=== PATIENT | male | born 1980 | race Caucasian/White ===

== ENCOUNTER 2016-12-18 00:19 | Observation (INO) | payer OTHER ==
[2016-12-18] MEDS ORDERED: SODIUM CHLORIDE 0.9% 500 ML IV STA (01:00)
[2016-12-18] MEDS ORDERED: SODIUM CHLORIDE 0.9% 1,000 ML IV STA (01:00)
[2016-12-18] MEDS ORDERED: ONDANSETRON 4 MG/2 ML VIAL IVP STA (01:00)
[2016-12-18] MEDS ORDERED: HYDROmorphone 0.5 MG/0.5 ML SYRINGE IVP STA (01:00)
[2016-12-18] MEDS ORDERED: PANTOPRAZOLE 40 MG/10 ML VIAL IVP STA (01:01)
[2016-12-18 01:30] LABS: Basophils % (A) 0 %; CH 30.5; CHCM 34.9; Eosinophils # (A) 0.1 k/uL (0-0.7); Eosinophils % (A) 1 %; HDW 2.67; HGB 15.6 gm/dL (13.0-17.5); Luc % (Auto) 1; Lymphocytes # (A) 1.6 k/uL (1.0-4.8); Lymphocytes % (A) 18 %; MCH 29.7 pg (25.0-35.0); MCHC 33.9 g/dL (31.0-37.0); MCV 87.8 fL (80.0-100.0); Mean Platelet Volume 8.3; Monocytes # (A) 0.5 k/uL (0-1.0); Monocytes % (A) 6 %; Neutrophils # (A) 6.5 k/uL (1.3-7.7); Neutrophils % (A) 74 %; RBC 5.23 m/uL (4.30-5.90); RDW 14.4 % (11.5-15.5); WBC 8.8 k/uL (3.8-10.6)
--- NOTE | 2016-12-18 01:33 | XR ---
EXAMINATION TYPE: XR KUB DATE OF EXAM: 12/18/2016 COMPARISON: NONE HISTORY: Abdominal pain TECHNIQUE: 2 views FINDINGS: There is no sign of intestinal obstruction or pneumoperitoneum. Fecal pattern is normal. Th ere is no sign of a mass. Lung bases are clear. There are no pathologic calcifications. IMPRESSION: Nonacute abdomen.
[2016-12-18 01:34] LABS: ALT 28 U/L (21-72); AST 17 U/L (17-59); Alkaline Phosphatase 94 U/L (38-126); Amylase <30 U/L (30-110); Anion Gap 13 mmol/L; Blood Urea Nitrogen 14 mg/dL (9-20); Calcium 9.7 mg/dL (8.4-10.2); Carbon Dioxide 24 mmol/L (22-30); Chloride 99 mmol/L (98-107); Glucose 206 mg/dL (74-99); Non-African American GFR(MDRD) >60 (>60 ml/min/1.73 sqM); Potassium 3.8 mmol/L (3.5-5.1); Sodium 136 mmol/L (137-145); Total Bilirubin 1.8 mg/dL (0.2-1.3); Total Protein 7.1 g/dL (6.3-8.2)
[2016-12-18 02:08] LABS: Appearance,Urine Clear (Clear); Bilirubin,Urine Negative (Negative); Glucose,Urine (UA) 3+ (Negative); Leukocyte Esterase,Urine Negative (Negative); Nitrite,Urine Negative (Negative); Protein,Urine Trace (Negative); Specific Gravity,Urine 1.018 (1.001-1.035); UA Billing (MACRO vs. MICRO) CHEM
[2016-12-18 02:15] LABS: Ketones,Urine 3+ (Negative)
--- NOTE | 2016-12-18 02:35 | ED ---
Nausea/Vomiting/Diarrhea HPI - General Chief complaint: Nausea/Vomiting/Diarrhea Stated complaint: Vomiting x4days Time Seen by Provider: 12/18/16 00:35 Source: patient Mode of arrival: ambulatory Limitations: no limitations - History of Present Illness Initial comments: 36 year-old male patient with past medical history significant for type 2 diabetes, gastric ulcer, and hiatal hernia presents to emergency department today for evaluation of abdominal pain, nausea, and vomiting since Wednesday. Patient states that Wednesday night he drank a pint of liquor, states that the next day he had onset of the symptoms. He states that he has been vomiting multiple times every day since then. He reports that he has been unable to keep any food or fluids down. He states that the pain is mostly located in his lower abdomen. He denies any radiation of the pain to his back. He describes the pain as a cramping burning pain. He states that he has been having a lot of retching and dry heaves. He states a couple of days ago he did have one episode of hematemesis. States that it was a large amount of bright red blood but denies any further episodes. He denies any constipation or diarrhea. Denies any hematochezia, melena, hematuria, dysuria, urinary frequency, or urinary urgency. Patient denies any recent rash, fever, chills, shortness breath , chest pain, back pain, numbness, tingling, dizziness, weakness, headache, visual changes, or any other complaints. He states that he has been having episodes similar to this over the last few months. Patient states he was admitted inpatient at a different hospital for similar symptoms approximately a month ago. Patient reports that there is no evidence of gastric ulcer with upper GI scope performed at that admission. States he did find a new hiatal hernia at that time. Patient states that he does take metformin for his diabetes however has been unable to keep any pills down over the last couple of days. He states that he does not check his sugar regularly at home. Patient states that he is a social drinker, states that he drinks approximately 3-4 times per month however does drink at least a pint of liquor each event. - Related Data Home Medications Medication Instructions Recorded Confirmed HYDROcodone/APAP 5-325MG [[place] 5] 1 each PO Q6HR PRN 12/01/14 12/01/14 metFORMIN HCL [Glucophage] 850 mg PO DAILY 12/01/14 12/01/14 Previous Rx's Medication Instructions Recorded Cephalexin [Keflex] 500 mg PO Q6HR #20 cap 12/01/14 Allergies Allergy/AdvReac Type Severity Reaction Status Date / Time morphine AdvReac Nausea & Verified 12/18/16 00:27 Vomiting Review of Systems ROS Statement: Those systems with pertinent positive or pertinent negative responses have been documented in the HPI. ROS Other: All systems not noted in ROS Statement are negative. Past Medical History Past Medical History: Diabetes Mellitus History of Any Multi-Drug Resistant Organisms: MRSA Date of last positivie culture/infection: December 2012 Additional Past Surgical History / Comment(s): left arm surgary with skin graft Past Psychological History: No Psychological Hx Reported Smoking Status: Current every day smoker Past Alcohol Use History: Heavy Past Drug Use History: None Reported General Exam Limitations: no limitations General appearance: alert, in distress, other (This is a well-developed, well- nourished 36-year-old male patient in mild distress. Vital signs upon presentation are temperature 97.8F, pulse 76, respirations 18, blood pressure 172/98, pulse ox 100% on room air.) Eye exam: Present: normal appearance, PERRL, EOMI. Absent: scleral icterus, conjunctival injection, periorbital swelling ENT exam: Present: normal exam, normal oropharynx. Absent: mucous membranes moist (Dry lips, dry mucous membranes.) Respiratory exam: Present: normal lung sounds bilaterally. Absent: respiratory distress, wheezes, rales, rhonchi, stridor Cardiovascular Exam: Present: regular rate, normal rhythm, normal heart sounds. Absent: systolic murmur, diastolic murmur, rubs, gallop, clicks GI/Abdominal exam: Present: soft, tenderness (Mild lower abdominal tenderness), normal bowel sounds. Absent: distended, guarding, rebound, rigid Neurological exam: Present: alert, oriented X3, CN II-XII intact Psychiatric exam: Present: normal affect, normal mood, anxious Skin exam: Present: warm, dry, intact, normal color. Absent: rash Course Vital Signs 12/18/16 12/18/16 12/18/16 00:25 01:16 02:29 Temperature 97.8 F 98.9 F Pulse Rate 76 65 62 Respiratory 18 20 18 Rate Blood Pressure 172/98 166/99 145/79 O2 Sat by Pulse 100 100 100 Oximetry Medical Decision Making - Medical Decision Making This is a 36 year-old male patient who presented tonight for complaints of abdominal pain, nausea, and vomiting for the last 4 days. Labs are performed and did show a glucose of 206, bilirubin 1.8, anion gap was 13, carbon dioxide was 24. Urinalysis shows trace protein, 3+ glucose, 3+ ketones. Patient did have mild improvement of symptoms with medication and fluids given here in the department. Patient will be admitted to Dr. Jamison for hyperglycemia and intractable nausea and vomiting. We will control his symptoms with fluids and nausea medication. We will also add Protonix daily. - Lab Data Result diagrams: 12/18/16 01:00 12/18/16 01:00 Lab Results 12/18/16 12/18/16 12/18/16 Range/Units 01:00 01:00 02:00 WBC 8.8 (3.8-10.6) k/uL RBC 5.23 (4.30-5.90) m/uL Hgb 15.6 (13.0-17.5) gm/dL Hct 46.0 (39.0-53.0) % MCV 87.8 (80.0-100.0) fL MCH 29.7 (25.0-35.0) pg MCHC 33.9 (31.0-37.0) g/dL RDW 14.4 (11.5-15.5) % Plt Count 214 (150-450) k/uL Neutrophils % 74 % Lymphocytes % 18 % Monocytes % 6 % Eosinophils % 1 % Basophils % 0 % Neutrophils # 6.5 (1.3-7.7) k/uL Lymphocytes # 1.6 (1.0-4.8) k/uL Monocytes # 0.5 (0-1.0) k/uL Eosinophils # 0.1 (0-0.7) k/uL Basophils # 0.0 (0-0.2) k/uL Sodium 136 L (137-145) mmol/L Potassium 3.8 (3.5-5.1) mmol/L Chloride 99 (98-107) mmol/L Carbon Dioxide 24 (22-30) mmol/L Anion Gap 13 mmol/L BUN 14 (9-20) mg/dL Creatinine 0.80 (0.66-1.25) mg/dL Est GFR (MDRD) Af Amer >60 (>60 ml/min/1.73 sqM) Est GFR (MDRD) Non-Af >60 (>60 ml/min/1.73 sqM) Glucose 206 H (74-99) mg/dL Calcium 9.7 (8.4-10.2) mg/dL Total Bilirubin 1.8 H (0.2-1.3) mg/dL AST 17 (17-59) U/L ALT 28 (21-72) U/L Alkaline Phosphatase 94 (38-126) U/L Total Protein 7.1 (6.3-8.2) g/dL Albumin 4.3 (3.5-5.0) g/dL Amylase <30 L (30-110) U/L Lipase 69 (23-300) U/L Urine Color Yellow Urine Appearance Clear (Clear) Urine pH 7.0 (5.0-8.0) Ur Specific [place] 1.018 (1.001-1.035) Urine Protein Trace H (Negative) Urine Glucose (UA) 3+ H (Negative) Urine Ketones 3+ H (Negative) Urine Blood Negative (Negative) Urine Nitrite Negative (Negative) Urine Bilirubin Negative (Negative) Urine Urobilinogen 8.0 (<2.0) mg/dL Ur Leukocyte Esterase Negative (Negative) - Radiology Data Radiology results: report reviewed, image reviewed 2 views of the abdomen shows no sign of intestinal obstruction or pneumoperitoneum. Fecal pattern is normal. There is no sign of a mass. Lung bases are clear. There are no pathologic calcifications. Impression by Dr. Martell shows nonacute abdomen. Disposition Clinical Impression: Hyperglycemia, Abdominal pain, Intractable nausea and vomiting Disposition: ADMITTED IP TO THIS [facility] Condition: Fair Referrals: Naz Oliva DO [Primary Care Provider] - 1-2 days Decision to Admit Reason: Admit from EC Decision Date: 12/18/16 Decision Time: 02:42
[2016-12-18] MEDS ORDERED: ONDANSETRON 4 MG/2 ML VIAL IVP PRN (02:43)
[2016-12-18] MEDS ORDERED: NALOXONE 0.4 MG/ML 1 ML VIAL IV PRN (02:43)
[2016-12-18] MEDS: SODIUM CHLORIDE 0.9% 1,000 ML IV SCH ×2 (02:56→15:35)
[2016-12-18 03:07] LABS: Glucose,Whole Blood 173 mg/dL (75-99)
[2016-12-18 07:21] LABS: Glucose,Whole Blood 194 mg/dL (75-99)
[2016-12-18] MEDS: HYDROmorphone 0.5 MG/0.5 ML SYRINGE IVP PRN ×5 (07:28→21:40)
[2016-12-18] MEDS: INSULIN LISPRO (humaLOG) 300 UNIT/3 ML VIAL SQ SCH ×4 (07:28→20:59)
[2016-12-18] MEDS: metFORMIN 500 MG TAB PO SCH (11:24)
[2016-12-18 12:12] LABS: Glucose,Whole Blood 209 mg/dL (75-99)
[2016-12-18] MEDS: ONDANSETRON 4 MG/2 ML VIAL IVP PRN ×2 (14:39→21:03)
[2016-12-18 17:01] LABS: Glucose,Whole Blood 227 mg/dL (75-99)
[2016-12-18] MEDS: METOCLOPRAMIDE 5 MG/ML 2 ML VIAL IVP PRN ×2 (18:09→23:36)
[2016-12-18 21:13] LABS: Glucose,Whole Blood 144 mg/dL (75-99)
--- NOTE | 2016-12-19 00:14 | P.HPIM ---
History of Present Illness H&P Date: 12/18/16 Chief Complaint: Nausea and vomiting Patient is a 36-year-old male with past medical history significant for type 2 diabetes, gastric ulcer, and hiatal hernia presents to ER for evaluation of abdominal pain, nausea, and vomiting since Wednesday. Patient states that Wednesday night he drank a pint of liquor, states that the next day he had onset of the symptoms. He states that he has been vomiting multiple times every day since then. He reports that he has been unable to keep any food or fluids down. He states that the pain is mostly located in his lower abdomen. He denies any radiation of the pain to his back. He describes the pain as a cramping burning pain. He states that he has been having a lot of retching and dry heaves. He states a couple of days ago he did have one episode of hematemesis. He states that he has been having episodes similar to this over the last few months. Patient states he was admitted inpatient at [facility] with for similar symptoms approximately a month ago. Patient reports that there is no evidence of gastric ulcer with upper GI scope performed at that admission. States he did find a new hiatal hernia at that time. Patient states that he does take metformin for his diabetes however has been unable to keep any pills down over the last couple of days. Patient states that he is a social drinker, states that he drinks approximately 3-4 times per month however does drink at least a pint of liquor each event. Review of Systems Constitutional: Patient denies any fever or chills . No generalized weakness or weight loss. Abdomen: Patient does have nausea vomiting and abdominal pain. No diarrhea Cardiovascular: Patient denies any chest pain or short of breath no palpitations. Respiratory: patient denied any cough is from production. No shortness of breath Neurologic: Patient denied any numbness or tingling headache. Musculoskeletal: Patient denies any complaints of joint swelling or deformity. Skin: Negative Psychiatric: Negative Endocrine: No heat or cold intolerance. No recent weight gain. Genitourinary: No dysuria or hematuria. All other 14 point ROS negative except the above Past Medical History Past Medical History: Diabetes Mellitus History of Any Multi-Drug Resistant Organisms: MRSA Date of last positivie culture/infection: December 2012 MDRO Source:: left arm Additional Past Surgical History / Comment(s): left arm surgary with skin graft Past Anesthesia/Blood Transfusion Reactions: No Reported Reaction Past Psychological History: No Psychological Hx Reported Smoking Status: Current every day smoker Past Alcohol Use History: Heavy Past Drug Use History: None Reported - Past Family History Mother Family Medical History: Cancer Additional Family Medical History / Comment(s): skin ca Medications and Allergies Home Medications Medication Instructions Recorded Confirmed Type Ondansetron [Zofran] 4 mg PO Q8H PRN 12/18/16 12/18/16 History Pantoprazole Sodium [Pantoprazole 40 mg PO DAILY 12/18/16 12/18/16 History Sodium] metFORMIN HCL [Glucophage] 500 mg PO DAILY 12/18/16 12/18/16 History Allergies Allergy/AdvReac Type Severity Reaction Status Date / Time morphine AdvReac Nausea & Verified 12/18/16 00:27 Vomiting Physical Exam Vitals: Vital Signs Temp Pulse Pulse Resp BP BP BP 12/18/16 07:00 97.4 F L 69 16 160/102 143/86 12/18/16 03:24 98.9 F 69 18 148/87 12/18/16 03:10 98.7 F 62 18 144/85 12/18/16 02:29 62 18 145/79 12/18/16 01:16 98.9 F 65 20 166/99 12/18/16 00:25 97.8 F 76 18 172/98 Pulse Ox 12/18/16 07:00 99 12/18/16 03:24 99 12/18/16 03:10 100 12/18/16 02:29 100 12/18/16 01:16 100 12/18/16 00:25 100 Intake and Output 12/17/16 12/18/16 12/18/16 22:59 06:59 14:59 Intake Total 590 Balance 590 Intake: Oral 590 Other: # Voids 0 Weight 74.843 kg PHYSICAL EXAMINATION: Patient is lying in the bed comfortably, no acute distress, awake alert and oriented.. HEENT: Normocephalic. Neck is supple. Pupils reactive. Nostrils clear. Oral cavity is moist. Ears reveal no drainage. Neck reveals no JVD, carotid bruits, or thyromegaly. CHEST EXAMINATION: Trachea is central. Symmetrical expansion. Lung brown clear to auscultation and percussion. CARDIAC: Normal S1, S2 with no gallops. No murmurs ABDOMEN: Soft. Mild lower abdominal tenderness. Bowel sounds normal. No organomegaly. No abdominal bruits. Extremities: reveal no edema. No clubbing or cyanosis Neurologically awake, alert, oriented x3 with well-coordinated movements. No focal deficits noted Skin: No rash or skin lesions. Psychiatric: Operative. Nonsuicidal Musculoskeletal: No joint swelling or deformity. Normal range of motion. Results CBC & Chem 7: 12/18/16 01:00 12/18/16 01:00 Labs: Abnormal Lab Results - Last 24 Hours (Table) 12/18/16 12/18/16 12/18/16 Range/Units 01:00 02:00 03:04 Sodium 136 L (137-145) mmol/L Glucose 206 H (74-99) mg/dL POC Glucose (mg/dL) 173 H (75-99) mg/dL Total Bilirubin 1.8 H (0.2-1.3) mg/dL Amylase <30 L (30-110) U/L Urine Protein Trace H (Negative) Urine Glucose (UA) 3+ H (Negative) Urine Ketones 3+ H (Negative) 12/18/16 Range/Units 07:15 Sodium (137-145) mmol/L Glucose (74-99) mg/dL POC Glucose (mg/dL) 194 H (75-99) mg/dL Total Bilirubin (0.2-1.3) mg/dL Amylase (30-110) U/L Urine Protein (Negative) Urine Glucose (UA) (Negative) Urine Ketones (Negative) Thrombosis Risk Factor Assmnt - Choose All That Apply Any of the Below Risk Factors Present?: No Other Risk Factors: No Other congenital or acquired thrombophilia - If yes, enter type in comment: No Thrombosis Risk Factor Assessment Level: Very Low Risk Assessment and Plan Assessment: #1 intractable nausea vomiting or abdominal pain 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 #2 possible gastroparesis with long-standing history of diabetes mellitus for 10 years #3 hiatal hernia with history of EGD a month ago #4 diabetes type 2 with hyperglycemia. Will check HbA1c #5 smoking #6 occasional alcohol use. Plan: Patient will be continued on IV hydration and symptomatic management for nausea and vomiting. Continue the pain management and follow closely. Will consult GI. Insulin sliding scale and further recommendations based on the clinical course.
[2016-12-19] MEDS: ONDANSETRON 4 MG/2 ML VIAL IVP PRN ×2 (03:43→10:18)
[2016-12-19] MEDS: HYDROmorphone 0.5 MG/0.5 ML SYRINGE IVP PRN (03:46)
[2016-12-19] MEDS: SODIUM CHLORIDE 0.9% 1,000 ML IV SCH (03:53)
[2016-12-19 07:30] LABS: Glucose,Whole Blood 162 mg/dL (75-99)
[2016-12-19 07:54] VITALS: RESP 16
[2016-12-19] MEDS: INSULIN LISPRO (humaLOG) 300 UNIT/3 ML VIAL SQ SCH ×2 (08:04→11:58)
[2016-12-19] MEDS: metFORMIN 500 MG TAB PO SCH ×2 (08:04→08:29)
[2016-12-19] MEDS: METOCLOPRAMIDE 5 MG/ML 2 ML VIAL IVP PRN ×2 (08:05→13:39)
[2016-12-19] MEDS ORDERED: HYDROmorphone 1 MG/ML 1 ML SYRINGE IVP PRN (08:23)
[2016-12-19] MEDS ORDERED: PANTOPRAZOLE 40 MG/10 ML VIAL IV SCH (09:00)
[2016-12-19 12:03] LABS: Glucose,Whole Blood 168 mg/dL (75-99)
[2016-12-19 14:45] VITALS: BP 140/87; PULSE 82; TEMP 98.4
--- NOTE | 2017-02-01 21:55 | P.DS ---
Providers Date of admission: 12/18/16 02:52 Expected date of discharge: 12/19/16 Attending physician: Iban Jamison Primary care physician: Naz Oliva [facility] Course: Discharge diagnosis #1 intractable nausea vomiting or abdominal pain 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 #2 possible gastroparesis with long-standing history of diabetes mellitus for 10 years #3 hiatal hernia with history of EGD a month ago #4 diabetes type 2 with hyperglycemia. Will check HbA1c #5 smoking #6 occasional alcohol use. Hospital course Patient is a 36-year-old male with past medical history significant for type 2 diabetes, gastric ulcer, and hiatal hernia presents to ER for evaluation of abdominal pain, nausea, and vomiting since Wednesday. Patient states that Wednesday night he drank a pint of liquor, states that the next day he had onset of the symptoms. He states that he has been vomiting multiple times every day since then. He reports that he has been unable to keep any food or fluids down. He states that the pain is mostly located in his lower abdomen. He denies any radiation of the pain to his back. He describes the pain as a cramping burning pain. He states that he has been having a lot of retching and dry heaves. He states a couple of days ago he did have one episode of hematemesis. He states that he has been having episodes similar to this over the last few months. Patient states he was admitted inpatient at [facility] with for similar symptoms approximately a month ago. Patient reports that there is no evidence of gastric ulcer with upper GI scope performed at that admission. States he did find a new hiatal hernia at that time. Patient states that he does take metformin for his diabetes however has been unable to keep any pills down over the last couple of days. Patient states that he is a social drinker, states that he drinks approximately 3-4 times per month however does drink at least a pint of liquor each event. Patient was continued on IV hydration and symptomatic management for nausea and vomiting. Continued the pain management and followed closely. Insulin sliding scale. Patient did improve clinically. Discharge physical examination was done Patient Condition at Discharge: Fair Plan - Discharge Summary New Discharge Prescriptions: Continue metFORMIN HCL [Glucophage] 500 mg PO DAILY Pantoprazole Sodium 40 mg PO DAILY Ondansetron [Zofran] 4 mg PO Q8H PRN PRN Reason: Nausea No Action Sucralfate [Carafate] 1 gm PO AC-TID Metoclopramide HCl [Reglan] 5 mg PO Q8HR PRN #20 tablet PRN Reason: Nausea And Vomiting Discharge Medication List Ondansetron [Zofran] 4 mg PO Q8H PRN 12/18/16 [History] Pantoprazole Sodium 40 mg PO DAILY 12/18/16 [History] metFORMIN HCL [Glucophage] 500 mg PO DAILY 12/18/16 [History] Sucralfate [Carafate] 1 gm PO AC-TID 12/22/16 [History] Metoclopramide HCl [Reglan] 5 mg PO Q8HR PRN #20 tablet 01/03/17 [Rx] Follow up Appointment(s)/Referral(s): Naz Oliva DO [Primary Care Provider] - 1-2 days Patient Instructions/Handouts: Gastritis (DC), Diet for Stomach Ulcers and Gastritis (GEN) Discharge Disposition: HOME SELF-CARE
== END 2016-12-19 14:58 | disposition home or self-care (01) ==
LOC: EC 00:19 → 4MS4W 02:52
PROVIDERS: ADMIT Hospitalist; ATTEND Hospitalist
DX: R11.2 Nausea with vomiting, unspecified (principal); R10.30 Lower abdominal pain, unspecified; K29.20 Alcoholic gastritis without bleeding; K44.9 Diaphragmatic hernia without obstruction or gangrene; E11.65 Type 2 diabetes mellitus with hyperglycemia; F17.200 Nicotine dependence, unspecified, uncomplicated; Z86.14 Personal history of Methicillin resistant Staphylococcus aureus infection; Z79.84 Long term (current) use of oral hypoglycemic drugs; Z79.899 Other long term (current) drug therapy; Z88.5 Allergy status to narcotic agent; K92.0 Hematemesis
CPT/HCPCS: 99285; 96374 ×2; 96375 ×4; 96361 ×5; 96376 ×2; 36415; 80053; 82150; 83690; 85025; 81003; 83036; 74000; G0378 ×2; J2765 ×2; J2405 ×2; C9113 ×2; J1170 ×2

== ENCOUNTER → 2016-12-25 | Outpatient (CLI) | payer OTHER ==
--- NOTE | 2016-12-25 11:41 | NM ---
EXAMINATION TYPE: NM hepatobiliary w EF DATE OF EXAM: 12/25/2016 COMPARISON: CT abdomen pelvis dated 01/01/2017 HISTORY: Right upper quadrant pain TECHNIQUE: After the intravenous administration of 5.64 mCi Tc 99m Mebrofenin hepatobiliary scintigra phy is performed. Immediate images post injection. FINDINGS: There is satisfactory initial accumulation of tracer by the liver. The gallbladder is visualized wit hin 30 minutes. The small bowel activity is noted within 45 minutes. At one hour 8 ounces of oral e nsure plus is given to mimic CCK and gallbladder ejection fraction is calculated at 40 %, in the norm al range although approaching abnormal. Therefore there is no scintigraphic evidence of cystic or co mmon bile duct obstruction to suggest acute cholecystitis or gallbladder dyskinesia. IMPRESSION: 1. No evidence of acute or chronic cholecystitis. 2. Normal gallbladder ejection fraction of 40% and therefore no scintigraphic evidence of biliary dys kinesia, however the ejection fraction approaches an abnormal value and surgical consultation could b e sought if the patient's symptoms and laboratory values are fitting.
== END | disposition home or self-care (01) ==
LOC: RADNMMAIN 08:59
PROVIDERS: ATTEND Family Medicine
DX: R10.11 Right upper quadrant pain (principal)
CPT/HCPCS: 78226; A9537

== ENCOUNTER 2017-02-20 11:04 | Emergency (ER) | payer OTHER ==
[2017-02-20 11:31] VITALS: RESP 18
[2017-02-20] MEDS ORDERED: SODIUM CHLORIDE 0.9% 1,000 ML IV STA ×2 (12:14)
[2017-02-20] MEDS ORDERED: METOCLOPRAMIDE 5 MG/ML 2 ML VIAL IVP STA (12:14)
[2017-02-20] MEDS ORDERED: KETOROLAC 30 MG/ML 1 ML VIAL IVP STA (12:14)
[2017-02-20] MEDS ORDERED: diphenhydrAMINE 50 MG/ML 1 ML VIAL IVP STA (12:14)
--- NOTE | 2017-02-20 12:27 | ED ---
Abdominal Pain HPI - General Chief Complaint: Abdominal Pain Stated Complaint: ABDOMINAL PAIN Time Seen by Provider: 02/20/17 12:06 Source: patient, RN notes reviewed, old records reviewed Mode of arrival: ambulatory Limitations: no limitations - History of Present Illness Initial Comments: This is a 36-year-old male presents emergency Department a chief complaint of abdominal pain for the past 4 months. Patient reports his been acutely worse over the past few days. He's had multiple episodes of vomiting. He was seen by his primary care provider a few days ago and was given a shot for nausea. Patient states is continue to persist. He is currently on Protonix, Carafate, and Zofran due to gastritis and Peptic ulcers. Patient reports he's been taking his medications. Patient states that the pain is mainly in the lower abdomen at this time. Patient is clinically liquid vomit in the emergency department today. - Related Data Home Medications Medication Instructions Recorded Confirmed Ondansetron [Zofran] 4 mg PO BID 12/18/16 02/20/17 Pantoprazole Sodium 40 mg PO BID 12/18/16 02/20/17 metFORMIN HCL [Glucophage] 500 mg PO BID 12/18/16 02/20/17 Previous Rx's Medication Instructions Recorded Ketorolac [Toradol] 10 mg PO BID #10 tab 02/20/17 Metoclopramide [Reglan] 10 mg PO TID #12 tab 02/20/17 diphenhydrAMINE [Benadryl] 25 mg PO HS PRN #20 capsule 02/20/17 Allergies Allergy/AdvReac Type Severity Reaction Status Date / Time hydromorphone [From Dilaudid] AdvReac Nausea & Verified 02/20/17 12:13 Vomiting morphine AdvReac Nausea & Verified 02/20/17 12:13 Vomiting Review of Systems ROS Statement: Those systems with pertinent positive or pertinent negative responses have been documented in the HPI. ROS Other: All systems not noted in ROS Statement are negative. Past Medical History Past Medical History: Diabetes Mellitus History of Any Multi-Drug Resistant Organisms: MRSA Date of last positivie culture/infection: December 2012 MDRO Source:: left arm Additional Past Surgical History / Comment(s): left arm surgery with skin graft Past Anesthesia/Blood Transfusion Reactions: No Reported Reaction Past Psychological History: No Psychological Hx Reported Smoking Status: Current every day smoker Past Alcohol Use History: Occasional Past Drug Use History: Marijuana - Past Family History Mother Family Medical History: Cancer Additional Family Medical History / Comment(s): skin ca General Exam - General Exam Comments Initial Comments: 36-year-old male. Patient appears in acute discomfort. Limitations: no limitations General appearance: alert, in no apparent distress Head exam: Present: atraumatic, normocephalic, normal inspection Eye exam: Present: normal appearance, PERRL, EOMI. Absent: scleral icterus, conjunctival injection, periorbital swelling ENT exam: Present: normal exam, mucous membranes moist Neck exam: Present: normal inspection. Absent: tenderness, meningismus, lymphadenopathy Respiratory exam: Present: normal lung sounds bilaterally. Absent: respiratory distress, wheezes, rales, rhonchi, stridor Cardiovascular Exam: Present: regular rate, normal rhythm, normal heart sounds. Absent: systolic murmur, diastolic murmur, rubs, gallop, clicks GI/Abdominal exam: Present: soft, tenderness (Minimal lower quadrant tenderness. No rebound or guarding.), normal bowel sounds. Absent: distended, guarding, rebound, rigid Extremities exam: Present: normal inspection, full ROM, normal capillary refill. Absent: tenderness, pedal edema, joint swelling, calf tenderness Back exam: Present: normal inspection Neurological exam: Present: alert, oriented X3, CN II-XII intact Psychiatric exam: Present: normal affect, normal mood Skin exam: Present: warm, dry, intact, normal color. Absent: rash Course Vital Signs 02/20/17 02/20/17 11:28 14:12 Temperature 99.2 F 99.1 F Pulse Rate 89 74 Respiratory 18 18 Rate Blood Pressure 136/101 146/90 O2 Sat by Pulse 100 99 Oximetry - Reevaluation(s) Reevaluation #1: 02/20/17 14:06 Patient is reevaluated and resting heavily bed. Reports he has no abdominal pain at this time. Discussed with primary care provider. Medical Decision Making - Medical Decision Making This is a 36-year-old male presents emergency Department a chief complaint of increased nausea and vomiting over the past 3 days of abdominal pain. Patient is currently being treated for gastritis with Carafate, Pepcid, and Zofran. Patient reports that he's had worsening nausea and lower pain. Patient reports no changes in bowel habits. Patient reports his been having the same pain for the past 4 months. Patient's been evaluated Multiple ERs. Patient was seen in the emergency department approximately one month ago for similar complaints, had a full workup, and is admitted at that time. His discharge for with diagnosed gastritis started on those medications. He went to his primary care doctor's appointment on Wednesday. They gave him a shot of antinausea medicine. Patient was told to discontinue Carafate. At this time patient's labwork was reviewed and shows normal changes. Vitals are is stable. Patient is minimal tenderness on exam lower quadrant.. I discussed possibility of cyclic vomiting syndrome as well as gastroparesis. He is a type II diabetic. Patient was reevaluated after receiving IV fluids, Reglan, Benadryl and Toradol. He reports his pain is dimensions time is feeling better. I discussed that patient should return to the emergency department if any alarming signs symptoms occur. Discussed possible families had multiple in the past few months , discussed with his labwork reviewed to be normal at 1 or repeated again at this time. Patient agrees. Patient will be given a referral for GI specialist , as well as discussed continuing Reglan and Benadryl for his nausea and to add Zofran. Discussed return to emergency department if any alarming signs or symptoms occur. - Lab Data Result diagrams: 02/20/17 12:24 02/20/17 12:24 Lab Results 02/20/17 02/20/17 02/20/17 Range/Units 12:24 12:24 12:51 WBC 10.0 (3.8-10.6) k/uL RBC 5.47 (4.30-5.90) m/uL Hgb 16.0 (13.0-17.5) gm/dL Hct 48.1 (39.0-53.0) % MCV 87.9 (80.0-100.0) fL MCH 29.2 (25.0-35.0) pg MCHC 33.2 (31.0-37.0) g/dL RDW 14.7 (11.5-15.5) % Plt Count 269 (150-450) k/uL Neutrophils % 76 % Lymphocytes % 18 % Monocytes % 4 % Eosinophils % 0 % Basophils % 0 % Neutrophils # 7.6 (1.3-7.7) k/uL Lymphocytes # 1.8 (1.0-4.8) k/uL Monocytes # 0.4 (0-1.0) k/uL Eosinophils # 0.0 (0-0.7) k/uL Basophils # 0.0 (0-0.2) k/uL Sodium 133 L (137-145) mmol/L Potassium 4.2 (3.5-5.1) mmol/L Chloride 96 L (98-107) mmol/L Carbon Dioxide 26 (22-30) mmol/L Anion Gap 11 mmol/L BUN 12 (9-20) mg/dL Creatinine 0.61 L (0.66-1.25) mg/dL Est GFR (MDRD) Af Amer >60 (>60 ml/min/1.73 sqM) Est GFR (MDRD) Non-Af >60 (>60 ml/min/1.73 sqM) Glucose 256 H (74-99) mg/dL Calcium 9.8 (8.4-10.2) mg/dL Total Bilirubin 1.5 H (0.2-1.3) mg/dL AST 23 (17-59) U/L ALT 36 (21-72) U/L Alkaline Phosphatase 111 (38-126) U/L Total Protein 7.2 (6.3-8.2) g/dL Albumin 4.5 (3.5-5.0) g/dL Amylase <30 L (30-110) U/L Lipase 66 (23-300) U/L Urine Color Yellow Urine Appearance Clear (Clear) Urine pH 6.5 (5.0-8.0) Ur Specific [place] 1.024 (1.001-1.035) Urine Protein Trace H (Negative) Urine Glucose (UA) 4+ H (Negative) Urine Ketones 1+ H (Negative) Urine Blood Negative (Negative) Urine Nitrite Negative (Negative) Urine Bilirubin Negative (Negative) Urine Urobilinogen <2.0 (<2.0) mg/dL Ur Leukocyte Esterase Negative (Negative) - Radiology Data Radiology results: report reviewed No acute intra-abdominal abnormality. Disposition Clinical Impression: Gastritis Disposition: HOME SELF-CARE Condition: Good Instructions: Gastritis (ED), Acute Nausea and Vomiting (ED) Additional Instructions: Patient advised to follow-up with primary care provider. Take the nausea medicine as prescribed. Return to emergency department if any alarming signs or symptoms occur. Prescriptions: diphenhydrAMINE [Benadryl] 25 mg PO HS PRN #20 capsule PRN Reason: Pain Ketorolac [Toradol] 10 mg PO BID #10 tab Metoclopramide [Reglan] 10 mg PO TID #12 tab Referrals: Naz Oliva DO [Primary Care Provider] - 1-2 days Vincent Carrillo MD [STAFF PHYSICIAN] - 1-2 days Time of Disposition: 14:04
[2017-02-20 12:34] LABS: Basophils % (A) 0 %; Eosinophils % (A) 0 %; HCT 48.1 % (39.0-53.0); Lymphocytes # (A) 1.8 k/uL (1.0-4.8); Lymphocytes % (A) 18 %; MCH 29.2 pg (25.0-35.0); MCHC 33.2 g/dL (31.0-37.0); MCV 87.9 fL (80.0-100.0); Mean Platelet Volume 7.8; Monocytes # (A) 0.4 k/uL (0-1.0); Monocytes % (A) 4 %; Neutrophils # (A) 7.6 k/uL (1.3-7.7); Neutrophils % (A) 76 %; Platelet Count 269 k/uL (150-450); RBC 5.47 m/uL (4.30-5.90); RDW 14.7 % (11.5-15.5)
[2017-02-20 12:49] LABS: ALT 36 U/L (21-72); AST 23 U/L (17-59); Albumin 4.5 g/dL (3.5-5.0); Alkaline Phosphatase 111 U/L (38-126); Amylase <30 U/L (30-110); Anion Gap 11 mmol/L; Blood Urea Nitrogen 12 mg/dL (9-20); Calcium 9.8 mg/dL (8.4-10.2); Carbon Dioxide 26 mmol/L (22-30); Chloride 96 mmol/L (98-107); Glucose 256 mg/dL (74-99); Lipase 66 U/L (23-300); Potassium 4.2 mmol/L (3.5-5.1); Sodium 133 mmol/L (137-145); Total Bilirubin 1.5 mg/dL (0.2-1.3); Total Protein 7.2 g/dL (6.3-8.2)
--- NOTE | 2017-02-20 12:52 | XR ---
EXAMINATION TYPE: XR KUB , 2 VIEWS DATE OF EXAM ORDERED: 02/20/2017 HISTORY: abdominal pain. COMPARISON: Previous study dated 01/02/2017. FINDINGS: The lung bases are clear. Within the abdomen, the abdominal gas pattern is normal. There is no evidence of obstruction or free air. No unusual calcifications are seen. IMPRESSION: NO ACUTE INTRA-ABDOMINAL ABNORMALITY.
[2017-02-20 13:01] LABS: Appearance,Urine Clear (Clear); Bilirubin,Urine Negative (Negative); Blood,Urine Negative (Negative); Color,Urine Yellow; Glucose,Urine (UA) 4+ (Negative); Ketones,Urine 1+ (Negative); Leukocyte Esterase,Urine Negative (Negative); Nitrite,Urine Negative (Negative); PH, Urine 6.5 (5.0-8.0); Protein,Urine Trace (Negative); Specific Gravity,Urine 1.024 (1.001-1.035); Urobilinogen,Urine <2.0 mg/dL (<2.0)
[2017-02-20 14:12] VITALS: BP 146/90; PULSE 74; TEMP 99.1
== END 2017-02-20 14:28 | disposition home or self-care (01) ==
LOC: EC 11:04
DX: K29.70 Gastritis, unspecified, without bleeding (principal); K27.9 Peptic ulcer, site unspecified, unspecified as acute or chronic, without hemorrhage or perforation; E11.9 Type 2 diabetes mellitus without complications; F17.200 Nicotine dependence, unspecified, uncomplicated; Z79.84 Long term (current) use of oral hypoglycemic drugs; Z79.899 Other long term (current) drug therapy; Z88.5 Allergy status to narcotic agent; Z86.14 Personal history of Methicillin resistant Staphylococcus aureus infection
CPT/HCPCS: 36415; 80053; 82150; 83690; 85025; 81003; 74018; 99284; 96374; 96375 ×2; 96361 ×2; J1200; J2765; J1885

== ENCOUNTER → 2017-03-31 | Outpatient (CLI) | payer OTHER ==
--- NOTE | 2017-03-31 09:58 | NM ---
EXAMINATION TYPE: NM gastric emptying study DATE OF EXAM: 03/31/2017 COMPARISON: NONE HISTORY: 36-year-old male with nausea and vomiting Technique: Following administration of 2.03 mCi Tc 99m Sulfur Colloid with 1 cup of oatmeal projectio n images of the abdomen were obtained at 85 minutes post ingestion. When possible, both anterior and posterior projection images were obtained to allow the calculation of the geometric mean activity. FINDINGS: Clearance: 2 % Half-life: 1633 min IMPRESSION: Imaging performed up to 85 minutes shows a clearance of only 2%. Findings can be in keeping with ciera roparesis.
== END | disposition home or self-care (01) ==
LOC: RADNMMAIN 07:04
PROVIDERS: ATTEND Internal Medicine Gastroenterology
DX: R11.2 Nausea with vomiting, unspecified (principal)
CPT/HCPCS: 78264; A9541

== ENCOUNTER 2017-08-08 00:04 | Observation (INO) | payer BC, OTHER ==
[2017-08-08] MEDS ORDERED: ONDANSETRON 4 MG/2 ML VIAL IVP STA (00:33)
[2017-08-08] MEDS ORDERED: SODIUM CHLORIDE 0.9% 500 ML IV STA (00:33)
[2017-08-08] MEDS ORDERED: PANTOPRAZOLE 40 MG/10 ML VIAL IVP STA (00:33)
--- NOTE | 2017-08-08 00:35 | ED ---
GI Bleed HPI - General Chief complaint: GI Bleed Stated complaint: Vomiting blood Time Seen by Provider: 08/08/17 00:20 Source: patient Mode of arrival: wheelchair Limitations: no limitations - History of Present Illness Initial comments: This patient is a 37-year-old man reports to have history of gastroparesis as well as previous "bleeding ulcers," who presents to be evaluated for hours of epigastric pain and some coffee-ground emesis. He states that the symptoms are similar to previous episodes of gastroparesis. He does note he had been in the hospital at [facility] over week ago for similar symptoms. MD complaint: blood streaked emesis, coffee ground emesis -: hour(s) Radiation: none Quality: burning, dull Consistency: constant Improves with: none Worsens with: vomiting Context: history of GI bleed Associated Symptoms: abdominal pain, nausea, vomiting Treatments Prior to Arrival: none - Related Data Home Medications Medication Instructions Recorded Confirmed Ondansetron [Zofran] 4 mg PO BID 12/18/16 02/20/17 Pantoprazole Sodium 40 mg PO DAILY 12/18/16 02/20/17 metFORMIN HCL [Glucophage] 500 mg PO BID 12/18/16 02/20/17 Previous Rx's Medication Instructions Recorded Metoclopramide [Reglan] 10 mg PO TID #12 tab 02/20/17 Famotidine [Pepcid] 20 mg PO BID #14 tablet 08/08/17 Allergies Allergy/AdvReac Type Severity Reaction Status Date / Time hydromorphone [From Dilaudid] AdvReac Nausea & Verified 08/08/17 05:38 Vomiting morphine AdvReac Nausea & Verified 08/08/17 05:38 Vomiting Review of Systems ROS Statement: Those systems with pertinent positive or pertinent negative responses have been documented in the HPI. ROS Other: All systems not noted in ROS Statement are negative. Constitutional: Denies: fever, chills ENT: Denies: throat pain Respiratory: Denies: cough, dyspnea, wheezes, hemoptysis Cardiovascular: Denies: chest pain, palpitations, edema, syncope Gastrointestinal: Reports: abdominal pain, nausea, vomiting, hematemesis. Denies: diarrhea, constipation, melena, hematochezia Genitourinary: Denies: dysuria, hematuria Musculoskeletal: Denies: back pain Skin: Denies: rash Neurological: Denies: headache, weakness, numbness Past Medical History Past Medical History: Diabetes Mellitus Additional Past Medical History / Comment(s): bleeding ulcers, gastroparesis History of Any Multi-Drug Resistant Organisms: MRSA Date of last positivie culture/infection: December 2012 MDRO Source:: left arm Additional Past Surgical History / Comment(s): left arm surgery with skin graft Past Anesthesia/Blood Transfusion Reactions: No Reported Reaction Past Psychological History: No Psychological Hx Reported Smoking Status: Current every day smoker Past Alcohol Use History: Occasional Past Drug Use History: Marijuana - Past Family History Mother Family Medical History: Cancer Additional Family Medical History / Comment(s): skin ca General Exam Limitations: no limitations General appearance: alert, in no apparent distress Head exam: Present: atraumatic Eye exam: Present: normal appearance, PERRL, EOMI. Absent: scleral icterus, conjunctival injection ENT exam: Present: normal oropharynx Neck exam: Present: normal inspection Respiratory exam: Present: normal lung sounds bilaterally. Absent: respiratory distress, wheezes, rales, rhonchi Cardiovascular Exam: Present: regular rate, normal rhythm, normal heart sounds. Absent: systolic murmur, diastolic murmur, rubs, gallop GI/Abdominal exam: Present: soft, tenderness. Absent: distended Extremities exam: Present: normal inspection, normal capillary refill. Absent: pedal edema, calf tenderness Back exam: Present: normal inspection. Absent: CVA tenderness (R), CVA tenderness (L) Neurological exam: Present: alert Skin exam: Present: warm, dry, intact, normal color Course Vital Signs 08/08/17 08/08/17 08/08/17 00:20 01:57 03:07 Temperature 98.6 F 98.3 F Pulse Rate 98 65 75 Respiratory 20 18 18 Rate Blood Pressure 183/97 154/100 157/95 O2 Sat by Pulse 98 100 99 Oximetry 08/08/17 08/08/17 04:33 06:24 Temperature 98.7 F Pulse Rate 82 69 Respiratory 18 18 Rate Blood Pressure 161/94 157/93 O2 Sat by Pulse 100 100 Oximetry Medical Decision Making - Lab Data Result diagrams: 08/08/17 00:29 08/08/17 00:29 Lab Results 08/08/17 08/08/17 08/08/17 Range/Units 00:29 00:29 00:29 WBC 13.7 H (3.8-10.6) k/uL RBC 5.12 (4.30-5.90) m/uL Hgb 15.0 (13.0-17.5) gm/dL Hct 43.4 (39.0-53.0) % MCV 84.8 (80.0-100.0) fL MCH 29.3 (25.0-35.0) pg MCHC 34.6 (31.0-37.0) g/dL RDW 14.1 (11.5-15.5) % Plt Count 294 (150-450) k/uL Neutrophils % 85 % Lymphocytes % 10 % Monocytes % 4 % Eosinophils % 1 % Basophils % 0 % Neutrophils # 11.7 H (1.3-7.7) k/uL Lymphocytes # 1.3 (1.0-4.8) k/uL Monocytes # 0.5 (0-1.0) k/uL Eosinophils # 0.1 (0-0.7) k/uL Basophils # 0.0 (0-0.2) k/uL PT (9.0-12.0) sec INR (<1.2) APTT (22.0-30.0) sec Sodium (137-145) mmol/L Potassium (3.5-5.1) mmol/L Chloride (98-107) mmol/L Carbon Dioxide (22-30) mmol/L Anion Gap mmol/L BUN (9-20) mg/dL Creatinine (0.66-1.25) mg/dL Est GFR (CKD-EPI)AfAm (>60 ml/min/1.73 sqM) Est GFR (CKD-EPI)NonAf (>60 ml/min/1.73 sqM) Glucose (74-99) mg/dL Plasma Lactic Acid Manoj (0.7-2.0) mmol/L Calcium (8.4-10.2) mg/dL Total Bilirubin (0.2-1.3) mg/dL AST (17-59) U/L ALT (21-72) U/L Alkaline Phosphatase (38-126) U/L Total Creatine Kinase 69 (55-170) U/L CK-MB (CK-2) 1.7 (0.0-2.4) ng/mL CK-MB (CK-2) Rel Index 2.5 Troponin I <0.012 (0.000-0.034) ng/mL Total Protein (6.3-8.2) g/dL Albumin (3.5-5.0) g/dL Acetone, Qual Negative (Negative) Blood Type Blood Type Confirm Blood Type Recheck Antibody Screen Spec Expiration Date 08/08/17 08/08/17 08/08/17 Range/Units 00:29 00:29 00:29 WBC (3.8-10.6) k/uL RBC (4.30-5.90) m/uL Hgb (13.0-17.5) gm/dL Hct (39.0-53.0) % MCV (80.0-100.0) fL MCH (25.0-35.0) pg MCHC (31.0-37.0) g/dL RDW (11.5-15.5) % Plt Count (150-450) k/uL Neutrophils % % Lymphocytes % % Monocytes % % Eosinophils % % Basophils % % Neutrophils # (1.3-7.7) k/uL Lymphocytes # (1.0-4.8) k/uL Monocytes # (0-1.0) k/uL Eosinophils # (0-0.7) k/uL Basophils # (0-0.2) k/uL PT 11.8 (9.0-12.0) sec INR 1.2 H (<1.2) APTT 23.3 (22.0-30.0) sec Sodium 140 (137-145) mmol/L Potassium 3.8 (3.5-5.1) mmol/L Chloride 98 (98-107) mmol/L Carbon Dioxide 25 (22-30) mmol/L Anion Gap 17 mmol/L BUN 16 (9-20) mg/dL Creatinine 0.70 (0.66-1.25) mg/dL Est GFR (CKD-EPI)AfAm >90 (>60 ml/min/1.73 sqM) Est GFR (CKD-EPI)NonAf >90 (>60 ml/min/1.73 sqM) Glucose 214 H (74-99) mg/dL Plasma Lactic Acid Manoj 1.6 (0.7-2.0) mmol/L Calcium 9.8 (8.4-10.2) mg/dL Total Bilirubin 1.1 (0.2-1.3) mg/dL AST 20 (17-59) U/L ALT 31 (21-72) U/L Alkaline Phosphatase 160 H (38-126) U/L Total Creatine Kinase (55-170) U/L CK-MB (CK-2) (0.0-2.4) ng/mL CK-MB (CK-2) Rel Index Troponin I (0.000-0.034) ng/mL Total Protein 7.6 (6.3-8.2) g/dL Albumin 4.6 (3.5-5.0) g/dL Acetone, Qual (Negative) Blood Type Blood Type Confirm Blood Type Recheck Antibody Screen Spec Expiration Date 08/08/17 08/08/17 Range/Units 00:29 02:22 WBC (3.8-10.6) k/uL RBC (4.30-5.90) m/uL Hgb (13.0-17.5) gm/dL Hct (39.0-53.0) % MCV (80.0-100.0) fL MCH (25.0-35.0) pg MCHC (31.0-37.0) g/dL RDW (11.5-15.5) % Plt Count (150-450) k/uL Neutrophils % % Lymphocytes % % Monocytes % % Eosinophils % % Basophils % % Neutrophils # (1.3-7.7) k/uL Lymphocytes # (1.0-4.8) k/uL Monocytes # (0-1.0) k/uL Eosinophils # (0-0.7) k/uL Basophils # (0-0.2) k/uL PT (9.0-12.0) sec INR (<1.2) APTT (22.0-30.0) sec Sodium (137-145) mmol/L Potassium (3.5-5.1) mmol/L Chloride (98-107) mmol/L Carbon Dioxide (22-30) mmol/L Anion Gap mmol/L BUN (9-20) mg/dL Creatinine (0.66-1.25) mg/dL Est GFR (CKD-EPI)AfAm (>60 ml/min/1.73 sqM) Est GFR (CKD-EPI)NonAf (>60 ml/min/1.73 sqM) Glucose (74-99) mg/dL Plasma Lactic Acid Manoj (0.7-2.0) mmol/L Calcium (8.4-10.2) mg/dL Total Bilirubin (0.2-1.3) mg/dL AST (17-59) U/L ALT (21-72) U/L Alkaline Phosphatase (38-126) U/L Total Creatine Kinase (55-170) U/L CK-MB (CK-2) (0.0-2.4) ng/mL CK-MB (CK-2) Rel Index Troponin I (0.000-0.034) ng/mL Total Protein (6.3-8.2) g/dL Albumin (3.5-5.0) g/dL Acetone, Qual (Negative) Blood Type B Negative Blood Type Confirm B Negative Blood Type Recheck CABO Indicated Antibody Screen NEGATIVE Spec Expiration Date 08/11/2017 - 0614 - EKG Data -: EKG Interpreted by Sd EKG shows normal: sinus rhythm, intervals (Normal), ST-T waves (Normal) Rate: normal (Rate 69 bpm) Disposition Clinical Impression: Upper gastrointestinal bleeding, Gastroparesis Disposition: ADMITTED IP TO THIS [facility] Condition: Fair Is patient prescribed a controlled substance at d/c from ED?: No
[2017-08-08 00:42] LABS: Basophils % (A) 0 %; Eosinophils # (A) 0.1 k/uL (0-0.7); Eosinophils % (A) 1 %; HCT 43.4 % (39.0-53.0); Lymphocytes # (A) 1.3 k/uL (1.0-4.8); Lymphocytes % (A) 10 %; MCH 29.3 pg (25.0-35.0); MCHC 34.6 g/dL (31.0-37.0); MCV 84.8 fL (80.0-100.0); Monocytes # (A) 0.5 k/uL (0-1.0); Monocytes % (A) 4 %; Neutrophils # (A) 11.7 k/uL (1.3-7.7); Neutrophils % (A) 85 %; Platelet Count 294 k/uL (150-450); RBC 5.12 m/uL (4.30-5.90); RDW 14.1 % (11.5-15.5); WBC 13.7 k/uL (3.8-10.6)
[2017-08-08 00:49] LABS: INR 1.2 (<1.2); Partial Thromboplastin Time 23.3 sec (22.0-30.0); Prothrombin Time 11.8 sec (9.0-12.0)
[2017-08-08 00:55] LABS: ALT 31 U/L (21-72); AST 20 U/L (17-59); Albumin 4.6 g/dL (3.5-5.0); Alkaline Phosphatase 160 U/L (38-126); Anion Gap 17 mmol/L; Blood Urea Nitrogen 16 mg/dL (9-20); Calcium 9.8 mg/dL (8.4-10.2); Carbon Dioxide 25 mmol/L (22-30); Chloride 98 mmol/L (98-107); Glucose 214 mg/dL (74-99); Potassium 3.8 mmol/L (3.5-5.1); Sodium 140 mmol/L (137-145); Total Bilirubin 1.1 mg/dL (0.2-1.3); Total Protein 7.6 g/dL (6.3-8.2)
[2017-08-08 01:03] LABS: Creatine Kinase 69 U/L (55-170)
[2017-08-08 01:16] LABS: Creatine Kinase MB 1.7 ng/mL (0.0-2.4); Troponin I <0.012 ng/mL (0.000-0.034)
[2017-08-08] MEDS ORDERED: INSULIN REGULAR 100 UNIT/ML VIAL SQ STA (01:39)
[2017-08-08] MEDS ORDERED: METOCLOPRAMIDE 5 MG/ML 2 ML VIAL IVP STA ×2 (01:40→03:46)
[2017-08-08 01:58] VITALS: RESP 18
[2017-08-08] MEDS ORDERED: FAMOTIDINE 20 MG/2 ML VIAL IV STA (03:46)
[2017-08-08] MEDS ORDERED: ACETAMINOPHEN TAB 325 MG TAB PO PRN (04:50)
[2017-08-08] MEDS ORDERED: NALOXONE 0.4 MG/ML 1 ML VIAL IV PRN (04:50)
[2017-08-08] MEDS ORDERED: ONDANSETRON 4 MG/2 ML VIAL IVP PRN (04:50)
[2017-08-08] MEDS ORDERED: diphenhydrAMINE 25 MG CAP PO PRN (04:53)
[2017-08-08 07:01] VITALS: BMI 25.1
[2017-08-08 07:01] LABS: Glucose,Whole Blood 174 mg/dL (75-99)
[2017-08-08] MEDS: INSULIN ASPART 100 UNIT/ML 1 ML 10 ML VIAL SQ SCH ×3 (08:27→17:22)
[2017-08-08] MEDS: SODIUM CHLORIDE 0.9% 1,000 ML IV SCH ×2 (08:27→13:29)
[2017-08-08] MEDS: METOCLOPRAMIDE 10 MG TAB PO SCH ×2 (08:27→17:22)
[2017-08-08] MEDS ORDERED: PANTOPRAZOLE 40 MG/10 ML VIAL IV SCH (09:00)
[2017-08-08] MEDS ORDERED: FAMOTIDINE 20 MG TAB PO SCH (09:00)
[2017-08-08 11:59] LABS: Glucose,Whole Blood 153 mg/dL (75-99)
[2017-08-08] MEDS ORDERED: cloNIDine HCL 0.1 MG TAB PO PRN (12:10)
[2017-08-08 16:32] VITALS: BP 146/85; PULSE 78; TEMP 98.5
[2017-08-08 17:01] LABS: Glucose,Whole Blood 213 mg/dL (75-99)
--- NOTE | 2017-08-09 00:14 | P.HPIM ---
History of Present Illness H&P Date: 08/08/17 Chief Complaint: Nausea and vomiting Patient is a 37-year-old male with a known history of diabetes type 2, diabetic gastroparesis came to ER with complaints of nausea vomiting and epigastric pain along with some coffee-ground emesis. Patient does have a history of diabetic gastroparesis and had tested positive during November 2016 in the gastric emptying study. Patient otherwise denied any chest pain or shortness of breath. No headache or dizziness or lightheadedness. Patient has been having symptoms for the past 1-2 days. Patient does take Reglan at home. Symptoms did not get improved at home and patient came to ER for further evaluation. Currently patient is on IV fluids and antiemetics as well as pain medications. Currently patient denied any hematemesis or melena. Review of Systems Constitutional: Patient denies any fever or chills . No generalized weakness or weight loss. Abdomen: Nausea vomiting abdominal pain and unable to keep down food. Cardiovascular: Patient denies any chest pain or short of breath no palpitations. Respiratory: patient denied any cough is from production. No shortness of breath Neurologic: Patient denied any numbness or tingling headache. Musculoskeletal: Patient denies any complaints of joint swelling or deformity. Skin: Negative Psychiatric: Negative Endocrine: No heat or cold intolerance. No recent weight gain. Genitourinary: No dysuria or hematuria. All other 14 point ROS negative except the above Past Medical History Past Medical History: Diabetes Mellitus Additional Past Medical History / Comment(s): bleeding ulcers, gastroparesis History of Any Multi-Drug Resistant Organisms: MRSA Date of last positivie culture/infection: December 2012 MDRO Source:: left arm Additional Past Surgical History / Comment(s): left arm surgery with skin graft Past Anesthesia/Blood Transfusion Reactions: No Reported Reaction Past Psychological History: No Psychological Hx Reported Smoking Status: Current every day smoker Past Alcohol Use History: Occasional Past Drug Use History: Marijuana - Past Family History Mother Family Medical History: Cancer Additional Family Medical History / Comment(s): skin ca Medications and Allergies Home Medications Medication Instructions Recorded Confirmed Type Ondansetron [Zofran] 4 mg PO BID 12/18/16 08/08/17 History Pantoprazole Sodium 40 mg PO DAILY 12/18/16 08/08/17 History metFORMIN HCL [Glucophage] 500 mg PO BID 12/18/16 08/08/17 History Metoclopramide [Reglan] 10 mg PO TID #12 tab 02/20/17 08/08/17 Rx Allergies Allergy/AdvReac Type Severity Reaction Status Date / Time hydromorphone [From Dilaudid] AdvReac Nausea & Verified 08/08/17 12:33 Vomiting morphine AdvReac Nausea & Verified 08/08/17 12:33 Vomiting Physical Exam Vitals: Vital Signs Temp Pulse Pulse Resp BP BP Pulse Ox 08/08/17 12:00 18 08/08/17 06:50 97.9 F 56 L 18 178/91 96 08/08/17 06:24 98.7 F 69 18 157/93 100 08/08/17 04:33 82 18 161/94 100 08/08/17 03:07 98.3 F 75 18 157/95 99 08/08/17 01:57 65 18 154/100 100 08/08/17 00:20 98.6 F 98 20 183/97 98 Intake and Output 08/07/17 08/08/17 08/08/17 22:59 06:59 14:59 Intake Total 350 Balance 350 Intake: Oral 350 Other: Voiding Method Toilet Weight 72.5 kg PHYSICAL EXAMINATION: Patient is lying in the bed comfortably, no acute distress, awake alert and oriented.. HEENT: Normocephalic. Neck is supple. Pupils reactive. Nostrils clear. Oral cavity is moist. Ears reveal no drainage. Neck reveals no JVD, carotid bruits, or thyromegaly. CHEST EXAMINATION: Trachea is central. Symmetrical expansion. Lung brown clear to auscultation and percussion. CARDIAC: Normal S1, S2 with no gallops. No murmurs ABDOMEN: Soft. Bowel sounds normal. No organomegaly. No abdominal bruits. Extremities: reveal no edema. No clubbing or cyanosis Neurologically awake, alert, oriented x3 with well-coordinated movements. No focal deficits noted Skin: No rash or skin lesions. Psychiatric: Coperative. Nonsuicidal Musculoskeletal: No joint swelling or deformity. Normal range of motion. Results CBC & Chem 7: 08/08/17 00:29 08/08/17 00:29 Labs: Abnormal Lab Results - Last 24 Hours (Table) 08/08/17 08/08/17 08/08/17 Range/Units 00:29 00:29 00:29 WBC 13.7 H (3.8-10.6) k/uL Neutrophils # 11.7 H (1.3-7.7) k/uL INR 1.2 H (<1.2) Glucose 214 H (74-99) mg/dL POC Glucose (mg/dL) (75-99) mg/dL Alkaline Phosphatase 160 H (38-126) U/L 08/08/17 08/08/17 Range/Units 06:59 11:55 WBC (3.8-10.6) k/uL Neutrophils # (1.3-7.7) k/uL INR (<1.2) Glucose (74-99) mg/dL POC Glucose (mg/dL) 174 H 153 H (75-99) mg/dL Alkaline Phosphatase (38-126) U/L Thrombosis Risk Factor Assmnt - DVT/VTE Prophylaxis DVT/VTE Prophylaxis: Pharmacologic Prophylaxis ordered - Choose All That Apply Any of the Below Risk Factors Present?: No Assessment and Plan Assessment: Intractable nausea vomiting and abdominal pain likely due to acute gastritis and due to underlying gastroparesis Diabetes type 2 Diabetic gastroparesis History of gastric ulcer Current every day smoker Medications and marijuana use plan: Patient be continued on IV hydration and antiemetics intravenously. Continue with the Pepcid twice a day IV and follow closely. Gastroenterology has been consulted. We will continue the current management and further recommendations based on the clinical course. Time with Patient: Greater than 30
--- NOTE | 2017-08-09 00:16 | P.DS ---
Providers Date of admission: 08/08/17 04:54 Expected date of discharge: 08/08/17 Attending physician: Iban Jamison Consults: 08/08/17 04:51 Consult Physician Routine Consulting Provider: Vincent Carrillo Consult Reason/Comments: GI Bleeding Do you want consulting provider notified?: Yes Primary care physician: Naz Oliva Hospital Course: Discharge diagnosis Intractable nausea vomiting and abdominal pain likely due to acute gastritis and due to underlying gastroparesis Diabetes type 2 Diabetic gastroparesis History of gastric ulcer Current every day smoker Medications and marijuana use Hospital course. Patient is a 37-year-old male with a known history of diabetes type 2, diabetic gastroparesis came to ER with complaints of nausea vomiting and epigastric pain along with some coffee-ground emesis. Patient does have a history of diabetic gastroparesis and had tested positive during November 2016 in the gastric emptying study. Patient otherwise denied any chest pain or shortness of breath. No headache or dizziness or lightheadedness. Patient has been having symptoms for the past 1-2 days. Patient does take Reglan at home. Symptoms did not get improved at home and patient came to ER for further evaluation. Currently patient is on IV fluids and antiemetics as well as pain medications. Currently patient denied any hematemesis or melena. Patient be continued on IV hydration and antiemetics intravenously. Continued with the Pepcid twice a day IV and follow closely. Gastroenterology has been consulted. Patient did improve symptomatically and was started on liquid diet and advance as tolerated. Otherwise patient will be continued on PPI daily at home. Otherwise patient did improve symptomatically and stable to be discharged home. Discharge physical examination was done and vitals reviewed. Patient Condition at Discharge: Fair Plan - Discharge Summary Discharge Rx Participant: No New Discharge Prescriptions: Continue metFORMIN HCL [Glucophage] 500 mg PO BID Pantoprazole Sodium 40 mg PO DAILY Ondansetron [Zofran] 4 mg PO BID Metoclopramide [Reglan] 10 mg PO TID #12 tab Discharge Medication List Ondansetron [Zofran] 4 mg PO BID 12/18/16 [History] Pantoprazole Sodium 40 mg PO DAILY 12/18/16 [History] metFORMIN HCL [Glucophage] 500 mg PO BID 12/18/16 [History] Metoclopramide [Reglan] 10 mg PO TID #12 tab 02/20/17 [Rx] Follow up Appointment(s)/Referral(s): Vincent Carrillo MD [STAFF PHYSICIAN] - 1 Week Naz Oliva DO [Primary Care Provider] - 1-2 days Patient Instructions/Handouts: Gastrointestinal Bleeding (ED), Gastroparesis ( ED) Discharge Disposition: HOME SELF-CARE
[2017-08-09 12:46] LABS: Hemoglobin A1C 6.1 % (4.0-6.0)
== END 2017-08-08 20:46 | disposition home or self-care (01) ==
LOC: EC 00:04 → 3OBS 04:54
PROVIDERS: ADMIT Hospitalist; ATTEND Hospitalist
DX: R11.2 Nausea with vomiting, unspecified (principal); R10.9 Unspecified abdominal pain; K31.84 Gastroparesis; K29.00 Acute gastritis without bleeding; E11.43 Type 2 diabetes mellitus with diabetic autonomic (poly)neuropathy; Z87.11 Personal history of peptic ulcer disease; F17.200 Nicotine dependence, unspecified, uncomplicated; F12.90 Cannabis use, unspecified, uncomplicated; Z79.84 Long term (current) use of oral hypoglycemic drugs; Z79.899 Other long term (current) drug therapy; Z88.5 Allergy status to narcotic agent; Z86.14 Personal history of Methicillin resistant Staphylococcus aureus infection; Z80.8 Family history of malignant neoplasm of other organs or systems
CPT/HCPCS: 99285 ×2; 96374 ×2; 96361 ×4; 96375 ×4; 96376; 36415; 93005; 86900; 86901; 80053; 82550; 82553; 82009; 83605; 84484; 85025; 85610; 85730; 86850; 83036; G0378; J2765; J2405; C9113

== ENCOUNTER 2018-02-15 21:43 | Emergency (ER) | payer OTHER ==
[2018-02-15 21:49] VITALS: RESP 18
[2018-02-15] MEDS ORDERED: PROMETHAZINE INJ 25 MG in SODIUM CHLORIDE 0.9% 50 ML IVPB STA (22:24)
[2018-02-15] MEDS ORDERED: ONDANSETRON 4 MG/2 ML VIAL IVP STA (22:24)
[2018-02-15] MEDS ORDERED: SODIUM CHLORIDE 0.9% 1,000 ML IV ONE (22:24)
--- NOTE | 2018-02-15 22:28 | ED ---
Abdominal Pain HPI - General Chief Complaint: Abdominal Pain Stated Complaint: High Blood Sugar Time Seen by Provider: 02/15/18 21:57 Source: patient Mode of arrival: ambulatory Limitations: no limitations - History of Present Illness Initial Comments: This patient is a 37-year-old man who presents with complaint of abdominal pain and vomiting. He states he has history of gastroparesis and this is similar to previous flareups. He indicates pain lasting most of today as well as nausea and vomiting. He indicates the pain is diffuse throughout the abdomen, cramping , moderately severe. He has not noted worsening or relieving factors. He has not been able to keep any of his medicines down. She has noted a trace of coffee-ground emesis with the last vomiting. No change in bowel movements. No change in urination. MD Complaint: abdominal pain Onset/Timin -: days(s) Location: diffuse Severity: severe Quality: cramping Consistency: constant Improves With: nothing Worsens With: nothing Associated Symptoms: nausea, vomiting - Related Data Home Medications Medication Instructions Recorded Confirmed Pantoprazole Sodium 40 mg PO DAILY 12/18/16 02/15/18 metFORMIN HCL [Glucophage] 500 mg PO BID 12/18/16 02/15/18 sitaGLIPtin [Januvia] 100 mg PO DAILY 02/15/18 02/15/18 Previous Rx's Medication Instructions Recorded Metoclopramide [Reglan] 10 mg PO TID #12 tab 02/20/17 Hydrocodone/Acetaminophen [[place] 1 each PO Q6HR PRN #10 tab 02/16/18 5-325] Promethazine [Phenergan] 25 mg PO Q6HR PRN #12 tablet 02/16/18 Allergies Allergy/AdvReac Type Severity Reaction Status Date / Time No Known Allergies Allergy Verified 02/15/18 22:44 Review of Systems ROS Statement: Those systems with pertinent positive or pertinent negative responses have been documented in the HPI. ROS Other: All systems not noted in ROS Statement are negative. Constitutional: Denies: fever, chills Respiratory: Denies: cough, dyspnea Cardiovascular: Denies: chest pain, edema, syncope Gastrointestinal: Reports: abdominal pain, nausea, vomiting, hematemesis. Denies: diarrhea, melena, hematochezia Genitourinary: Denies: dysuria, hematuria Musculoskeletal: Denies: back pain Skin: Denies: rash Neurological: Denies: headache, weakness, numbness Past Medical History Past Medical History: Diabetes Mellitus Additional Past Medical History / Comment(s): bleeding ulcers, gastroparesis History of Any Multi-Drug Resistant Organisms: MRSA Date of last positivie culture/infection: December 2012 MDRO Source:: left arm Additional Past Surgical History / Comment(s): left arm surgery with skin graft Past Anesthesia/Blood Transfusion Reactions: No Reported Reaction Past Psychological History: No Psychological Hx Reported Smoking Status: Current every day smoker Past Alcohol Use History: Occasional Past Drug Use History: Marijuana - Past Family History Mother Family Medical History: Cancer Additional Family Medical History / Comment(s): skin ca General Exam Limitations: no limitations General appearance: alert, in no apparent distress Head exam: Present: atraumatic, normocephalic Eye exam: Present: normal appearance. Absent: scleral icterus, conjunctival injection ENT exam: Present: mucous membranes dry Neck exam: Present: normal inspection Respiratory exam: Present: normal lung sounds bilaterally. Absent: respiratory distress, wheezes, rales, rhonchi, stridor Cardiovascular Exam: Present: regular rate, normal rhythm, normal heart sounds. Absent: systolic murmur, diastolic murmur, rubs, gallop GI/Abdominal exam: Present: soft, hypoactive bowel sounds. Absent: distended, tenderness, guarding, rebound, rigid, organomegaly, mass, pulsatile mass, hernia Extremities exam: Present: normal inspection, normal capillary refill. Absent: pedal edema, calf tenderness Back exam: Present: normal inspection. Absent: CVA tenderness (R), CVA tenderness (L) Neurological exam: Present: alert Skin exam: Present: warm, dry, intact, normal color. Absent: rash Course Vital Signs 02/15/18 21:47 Temperature 98.1 F Pulse Rate 87 Respiratory 18 Rate Blood Pressure 185/106 O2 Sat by Pulse 99 Oximetry Medical Decision Making - Lab Data Result diagrams: 02/15/18 22:10 02/15/18 22:10 Lab Results 02/15/18 02/15/18 02/15/18 Range/Units 22:10 22:10 22:10 WBC 13.3 H (3.8-10.6) k/uL RBC 5.48 (4.30-5.90) m/uL Hgb 15.7 (13.0-17.5) gm/dL Hct 45.8 (39.0-53.0) % MCV 83.7 (80.0-100.0) fL MCH 28.7 (25.0-35.0) pg MCHC 34.3 (31.0-37.0) g/dL RDW 14.5 (11.5-15.5) % Plt Count 220 (150-450) k/uL Neutrophils % 90 % Lymphocytes % 7 % Monocytes % 2 % Eosinophils % 0 % Basophils % 0 % Neutrophils # 11.9 H (1.3-7.7) k/uL Lymphocytes # 0.9 L (1.0-4.8) k/uL Monocytes # 0.3 (0-1.0) k/uL Eosinophils # 0.0 (0-0.7) k/uL Basophils # 0.0 (0-0.2) k/uL Sodium 140 (137-145) mmol/L Potassium 4.4 (3.5-5.1) mmol/L Chloride 104 (98-107) mmol/L Carbon Dioxide 21 L (22-30) mmol/L Anion Gap 15 mmol/L BUN 15 (9-20) mg/dL Creatinine 0.65 L (0.66-1.25) mg/dL Est GFR (CKD-EPI)AfAm >90 (>60 ml/min/1.73 sqM) Est GFR (CKD-EPI)NonAf >90 (>60 ml/min/1.73 sqM) Glucose 256 H (74-99) mg/dL Calcium 10.1 (8.4-10.2) mg/dL Total Bilirubin 1.1 (0.2-1.3) mg/dL AST 30 (17-59) U/L ALT 26 (21-72) U/L Alkaline Phosphatase 185 H (38-126) U/L Total Protein 8.5 H (6.3-8.2) g/dL Albumin 4.9 (3.5-5.0) g/dL Amylase 42 (30-110) U/L Lipase 71 (23-300) U/L Urine Color Yellow Urine Appearance Clear (Clear) Urine pH 7.0 (5.0-8.0) Ur Specific [place] 1.028 (1.001-1.035) Urine Protein 1+ H (Negative) Urine Glucose (UA) 4+ H (Negative) Urine Ketones 4+ H (Negative) Urine Blood Negative (Negative) Urine Nitrite Negative (Negative) Urine Bilirubin Negative (Negative) Urine Urobilinogen 2.0 (<2.0) mg/dL Ur Leukocyte Esterase Negative (Negative) Urine RBC 2 (0-5) /hpf Urine WBC 2 (0-5) /hpf Hyaline Casts 1 (0-2) /lpf Urine Mucus Few H (None) /hpf - EKG Data -: EKG Interpreted by Me EKG shows normal: sinus rhythm, axis (Normal), intervals (Normal), QRS complexes (Normal), ST-T waves (Normal) Rate: normal (Rate 91 bpm) Interpretation: normal EKG Disposition Clinical Impression: Gastroparesis, Intractable nausea and vomiting Disposition: HOME SELF-CARE Condition: Good Instructions: Acute Nausea and Vomiting (ED), Gastroparesis (ED) Prescriptions: Hydrocodone/Acetaminophen [[place] 5-325] 1 each PO Q6HR PRN #10 tab PRN Reason: Pain Promethazine [Phenergan] 25 mg PO Q6HR PRN #12 tablet PRN Reason: Vomiting Is patient prescribed a controlled substance at d/c from ED?: Yes When asked, does pt state using other controlled substances?: No If prescribed controlled substance>3 days was MAPS reviewed?: Prescribed <3 Days If opioid is for acute pain is fill amount 7 days or less?: Yes If Rx opioid, was Start Talking consent form obtained?: Yes Referrals: Naz Oliva DO [Primary Care Provider] - 1-2 days
[2018-02-15 22:43] LABS: Appearance,Urine Clear (Clear); Bilirubin,Urine Negative (Negative); Blood,Urine Negative (Negative); Color,Urine Yellow; Glucose,Urine (UA) 4+ (Negative); Hyaline Casts,Urine 1 /lpf (0-2); Leukocyte Esterase,Urine Negative (Negative); Mucus,Urine Few /hpf; Nitrite,Urine Negative (Negative); Protein,Urine 1+ (Negative); RBC,Urine 2 /hpf (0-5); Specific Gravity,Urine 1.028 (1.001-1.035); WBC,Urine 2 /hpf (0-5)
[2018-02-15] MEDS: MORPHINE SULFATE 4 MG/ML SYRINGE IV STA ×2 (22:44→22:50)
[2018-02-15 22:46] LABS: ALT 26 U/L (21-72); AST 30 U/L (17-59); Albumin 4.9 g/dL (3.5-5.0); Amylase 42 U/L (30-110); Anion Gap 15 mmol/L; Blood Urea Nitrogen 15 mg/dL (9-20); Calcium 10.1 mg/dL (8.4-10.2); Carbon Dioxide 21 mmol/L (22-30); Chloride 104 mmol/L (98-107); Glucose 256 mg/dL (74-99); Lipase 71 U/L (23-300); Potassium 4.4 mmol/L (3.5-5.1); Sodium 140 mmol/L (137-145); Total Bilirubin 1.1 mg/dL (0.2-1.3); Total Protein 8.5 g/dL (6.3-8.2)
[2018-02-15 22:47] LABS: Alkaline Phosphatase 185 U/L (38-126)
[2018-02-15] MEDS ORDERED: MORPHINE SULFATE 4 MG/ML SYRINGE IVP STA (22:50)
[2018-02-15 22:52] LABS: Basophils % (A) 0 %; Eosinophils % (A) 0 %; HCT 45.8 % (39.0-53.0); HGB 15.7 gm/dL (13.0-17.5); Lymphocytes # (A) 0.9 k/uL (1.0-4.8); Lymphocytes % (A) 7 %; MCH 28.7 pg (25.0-35.0); MCHC 34.3 g/dL (31.0-37.0); MCV 83.7 fL (80.0-100.0); Mean Platelet Volume 7.7; Monocytes # (A) 0.3 k/uL (0-1.0); Monocytes % (A) 2 %; Neutrophils # (A) 11.9 k/uL (1.3-7.7); Neutrophils % (A) 90 %; Platelet Count 220 k/uL (150-450); RBC 5.48 m/uL (4.30-5.90); RDW 14.5 % (11.5-15.5); WBC 13.3 k/uL (3.8-10.6)
[2018-02-15 23:02] LABS: Ketones,Urine 4+ (Negative)
[2018-02-15] MEDS ORDERED: INSULIN REGULAR 100 UNIT/ML VIAL SQ STA (23:13)
[2018-02-16] MEDS ORDERED: SODIUM CHLORIDE 0.9% 1,000 ML IV ONE (00:20)
[2018-02-16 02:30] VITALS: BP 130/92; PULSE 75; TEMP 97.6
== END 2018-02-16 02:33 | disposition home or self-care (01) ==
LOC: EC 21:43
DX: K31.84 Gastroparesis (principal); E11.65 Type 2 diabetes mellitus with hyperglycemia; F17.200 Nicotine dependence, unspecified, uncomplicated; Z86.14 Personal history of Methicillin resistant Staphylococcus aureus infection; Z79.84 Long term (current) use of oral hypoglycemic drugs; Z79.899 Other long term (current) drug therapy
CPT/HCPCS: 36415; 93005; 80053; 82150; 83690; 85025; 81001; 99284; 96365; 96375 ×2; 96361 ×2; J2270; J2550; J2405

== ENCOUNTER 2018-02-16 21:57 | Emergency (ER) | payer OTHER ==
[2018-02-16 22:24] VITALS: TEMP 98.4
[2018-02-17 01:03] LABS: Glucose,Whole Blood 210 mg/dL (75-99)
[2018-02-17] MEDS ORDERED: SODIUM CHLORIDE 0.9% 1,000 ML IV ONE (01:08)
[2018-02-17] MEDS ORDERED: SODIUM CHLORIDE 0.9% 1,000 ML IV SCH (01:15)
[2018-02-17 01:37] LABS: Basophils % (A) 0 %; Eosinophils # (A) 0.1 k/uL (0-0.7); Eosinophils % (A) 1 %; HCT 41.2 % (39.0-53.0); HGB 13.6 gm/dL (13.0-17.5); Lymphocytes # (A) 1.5 k/uL (1.0-4.8); Lymphocytes % (A) 14 %; MCH 27.7 pg (25.0-35.0); MCHC 33.1 g/dL (31.0-37.0); MCV 83.7 fL (80.0-100.0); Mean Platelet Volume 7.4; Monocytes # (A) 0.3 k/uL (0-1.0); Monocytes % (A) 3 %; Neutrophils # (A) 8.5 k/uL (1.3-7.7); Neutrophils % (A) 81 %; Platelet Count 201 k/uL (150-450); RBC 4.93 m/uL (4.30-5.90); RDW 14.9 % (11.5-15.5); WBC 10.6 k/uL (3.8-10.6)
[2018-02-17 01:45] LABS: INR 1.1 (<1.2); Prothrombin Time 11.3 sec (9.0-12.0)
[2018-02-17 01:47] LABS: ALT 35 U/L (21-72); AST 23 U/L (17-59); Alkaline Phosphatase 130 U/L (38-126); Amylase <30 U/L (30-110); Anion Gap 11 mmol/L; Blood Urea Nitrogen 14 mg/dL (9-20); Carbon Dioxide 24 mmol/L (22-30); Chloride 105 mmol/L (98-107); Glucose 199 mg/dL (74-99); Lipase 37 U/L (23-300); Sodium 140 mmol/L (137-145); Total Bilirubin 0.8 mg/dL (0.2-1.3); Total Protein 6.9 g/dL (6.3-8.2)
[2018-02-17] MEDS ORDERED: diphenhydrAMINE 50 MG/ML 1 ML VIAL IVP STA (01:50)
[2018-02-17] MEDS ORDERED: KETOROLAC 30 MG/ML 1 ML VIAL IVP STA (01:50)
[2018-02-17] MEDS ORDERED: METOCLOPRAMIDE 5 MG/ML 2 ML VIAL IVP STA (01:50)
--- NOTE | 2018-02-17 02:38 | ED ---
Abdominal Pain HPI - General Chief Complaint: Abdominal Pain Stated Complaint: revist, high blood sugar, lots of pain Time Seen by Provider: 02/17/18 01:08 Source: patient, RN notes reviewed, old records reviewed Mode of arrival: ambulatory Limitations: no limitations - History of Present Illness Initial Comments: Patient is a 37-year-old male presents for his rosacea complaint of vomiting and diffuse lower abdominal pain. Patient ports with history of gastroparesis reports having a flareup. Patient which is a little burn pain today. He was seen in the emergency department yesterday. Discharged with pain medication and nausea medicine. Patient states he is had dry heaves. Patient reports it' s of mild bloody emesis. Patient reports he has followed with Dr. Bowling the past. He denies any fevers or chills. He reports that he'll have no pain but that when he starts to have bowel movement and passes a stool he will have the severe crippling abdominal pain. - Related Data Home Medications Medication Instructions Recorded Confirmed Pantoprazole Sodium 40 mg PO DAILY 12/18/16 02/15/18 metFORMIN HCL [Glucophage] 500 mg PO BID 12/18/16 02/15/18 sitaGLIPtin [Januvia] 100 mg PO DAILY 02/15/18 02/15/18 Previous Rx's Medication Instructions Recorded Metoclopramide [Reglan] 10 mg PO TID #12 tab 02/20/17 Hydrocodone/Acetaminophen [[place] 1 each PO Q6HR PRN #10 tab 02/16/18 5-325] Promethazine [Phenergan] 25 mg PO Q6HR PRN #12 tablet 02/16/18 Metoclopramide [Reglan] 10 mg PO TID #20 tab 02/17/18 Allergies Allergy/AdvReac Type Severity Reaction Status Date / Time No Known Allergies Allergy Verified 02/15/18 22:44 Review of Systems ROS Statement: Those systems with pertinent positive or pertinent negative responses have been documented in the HPI. ROS Other: All systems not noted in ROS Statement are negative. Past Medical History Past Medical History: Diabetes Mellitus Additional Past Medical History / Comment(s): bleeding ulcers, gastroparesis History of Any Multi-Drug Resistant Organisms: MRSA Date of last positivie culture/infection: December 2012 MDRO Source:: left arm Additional Past Surgical History / Comment(s): left arm surgery with skin graft Past Anesthesia/Blood Transfusion Reactions: No Reported Reaction Past Psychological History: No Psychological Hx Reported Smoking Status: Current every day smoker Past Alcohol Use History: Occasional Past Drug Use History: Marijuana - Past Family History Mother Family Medical History: Cancer Additional Family Medical History / Comment(s): skin ca General Exam - General Exam Comments Initial Comments: 37-year-old male. Alert and oriented. No distress. Limitations: no limitations General appearance: alert, in no apparent distress Head exam: Present: atraumatic, normocephalic, normal inspection Eye exam: Present: normal appearance, PERRL, EOMI. Absent: scleral icterus, conjunctival injection, periorbital swelling ENT exam: Present: normal exam, normal oropharynx, mucous membranes moist Neck exam: Present: normal inspection. Absent: tenderness, meningismus, lymphadenopathy Respiratory exam: Present: normal lung sounds bilaterally Cardiovascular Exam: Present: regular rate, normal rhythm, normal heart sounds. Absent: systolic murmur, diastolic murmur, rubs, gallop, clicks GI/Abdominal exam: Present: soft, normal bowel sounds. Absent: distended, tenderness, guarding, rebound, rigid Extremities exam: Present: normal inspection, full ROM, normal capillary refill. Absent: tenderness, pedal edema, joint swelling, calf tenderness Back exam: Present: normal inspection Neurological exam: Present: alert, oriented X3, CN II-XII intact Psychiatric exam: Present: normal affect, normal mood Skin exam: Present: warm, dry, intact, normal color. Absent: rash Course Vital Signs 02/16/18 02/17/18 22:21 03:24 Temperature 98.4 F Pulse Rate 90 86 Respiratory 20 18 Rate Blood Pressure 130/94 133/81 O2 Sat by Pulse 100 97 Oximetry Medical Decision Making - Medical Decision Making Patient is a 37-year-old male presents for his rosacea complaint of vomiting and diffuse lower abdominal pain. Patient ports with history of gastroparesis reports having a flareup. Patient which is a little burn pain today. He was seen in the emergency department yesterday. Patient is resting comfortably in bed, in no distress. No vomiting in ED. BS was mildly elevated 210. Patient given IV fluids, labs obtained. HE has no focal abdominal tenderness. Patient labs are normal. DC with Rx for reglan for nausea. Return parameters and follow up with PCP discussed. Given referral for Dr. Rosales for chronic gastroparesis. - Lab Data Result diagrams: 02/17/18 01:24 02/17/18 01:24 Lab Results 02/17/18 02/17/18 02/17/18 Range/Units 01:00 01:24 01:24 WBC 10.6 (3.8-10.6) k/uL RBC 4.93 (4.30-5.90) m/uL Hgb 13.6 (13.0-17.5) gm/dL Hct 41.2 (39.0-53.0) % MCV 83.7 (80.0-100.0) fL MCH 27.7 (25.0-35.0) pg MCHC 33.1 (31.0-37.0) g/dL RDW 14.9 (11.5-15.5) % Plt Count 201 (150-450) k/uL Neutrophils % 81 % Lymphocytes % 14 % Monocytes % 3 % Eosinophils % 1 % Basophils % 0 % Neutrophils # 8.5 H (1.3-7.7) k/uL Lymphocytes # 1.5 (1.0-4.8) k/uL Monocytes # 0.3 (0-1.0) k/uL Eosinophils # 0.1 (0-0.7) k/uL Basophils # 0.0 (0-0.2) k/uL PT (9.0-12.0) sec INR (<1.2) APTT (22.0-30.0) sec Sodium 140 (137-145) mmol/L Potassium 4.0 (3.5-5.1) mmol/L Chloride 105 (98-107) mmol/L Carbon Dioxide 24 (22-30) mmol/L Anion Gap 11 mmol/L BUN 14 (9-20) mg/dL Creatinine 0.63 L (0.66-1.25) mg/dL Est GFR (CKD-EPI)AfAm >90 (>60 ml/min/1.73 sqM) Est GFR (CKD-EPI)NonAf >90 (>60 ml/min/1.73 sqM) Glucose 199 H (74-99) mg/dL POC Glucose (mg/dL) 210 H (75-99) mg/dL POC Glu Parakeet Raiser ID Biewer, Brianna Calcium 9.0 (8.4-10.2) mg/dL Total Bilirubin 0.8 (0.2-1.3) mg/dL AST 23 (17-59) U/L ALT 35 (21-72) U/L Alkaline Phosphatase 130 H (38-126) U/L Total Protein 6.9 (6.3-8.2) g/dL Albumin 4.0 (3.5-5.0) g/dL Amylase <30 L (30-110) U/L Lipase 37 (23-300) U/L 02/17/18 Range/Units 01:24 WBC (3.8-10.6) k/uL RBC (4.30-5.90) m/uL Hgb (13.0-17.5) gm/dL Hct (39.0-53.0) % MCV (80.0-100.0) fL MCH (25.0-35.0) pg MCHC (31.0-37.0) g/dL RDW (11.5-15.5) % Plt Count (150-450) k/uL Neutrophils % % Lymphocytes % % Monocytes % % Eosinophils % % Basophils % % Neutrophils # (1.3-7.7) k/uL Lymphocytes # (1.0-4.8) k/uL Monocytes # (0-1.0) k/uL Eosinophils # (0-0.7) k/uL Basophils # (0-0.2) k/uL PT 11.3 (9.0-12.0) sec INR 1.1 (<1.2) APTT 26.0 (22.0-30.0) sec Sodium (137-145) mmol/L Potassium (3.5-5.1) mmol/L Chloride (98-107) mmol/L Carbon Dioxide (22-30) mmol/L Anion Gap mmol/L BUN (9-20) mg/dL Creatinine (0.66-1.25) mg/dL Est GFR (CKD-EPI)AfAm (>60 ml/min/1.73 sqM) Est GFR (CKD-EPI)NonAf (>60 ml/min/1.73 sqM) Glucose (74-99) mg/dL POC Glucose (mg/dL) (75-99) mg/dL POC Glu Parakeet Raiser ID Calcium (8.4-10.2) mg/dL Total Bilirubin (0.2-1.3) mg/dL AST (17-59) U/L ALT (21-72) U/L Alkaline Phosphatase (38-126) U/L Total Protein (6.3-8.2) g/dL Albumin (3.5-5.0) g/dL Amylase (30-110) U/L Lipase (23-300) U/L Disposition Clinical Impression: Gastroparesis, Intractable nausea and vomiting Disposition: HOME SELF-CARE Condition: Good Instructions: Gastroparesis (ED) Additional Instructions: Patient advised to follow-up with PCP and GI doctor. Return to emergency department if any alarming signs or symptoms occur. Prescriptions: Metoclopramide [Reglan] 10 mg PO TID #20 tab Is patient prescribed a controlled substance at d/c from ED?: No Referrals: Naz Oliva DO [Primary Care Provider] - 1-2 days Zakiya Rosales MD [STAFF PHYSICIAN] - 1-2 days Time of Disposition: 03:09
[2018-02-17 03:24] VITALS: BP 133/81; PULSE 86; RESP 18
== END 2018-02-17 03:25 | disposition home or self-care (01) ==
LOC: EC 21:57
DX: K31.84 Gastroparesis (principal); E11.9 Type 2 diabetes mellitus without complications; F17.200 Nicotine dependence, unspecified, uncomplicated; Z86.14 Personal history of Methicillin resistant Staphylococcus aureus infection; Z79.84 Long term (current) use of oral hypoglycemic drugs; Z79.899 Other long term (current) drug therapy
CPT/HCPCS: 36415; 80053; 82150; 83690; 85025; 85610; 85730; 99284; 96374; 96375 ×2; 96361 ×2; J1200; J2765; J1885

== ENCOUNTER 2018-03-17 18:57 | Observation (INO) | payer OTHER ==
[2018-03-17] MEDS ORDERED: PANTOPRAZOLE 40 MG/10 ML VIAL IVP STA (19:24)
[2018-03-17] MEDS ORDERED: HYDROmorphone 0.5 MG/0.5 ML SYRINGE IVP STA ×2 (19:24→22:46)
[2018-03-17] MEDS ORDERED: SODIUM CHLORIDE 0.9% 1,000 ML IV STA (19:24)
[2018-03-17] MEDS ORDERED: ONDANSETRON 4 MG/2 ML VIAL IVP STA ×2 (19:24→20:34)
[2018-03-17 20:16] LABS: Appearance,Urine Clear (Clear); Basophils % (A) 0 %; Bilirubin,Urine Negative (Negative); Blood,Urine Negative (Negative); Color,Urine Yellow; Eosinophils # (A) 0.1 k/uL (0-0.7); Eosinophils % (A) 1 %; Glucose,Urine (UA) 2+ (Negative); HCT 43.1 % (39.0-53.0); HGB 14.2 gm/dL (13.0-17.5); Leukocyte Esterase,Urine Negative (Negative); Lymphocytes # (A) 0.9 k/uL (1.0-4.8); Lymphocytes % (A) 5 %; MCH 27.7 pg (25.0-35.0); MCHC 32.9 g/dL (31.0-37.0); MCV 84.3 fL (80.0-100.0); Mean Platelet Volume 7.4; Monocytes # (A) 0.4 k/uL (0-1.0); Monocytes % (A) 2 %; Neutrophils # (A) 15.6 k/uL (1.3-7.7); Neutrophils % (A) 92 %; Nitrite,Urine Negative (Negative); PH, Urine 6.5 (5.0-8.0); Platelet Count 246 k/uL (150-450); Protein,Urine Trace (Negative); RBC 5.12 m/uL (4.30-5.90); RDW 14.4 % (11.5-15.5); Specific Gravity,Urine 1.021 (1.001-1.035); Urobilinogen,Urine <2.0 mg/dL (<2.0)
[2018-03-17 20:26] LABS: ALT 53 U/L (21-72); AST 27 U/L (17-59); Albumin 4.3 g/dL (3.5-5.0); Alkaline Phosphatase 226 U/L (38-126); Amylase 35 U/L (30-110); Anion Gap 11 mmol/L; Blood Urea Nitrogen 12 mg/dL (9-20); Calcium 9.6 mg/dL (8.4-10.2); Carbon Dioxide 25 mmol/L (22-30); Chloride 104 mmol/L (98-107); Glucose 210 mg/dL (74-99); Ketones,Urine 4+ (Negative); Lipase 77 U/L (23-300); Potassium 3.8 mmol/L (3.5-5.1); Sodium 140 mmol/L (137-145); Total Bilirubin 1.1 mg/dL (0.2-1.3); Total Protein 7.4 g/dL (6.3-8.2)
[2018-03-17] MEDS ORDERED: SODIUM CHLORIDE 0.9% 1,000 ML IV ONE (20:27)
[2018-03-17 20:30] LABS: INR 1.1 (<1.2); Partial Thromboplastin Time 23.6 sec (22.0-30.0); Prothrombin Time 11.4 sec (9.0-12.0)
[2018-03-17] MEDS ORDERED: HYDROmorphone 1 MG/ML 1 ML SYRINGE IVP STA (20:34)
--- NOTE | 2018-03-17 20:50 | ED ---
General Adult HPI - General Chief complaint: Nausea/Vomiting/Diarrhea Stated complaint: Vomiting, lower abd pain Time Seen by Provider: 03/17/18 19:14 Source: patient, RN notes reviewed, old records reviewed Mode of arrival: wheelchair - History of Present Illness Initial comments: 37-year-old male, history of type 2 diabetes, recurrent episodes of abdominal pain and nausea and vomiting presenting with significant vomiting over the past 12 hours. Patient does report lower abdominal pain which is chronic. He was evaluated and had colonoscopy earlier today. Denies upper abdominal pain. Denies fever or chills. Denies diarrhea. Symptoms are consistent with previous episodes of abdominal pain nausea vomiting. Patient does report coffee -ground emesis, concern for bleeding. He is not on any anticoagulation. - Related Data Home Medications Medication Instructions Recorded Confirmed sitaGLIPtin [Januvia] 100 mg PO DAILY 02/15/18 03/17/18 Dicyclomine [Bentyl] 20 mg PO QID 03/17/18 03/17/18 Glimepiride [Amaryl] 2 mg PO AC-BRKFST 03/17/18 03/17/18 HYDROcodone/APAP 7.5-325MG [[place] 1 tab PO TID PRN 03/17/18 03/17/18 7.5-325] Promethazine [Phenergan] 25 mg PO QID PRN 03/17/18 03/17/18 Previous Rx's Medication Instructions Recorded Metoclopramide [Reglan] 10 mg PO TID #20 tab 02/17/18 Allergies Allergy/AdvReac Type Severity Reaction Status Date / Time No Known Allergies Allergy Verified 03/17/18 20:39 Review of Systems ROS Statement: Those systems with pertinent positive or pertinent negative responses have been documented in the HPI. ROS Other: All systems not noted in ROS Statement are negative. Past Medical History Past Medical History: Diabetes Mellitus Additional Past Medical History / Comment(s): bleeding ulcers, gastroparesis History of Any Multi-Drug Resistant Organisms: MRSA Date of last positivie culture/infection: December 2012 MDRO Source:: left arm Additional Past Surgical History / Comment(s): left arm surgery with skin graft Past Anesthesia/Blood Transfusion Reactions: No Reported Reaction Past Psychological History: No Psychological Hx Reported Smoking Status: Current every day smoker Past Alcohol Use History: Occasional Past Drug Use History: Marijuana - Past Family History Mother Family Medical History: Cancer Additional Family Medical History / Comment(s): skin ca General Exam General appearance: alert, in no apparent distress Head exam: Present: atraumatic, normocephalic Eye exam: Present: normal appearance, PERRL ENT exam: Present: mucous membranes dry Neck exam: Present: normal inspection. Absent: tenderness, meningismus Respiratory exam: Present: normal lung sounds bilaterally. Absent: respiratory distress, wheezes Cardiovascular Exam: Present: regular rate, normal rhythm GI/Abdominal exam: Present: soft, tenderness (Primarily lower abdominal tenderness). Absent: distended, guarding, rebound Extremities exam: Present: normal inspection, normal capillary refill. Absent: pedal edema Neurological exam: Present: alert, oriented X3, CN II-XII intact. Absent: motor sensory deficit Psychiatric exam: Present: normal affect, normal mood Skin exam: Present: warm, dry, intact. Absent: cyanosis, diaphoretic Course Vital Signs 03/17/18 03/17/18 03/17/18 19:03 20:01 20:48 Temperature 98 F Pulse Rate 93 73 54 L Respiratory 16 18 22 Rate Blood Pressure 173/102 143/89 166/101 O2 Sat by Pulse 98 96 98 Oximetry Medical Decision Making - Medical Decision Making 37 -year-old male history of recurrent abdominal pain and vomiting. Patient is very uncomfortable on initial evaluation, mild bilateral lower abdominal tenderness, no rebound or guarding. Vital signs are stable. Workup in the emergency department does reveal leukocytosis of 17 may be secondary to vomiting. Patient has a stable hemoglobin. His vomit is heme positive. He has normal electrolytes, urinalysis is positive for 2+ glucose and 4+ ketones consistent with dehydration. Patient is not acidotic, normal anion gap, normal CO2. CT is obtained, negative for free air. He does have a slightly enlarged appendix at 9 mm, there is no surrounding inflammatory changes, no fat stranding. I did discuss case with Dr. Posada, see the patient in consultation. We both agreed this is not acute appendicitis but will continue to monitor. Patient will be admitted for symptomatically treatment, placed on Zofran, Reglan. He is also placed on Protonix, we will repeat hemoglobin and 4 hours as well as in the morning. Case discussed with admitting physician, will accept. - Lab Data Result diagrams: 03/17/18 19:30 01/31/19 19:30 Lab Results 03/17/18 03/17/18 03/17/18 Range/Units 19:30 19:30 19:30 WBC 17.0 H (3.8-10.6) k/uL RBC 5.12 (4.30-5.90) m/uL Hgb 14.2 (13.0-17.5) gm/dL Hct 43.1 (39.0-53.0) % MCV 84.3 (80.0-100.0) fL MCH 27.7 (25.0-35.0) pg MCHC 32.9 (31.0-37.0) g/dL RDW 14.4 (11.5-15.5) % Plt Count 246 (150-450) k/uL Neutrophils % 92 % Lymphocytes % 5 % Monocytes % 2 % Eosinophils % 1 % Basophils % 0 % Neutrophils # 15.6 H (1.3-7.7) k/uL Lymphocytes # 0.9 L (1.0-4.8) k/uL Monocytes # 0.4 (0-1.0) k/uL Eosinophils # 0.1 (0-0.7) k/uL Basophils # 0.0 (0-0.2) k/uL PT (9.0-12.0) sec INR (<1.2) APTT (22.0-30.0) sec Sodium 140 (137-145) mmol/L Potassium 3.8 (3.5-5.1) mmol/L Chloride 104 (98-107) mmol/L Carbon Dioxide 25 (22-30) mmol/L Anion Gap 11 mmol/L BUN 12 (9-20) mg/dL Creatinine 0.68 (0.66-1.25) mg/dL Est GFR (CKD-EPI)AfAm >90 (>60 ml/min/1.73 sqM) Est GFR (CKD-EPI)NonAf >90 (>60 ml/min/1.73 sqM) Glucose 210 H (74-99) mg/dL Plasma Lactic Acid Manoj 1.8 (0.7-2.0) mmol/L Calcium 9.6 (8.4-10.2) mg/dL Total Bilirubin 1.1 (0.2-1.3) mg/dL AST 27 (17-59) U/L ALT 53 (21-72) U/L Alkaline Phosphatase 226 H (38-126) U/L Total Protein 7.4 (6.3-8.2) g/dL Albumin 4.3 (3.5-5.0) g/dL Amylase 35 (30-110) U/L Lipase 77 (23-300) U/L Urine Color Urine Appearance (Clear) Urine pH (5.0-8.0) Ur Specific [place] (1.001-1.035) Urine Protein (Negative) Urine Glucose (UA) (Negative) Urine Ketones (Negative) Urine Blood (Negative) Urine Nitrite (Negative) Urine Bilirubin (Negative) Urine Urobilinogen (<2.0) mg/dL Ur Leukocyte Esterase (Negative) Gastric Occult Blood (Negative) 03/17/18 03/17/18 03/17/18 Range/Units 19:30 19:30 20:30 WBC (3.8-10.6) k/uL RBC (4.30-5.90) m/uL Hgb (13.0-17.5) gm/dL Hct (39.0-53.0) % MCV (80.0-100.0) fL MCH (25.0-35.0) pg MCHC (31.0-37.0) g/dL RDW (11.5-15.5) % Plt Count (150-450) k/uL Neutrophils % % Lymphocytes % % Monocytes % % Eosinophils % % Basophils % % Neutrophils # (1.3-7.7) k/uL Lymphocytes # (1.0-4.8) k/uL Monocytes # (0-1.0) k/uL Eosinophils # (0-0.7) k/uL Basophils # (0-0.2) k/uL PT 11.4 (9.0-12.0) sec INR 1.1 (<1.2) APTT 23.6 (22.0-30.0) sec Sodium (137-145) mmol/L Potassium (3.5-5.1) mmol/L Chloride (98-107) mmol/L Carbon Dioxide (22-30) mmol/L Anion Gap mmol/L BUN (9-20) mg/dL Creatinine (0.66-1.25) mg/dL Est GFR (CKD-EPI)AfAm (>60 ml/min/1.73 sqM) Est GFR (CKD-EPI)NonAf (>60 ml/min/1.73 sqM) Glucose (74-99) mg/dL Plasma Lactic Acid Manoj (0.7-2.0) mmol/L Calcium (8.4-10.2) mg/dL Total Bilirubin (0.2-1.3) mg/dL AST (17-59) U/L ALT (21-72) U/L Alkaline Phosphatase (38-126) U/L Total Protein (6.3-8.2) g/dL Albumin (3.5-5.0) g/dL Amylase (30-110) U/L Lipase (23-300) U/L Urine Color Yellow Urine Appearance Clear (Clear) Urine pH 6.5 (5.0-8.0) Ur Specific [place] 1.021 (1.001-1.035) Urine Protein Trace H (Negative) Urine Glucose (UA) 2+ H (Negative) Urine Ketones 4+ H (Negative) Urine Blood Negative (Negative) Urine Nitrite Negative (Negative) Urine Bilirubin Negative (Negative) Urine Urobilinogen <2.0 (<2.0) mg/dL Ur Leukocyte Esterase Negative (Negative) Gastric Occult Blood Positive (Negative) Disposition Clinical Impression: Upper gastrointestinal bleeding, Abdominal pain, Intractable nausea and vomiting, Dehydration Disposition: ADMITTED IP TO THIS [facility] Condition: Stable Referrals: Naz Oliva DO [Primary Care Provider] - 1-2 days Decision to Admit Reason: Admit from EC Decision Date: 03/17/18 Decision Time: 21:40
--- NOTE | 2018-03-17 21:18 | CT ---
EXAMINATION TYPE: CT abdomen pelvis w con DATE OF EXAM: 03/17/2018 COMPARISON: 12/22/2016 HISTORY: Abdominal pain and vomiting CT DLP: 665.1 mGycm Automated exposure control for dose reduction was used. TECHNIQUE: Helical acquisition of images was performed from the lung bases through the pelvis. CONTRAST: Performed without Oral Contrast and with IV Contrast, patient injected with 100 mL of Isovue 300. FINDINGS: Lung bases are clear. There is no pleural effusion. Heart size is normal. There is no pericardial eff usion. Liver spleen pancreas gallbladder appear normal. Bile ducts are not dilated. There is no adren al mass. Kidneys show satisfactory contrast opacification. There is no hydronephrosis. There is no re troperitoneal adenopathy. Bladder distends smoothly. There is no free fluid in the pelvis. There is s ome thickening of the appendix that measures 9 to 10 mm. I see no surrounding inflammatory change. There is no inguinal hernia. There is no evidence of a bowel obstruction. There is no mesenteric abisai a. There is no ascites. There is no sign of free air. The lumbar spine is intact. IMPRESSION: APPENDIX IS SLIGHTLY THICKENED. THIS IS EQUIVOCAL FOR APPENDICITIS.
[2018-03-17] MEDS ORDERED: METOCLOPRAMIDE 5 MG/ML 2 ML VIAL IVP STA (21:21)
[2018-03-17] MEDS ORDERED: NALOXONE 0.4 MG/ML 1 ML VIAL IV PRN (21:28)
[2018-03-17] MEDS: SODIUM CHLORIDE 0.9% 1,000 ML IV SCH (22:12)
[2018-03-18] MEDS: PROMETHAZINE 25 MG TAB PO PRN ×2 (00:04→11:09)
[2018-03-18 00:15] LABS: Basophils % (A) 0 %; Eosinophils % (A) 0 %; HCT 41.9 % (39.0-53.0); HGB 13.7 gm/dL (13.0-17.5); Lymphocytes # (A) 0.9 k/uL (1.0-4.8); Lymphocytes % (A) 5 %; MCH 27.8 pg (25.0-35.0); MCHC 32.6 g/dL (31.0-37.0); MCV 85.2 fL (80.0-100.0); Mean Platelet Volume 7.5; Monocytes # (A) 0.3 k/uL (0-1.0); Monocytes % (A) 2 %; Neutrophils # (A) 16.7 k/uL (1.3-7.7); Neutrophils % (A) 93 %; Platelet Count 241 k/uL (150-450); RBC 4.92 m/uL (4.30-5.90); RDW 14.3 % (11.5-15.5)
[2018-03-18 00:32] VITALS: BMI 26.1
[2018-03-18] MEDS: AMPICILLIN-SULBACTAM 3 GM in SODIUM CHLORIDE 0.9% 100 ML IVPB SCH ×3 (02:05→15:43)
[2018-03-18] MEDS: HYDROmorphone 0.5 MG/0.5 ML SYRINGE IVP PRN ×3 (03:32→15:44)
[2018-03-18] MEDS: ONDANSETRON 4 MG/2 ML VIAL IVP PRN ×3 (03:36→22:10)
[2018-03-18] MEDS: METOCLOPRAMIDE 5 MG/ML 2 ML VIAL IVP SCH ×3 (05:10→18:01)
[2018-03-18] MEDS: SODIUM CHLORIDE 0.9% 1,000 ML IV SCH ×2 (08:15→16:29)
[2018-03-18] MEDS: PANTOPRAZOLE 40 MG/10 ML VIAL IVP SCH ×2 (08:15→21:04)
[2018-03-18] MEDS: NICOTINE 21MG/24HR PATCH TRANSDERM SCH (11:10)
[2018-03-18 12:05] LABS: ALT 43 U/L (21-72); AST 20 U/L (17-59); Albumin 4.1 g/dL (3.5-5.0); Alkaline Phosphatase 181 U/L (38-126); Anion Gap 10 mmol/L; Blood Urea Nitrogen 9 mg/dL (9-20); Calcium 9.1 mg/dL (8.4-10.2); Carbon Dioxide 24 mmol/L (22-30); Chloride 107 mmol/L (98-107); Glucose 143 mg/dL (74-99); Magnesium 1.8 mg/dL (1.6-2.3); Sodium 141 mmol/L (137-145); Total Bilirubin 0.8 mg/dL (0.2-1.3); Total Protein 6.9 g/dL (6.3-8.2)
[2018-03-18 12:21] LABS: Glucose,Whole Blood 147 mg/dL (75-99)
[2018-03-18 12:36] LABS: Basophils % (A) 0 %; Eosinophils % (A) 0 %; HCT 40.5 % (39.0-53.0); HGB 13.2 gm/dL (13.0-17.5); Lymphocytes # (A) 1.2 k/uL (1.0-4.8); Lymphocytes % (A) 8 %; MCH 27.4 pg (25.0-35.0); MCHC 32.6 g/dL (31.0-37.0); Mean Platelet Volume 7.8; Monocytes # (A) 0.7 k/uL (0-1.0); Monocytes % (A) 5 %; Neutrophils # (A) 13.2 k/uL (1.3-7.7); Neutrophils % (A) 87 %; Platelet Count 230 k/uL (150-450); RBC 4.82 m/uL (4.30-5.90); RDW 14.4 % (11.5-15.5); WBC 15.2 k/uL (3.8-10.6)
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
[2018-03-18] MEDS: INSULIN ASPART 100 UNIT/ML 1 ML 10 ML VIAL SQ SCH ×3 (13:26→21:25)
[2018-03-18 16:56] LABS: Glucose,Whole Blood 150 mg/dL (75-99)
[2018-03-18 20:43] LABS: Glucose,Whole Blood 173 mg/dL (75-99)
[2018-03-19] MEDS: METOCLOPRAMIDE 5 MG/ML 2 ML VIAL IVP SCH ×4 (01:16→17:38)
[2018-03-19] MEDS: AMPICILLIN-SULBACTAM 3 GM in SODIUM CHLORIDE 0.9% 100 ML IVPB SCH ×3 (01:16→14:51)
[2018-03-19] MEDS: SODIUM CHLORIDE 0.9% 1,000 ML IV SCH ×2 (01:17→13:39)
[2018-03-19 05:41] VITALS: RESP 16
[2018-03-19 07:07] LABS: Glucose,Whole Blood 179 mg/dL (75-99)
[2018-03-19] MEDS: PANTOPRAZOLE 40 MG/10 ML VIAL IVP SCH ×2 (08:36→22:16)
[2018-03-19] MEDS: NICOTINE 21MG/24HR PATCH TRANSDERM SCH (08:36)
[2018-03-19] MEDS: INSULIN ASPART 100 UNIT/ML 1 ML 10 ML VIAL SQ SCH ×4 (08:36→22:16)
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
[2018-03-19 11:14] LABS: ALT 39 U/L (21-72); AST 20 U/L (17-59); Albumin 3.7 g/dL (3.5-5.0); Alkaline Phosphatase 158 U/L (38-126); Anion Gap 10 mmol/L; Blood Urea Nitrogen 9 mg/dL (9-20); Calcium 8.8 mg/dL (8.4-10.2); Carbon Dioxide 26 mmol/L (22-30); Chloride 102 mmol/L (98-107); Glucose 159 mg/dL (74-99); Potassium 3.2 mmol/L (3.5-5.1); Sodium 138 mmol/L (137-145); Total Protein 6.6 g/dL (6.3-8.2)
[2018-03-19 11:43] LABS: Glucose,Whole Blood 204 mg/dL (75-99)
[2018-03-19] MEDS ORDERED: POTASSIUM CHLORIDE ER 20 MEQ TAB.ER PO STA (12:10)
[2018-03-19 12:19] LABS: Basophils % (A) 0 %; Eosinophils % (A) 0 %; HCT 39.2 % (39.0-53.0); HGB 13.2 gm/dL (13.0-17.5); Lymphocytes # (A) 1.3 k/uL (1.0-4.8); Lymphocytes % (A) 11 %; MCH 28.1 pg (25.0-35.0); MCHC 33.8 g/dL (31.0-37.0); MCV 83.2 fL (80.0-100.0); Mean Platelet Volume 7.1; Monocytes # (A) 0.6 k/uL (0-1.0); Monocytes % (A) 5 %; Neutrophils # (A) 9.5 k/uL (1.3-7.7); Neutrophils % (A) 83 %; Platelet Count 236 k/uL (150-450); RBC 4.71 m/uL (4.30-5.90); RDW 14.4 % (11.5-15.5); WBC 11.5 k/uL (3.8-10.6)
[2018-03-19] MEDS: ONDANSETRON 4 MG/2 ML VIAL IVP PRN (14:51)
[2018-03-19] MEDS: HYDROmorphone 0.5 MG/0.5 ML SYRINGE IVP PRN ×2 (14:51→22:23)
--- NOTE | 2018-03-19 16:06 | P.PN ---
Subjective Progress Note Date: 03/19/18 CHIEF COMPLAINT: Intractabel nausea and vomiting HISTORY OF PRESENT ILLNESS: The patient is a 37-year-old male who is a type 2 diabetic for 10 years poorly controlled. He denies seeing an event promoter. He goes to multiple hospital systems for treatment of intractable nausea and vomiting. Poor oral intake noted. PHYSICAL EXAM: VITAL SIGNS: Reviewed GENERAL: Well-developed in mild distress. HEENT: No sclera icterus. Extraocular movements grossly intact. Moist buccal mucosa. Head is atraumatic, normocephalic. Hears conversational speech. NECK: Supple without lymphadenopathy. CHEST: Non-labored respirations and equal bilateral excursions. CARDIOVASCULAR: Palpable 2+ radial pulses. Regular rate and regular rhythm ABDOMEN: Soft. Non-distended. No peritonitis MUSCULOSKELETAL: No clubbing, cyanosis. No edema. NEUROLOGIC: No focal or lateralizing signs. Cranial nerves II through XII grossly intact. PSYCH: Appropriate affect. Alert and oriented to person, place and time. SKIN: Well perfused. Good skin turgor. LABS: Reviewed STUDIES: Reviewed ASSESSMENT: 1. Intractable nausea and vomiting 2. Abnormal CT scan 3. Diabetic gastroparesis 4. Dehydration PLAN: 1. Recommend 2-L IV fluid bolus and decadron for nausea. 2. He does have epigastric abdominal pain, recommend NM Hepatobiliary study with EF 3. Will closely follow. 4. No surgical intervention for false CT scan reading of appendicitis Objective - Vital Signs Vital signs: Vital Signs Temp 97.9 F 03/19/18 15:00 Pulse 101 H 03/19/18 15:00 Resp 16 03/19/18 15:00 BP 165/91 03/19/18 15:00 Pulse Ox 99 03/19/18 15:00 Intake & Output 03/18/18 03/19/18 03/19/18 18:59 06:59 18:59 Intake Total 900 Output Total 50 Balance -50 900 Intake: IV 900 Ampicillin-Sulbactam 3 gm 100 In Sodium Chloride 0.9% 100 ml @ 200 mls/hr IVPB Q8HR THERON Rx#:[id number] Sodium Chloride 0.9% 1, 800 000 ml @ 100 mls/hr IV . Q10H THERON Rx#:[id number] Output: Emesis 50 Other: Voiding Method Toilet # Voids 1 2 - Labs CBC & Chem 7: 03/19/18 10:06 03/19/18 10:06 Labs: Abnormal Lab Results - Last 24 Hours (Table) 03/18/18 03/18/18 03/19/18 Range/Units 16:55 20:41 07:06 WBC (3.8-10.6) k/uL Neutrophils # (1.3-7.7) k/uL Potassium (3.5-5.1) mmol/L Creatinine (0.66-1.25) mg/dL Glucose (74-99) mg/dL POC Glucose (mg/dL) 150 H 173 H 179 H (75-99) mg/dL Alkaline Phosphatase (38-126) U/L 03/19/18 03/19/18 03/19/18 Range/Units 10:06 10:06 11:37 WBC 11.5 H (3.8-10.6) k/uL Neutrophils # 9.5 H (1.3-7.7) k/uL Potassium 3.2 L (3.5-5.1) mmol/L Creatinine 0.62 L (0.66-1.25) mg/dL Glucose 159 H (74-99) mg/dL POC Glucose (mg/dL) 204 H (75-99) mg/dL Alkaline Phosphatase 158 H (38-126) U/L - Imaging and Cardiology CT scan - abdomen: report reviewed, image reviewed CT scan - pelvis: report reviewed, image reviewed NM Liver - unremarkable 2 years ago NM stomach - confirmed gastroparesis
[2018-03-19] MEDS ORDERED: SODIUM CHLORIDE 0.9% 2,000 ML IV ONE (16:07)
[2018-03-19] MEDS ORDERED: DEXAMETHASONE SOD PHOSPHATE 10 MG/ML 1 ML VIAL IV STA (16:07)
[2018-03-19] MEDS: MAGNESIUM SULFATE-D5W PMX 1 GM in DEXTROSE/WATER 1 100ML.BAG IVPB SCH ×2 (16:35→17:40)
[2018-03-19 17:09] LABS: Glucose,Whole Blood 202 mg/dL (75-99)
[2018-03-19] MEDS: PROMETHAZINE 25 MG TAB PO PRN (18:17)
[2018-03-19 20:52] LABS: Glucose,Whole Blood 193 mg/dL (75-99)
--- NOTE | 2018-03-19 21:55 | P.PN ---
Subjective This is a pleasant 37 years old male with past medical history of diabetes mellitus, gastroparesis, bleeding ulcer, chronic lower abdominal pain status post colonoscopy last week,. He presents because of nausea vomiting, which were looks like more intractable through one day duration about 10 times per day. Associated with bloody vomitus and coffee ground vomitus. Also patient complains from lower abdominal pain since last October what looks like that is why he had a colonoscopy 4. Patient also complains from mild diarrhea with no blood in it. Patient says he has urgency in his urination but no dysuria or change in frequency. On admission she is whatsoever count 15.2, BMP was unremarkable with creatinine 0.63 and normal sodium and potassium level. Sugar is controlled. Magnesium 1.8. Liver enzymes not elevated except for markedly increased alkaline phosphatase at 181. On admission patient was started on Unasyn, Protonix twice a day and normal saline at 100 mL per hour. Patient had CAT scan of the abdomen and pelvis showing adequate focal thickened appendix. Patient was already been evaluated by surgical team with no surgical intervention. Patient was reluctant to see Dr. Rosales yesterday. 03/19/2018 Patient today feels better with less nausea vomiting, he still has a chronic lower abdominal pain and tenderness including both sides and suprapubic. He denies any dysuria or urinary complaints but he has little diarrhea since yesterday. Is better hydrated. No more vomiting blood. Surgical evaluation is appreciated and they recommended no surgical intervention for now. Patient agrees for GI evaluation today's surgical GI consult. Repeat labs from today showing creatinine 0.6 and potassium 3.2 as replaced, liver enzymes within normal limits. We'll check for C. diff. Objective - Vital Signs Vital signs: Vital Signs Temp 98.3 F 03/19/18 05:39 Pulse 79 03/19/18 05:39 Resp 16 03/19/18 05:39 BP 171/95 03/19/18 05:39 Pulse Ox 99 03/19/18 05:39 Intake & Output 03/18/18 03/19/18 03/19/18 18:59 06:59 18:59 Output Total 50 Balance -50 Output: Emesis 50 Other: Voiding Method Toilet # Voids 1 2 - Exam GENERAL: The patient is alert and oriented x3, not in any acute distress. Well developed, well nourished. HEENT: Pupils are round and equally reacting to light. EOMI. No scleral icterus. No conjunctival pallor. Normocephalic, atraumatic. No pharyngeal erythema. No thyromegaly. CARDIOVASCULAR: S1 and S2 present. No murmurs, rubs, or gallops. PULMONARY: Chest is clear to auscultation, no wheezing or crackles. -ABDOMEN: Soft, lower abdominal tenderness with no rebound tenderness or guarding nondistended, normoactive bowel sounds. No palpable organomegaly. MUSCULOSKELETAL: No joint swelling or deformity. EXTREMITIES: No cyanosis, clubbing, or pedal edema. NEUROLOGICAL: Gross neurological examination did not reveal any focal deficits. SKIN: No rashes. - Labs CBC & Chem 7: 03/18/18 11:15 03/19/18 10:06 Labs: Abnormal Lab Results - Last 24 Hours (Table) 03/18/18 03/18/18 03/18/18 Range/Units 11:15 12:17 16:55 WBC 15.2 H (3.8-10.6) k/uL Neutrophils # 13.2 H (1.3-7.7) k/uL Potassium (3.5-5.1) mmol/L Creatinine (0.66-1.25) mg/dL Glucose (74-99) mg/dL POC Glucose (mg/dL) 147 H 150 H (75-99) mg/dL Alkaline Phosphatase (38-126) U/L 03/18/18 03/19/18 03/19/18 Range/Units 20:41 07:06 10:06 WBC (3.8-10.6) k/uL Neutrophils # (1.3-7.7) k/uL Potassium 3.2 L (3.5-5.1) mmol/L Creatinine 0.62 L (0.66-1.25) mg/dL Glucose 159 H (74-99) mg/dL POC Glucose (mg/dL) 173 H 179 H (75-99) mg/dL Alkaline Phosphatase 158 H (38-126) U/L 03/19/18 Range/Units 11:37 WBC (3.8-10.6) k/uL Neutrophils # (1.3-7.7) k/uL Potassium (3.5-5.1) mmol/L Creatinine (0.66-1.25) mg/dL Glucose (74-99) mg/dL POC Glucose (mg/dL) 204 H (75-99) mg/dL Alkaline Phosphatase (38-126) U/L Assessment and Plan Assessment: Intractable nausea vomiting Dehydration Coffee ground vomitus on blood and vomiting History of peptic ulcer Chronic lower abdominal pain History of gastroparesis and History of diabetes mellitus Current cigarettes smoker History of prolonged marijuana use, patient has medical card. Plan: This is a pleasant 37 years old male who presents because of intractable nausea vomiting. We'll call surgical consults, IV hydration, symptomatic treatment with antiemetic, advance diet slowly as tolerated. Labs and medication were reviewed.. Continue same treatment. Continue with symptomatic treatment. Resume home medication. Monitor lytes and vitals. DVT and GI prophylaxis. Further recommendations of the clinical course of the patient DVT prophylaxis: no heparin in view of blood in the vomitus GI Prophylaxis: Protonix Prognosis is guarded
[2018-03-19] MEDS: amLODIPine 5 MG TAB PO SCH (22:16)
[2018-03-20] MEDS: AMPICILLIN-SULBACTAM 3 GM in SODIUM CHLORIDE 0.9% 100 ML IVPB SCH ×2 (01:02→08:23)
[2018-03-20] MEDS: METOCLOPRAMIDE 5 MG/ML 2 ML VIAL IVP SCH ×3 (01:02→12:47)
[2018-03-20] MEDS: PROMETHAZINE 25 MG TAB PO PRN (03:35)
[2018-03-20] MEDS: SODIUM CHLORIDE 0.9% 1,000 ML IV SCH ×2 (05:40→10:49)
[2018-03-20 06:02] VITALS: TEMP 98.7
[2018-03-20 07:18] LABS: Glucose,Whole Blood 218 mg/dL (75-99)
[2018-03-20] MEDS: PANTOPRAZOLE 40 MG/10 ML VIAL IVP SCH (08:22)
[2018-03-20] MEDS: amLODIPine 5 MG TAB PO SCH (08:22)
[2018-03-20] MEDS: INSULIN ASPART 100 UNIT/ML 1 ML 10 ML VIAL SQ SCH ×2 (08:24→12:50)
[2018-03-20] MEDS: NICOTINE 21MG/24HR PATCH TRANSDERM SCH (08:24)
[2018-03-20 11:23] LABS: ALT 28 U/L (21-72); AST 23 U/L (17-59); Albumin 3.9 g/dL (3.5-5.0); Alkaline Phosphatase 132 U/L (38-126); Anion Gap 9 mmol/L; Blood Urea Nitrogen 8 mg/dL (9-20); Calcium 8.8 mg/dL (8.4-10.2); Carbon Dioxide 27 mmol/L (22-30); Chloride 100 mmol/L (98-107); Glucose 213 mg/dL (74-99); Potassium 3.8 mmol/L (3.5-5.1); Sodium 136 mmol/L (137-145); Total Bilirubin 0.8 mg/dL (0.2-1.3); Total Protein 6.6 g/dL (6.3-8.2)
--- NOTE | 2018-03-20 12:42 | NM ---
EXAMINATION TYPE: NM hepatobiliary w EF DATE OF EXAM: 03/20/2018 COMPARISON: NONE HISTORY: Right upper quadrant pain TECHNIQUE: After the intravenous administration of 4.96 mCi Tc 99m Mebrofenin hepatobiliary scintigra phy is performed. Immediate images post injection. FINDINGS: There is satisfactory initial accumulation of tracer by the liver. The gallbladder is visualized wit hin 15-20 minutes. The small bowel activity is noted within 20 minutes. At one hour 8 ounces of ora l ensure plus is given to mimic CCK and gallbladder ejection fraction is calculated at 29 %, in the n ormal range. Therefore there is no scintigraphic evidence of cystic or common bile duct obstruction to suggest acute cholecystitis or gallbladder dyskinesia. IMPRESSION: Exam is within normal limits.
[2018-03-20 12:43] LABS: Glucose,Whole Blood 236 mg/dL (75-99)
[2018-03-20 14:18] VITALS: BP 136/75; PULSE 90
--- NOTE | 2018-03-20 14:53 | P.PN ---
Subjective Progress Note Date: 03/20/18 CHIEF COMPLAINT: Intractabel nausea and vomiting HISTORY OF PRESENT ILLNESS: The patient is a 37-year-old male who is a type 2 diabetic for 10 years poorly controlled. After IV fluid hydration including increasing Reglan for 5 mg to 10 mg 3 times daily as well as adding Decadron, he feels well. Intractable nausea and vomiting resolved. PHYSICAL EXAM: VITAL SIGNS: Reviewed GENERAL: Well-developed in no distress HEENT: No sclera icterus. Extraocular movements grossly intact. Moist buccal mucosa. Head is atraumatic, normocephalic. Hears conversational speech. NECK: Supple without lymphadenopathy. CHEST: Non-labored respirations and equal bilateral excursions. CARDIOVASCULAR: Palpable 2+ radial pulses. Regular rate and regular rhythm ABDOMEN: Soft. Non-distended. MUSCULOSKELETAL: No clubbing, cyanosis. No edema. NEUROLOGIC: No focal or lateralizing signs. Cranial nerves II through XII grossly intact. PSYCH: Appropriate affect. Alert and oriented to person, place and time. SKIN: Well perfused. Good skin turgor. LABS: Reviewed STUDIES: Reviewed ASSESSMENT: 1. Intractable nausea and vomiting 2. Abnormal CT scan 3. Diabetic gastroparesis 4. Dehydration PLAN: 1. Agreeable with discharge. 2. Follow-up as needed Objective - Vital Signs Vital signs: Vital Signs Temp 98.7 F 03/20/18 14:18 Pulse 90 03/20/18 14:18 Resp 16 03/20/18 14:18 BP 136/75 03/20/18 14:18 Pulse Ox 98 03/20/18 14:18 Intake & Output 03/19/18 03/20/18 03/20/18 18:59 06:59 18:59 Intake Total 900 Balance 900 Intake: IV 900 Ampicillin-Sulbactam 3 gm 100 In Sodium Chloride 0.9% 100 ml @ 200 mls/hr IVPB Q8HR [facility] Rx#:[id number] Sodium Chloride 0.9% 1, 800 000 ml @ 100 mls/hr IV . Q10H [facility]ERON Rx#:[id number] Other: # Voids 3 3 - Labs CBC & Chem 7: 03/19/18 10:06 03/20/18 10:05 Labs: Abnormal Lab Results - Last 24 Hours (Table) 03/19/18 03/19/18 03/20/18 Range/Units 17:06 20:51 07:16 Sodium (137-145) mmol/L BUN (9-20) mg/dL Creatinine (0.66-1.25) mg/dL Glucose (74-99) mg/dL POC Glucose (mg/dL) 202 H 193 H 218 H (75-99) mg/dL Alkaline Phosphatase (38-126) U/L 03/20/18 03/20/18 Range/Units 10:05 12:42 Sodium 136 L (137-145) mmol/L BUN 8 L (9-20) mg/dL Creatinine 0.65 L (0.66-1.25) mg/dL Glucose 213 H (74-99) mg/dL POC Glucose (mg/dL) 236 H (75-99) mg/dL Alkaline Phosphatase 132 H (38-126) U/L - Imaging and Cardiology Nuclear hepatobiliary scan negative for early dyskinesia
--- NOTE | 2018-03-26 03:58 | P.DS ---
Providers Date of admission: 03/17/18 21:28 Attending physician: Inocente Mccollum MD Consults: 03/17/18 21:29 Consult Physician Routine Consulting Provider: Gerardo Posada Consult Reason/Comments: Nausea vomiting, enlarged appendix Do you want consulting provider notified?: Already Contacted 03/19/18 09:58 Consult Physician Routine Consulting Provider: Mehdi Alba Consult Reason/Comments: hematamesis , coffee ground vomitus Do you want consulting provider notified?: Yes Primary care physician: Naz Oliva Hospital Course: Diagnoses: gastro-enteritis like illness Intractable nausea vomiting Dehydration History of peptic ulcer Chronic lower abdominal pain History of gastroparesis and History of diabetes mellitus Current cigarettes smoker History of prolonged marijuana use, patient has medical card. Hospital course This is a pleasant 37 years old male with past medical history of diabetes mellitus, gastroparesis, bleeding ulcer, chronic lower abdominal pain status post colonoscopy last week,. He presents because of recurrent nausea vomiting, he had also lower abd pain which was going on for several months as per pt , he had mild diarrhea . pt was treated with iv fluids and antibioitic , protonix and pain management , pt showed interval improvement and on the day of discharge he had no n/v, his abd pain was relieved, he tolerated his regular diet well and has normal bowel movement as pt confirmed to me. pt leukocytosis resolved. pt has been evalauted by surgical and skid adzer teams , with no surgical interventions needed. pt was cleared by both services surgical and skid adzer teams for discharge Pt was instructed about the problems and management plan and Pt verbalized understanding and acceptance Pt is found stable and can be discharged to the community but needs follow up as outpt. pt agrees with appointments and their timing and stated he will follow up. pt was instructed to f/u with his pcp in one week , also pt states he will follow up with his own gastroenterologsit wiht whom he had recent colonoscopy. Discharge exam Gen.: Patient alert awake and oriented X 3, NOT IN DISTRESS CVS: s1-s2, RRR, no murmur CHEST:bilateral CTA, no wheezing or crepitation Abdomen: Soft, no tenderness, no distention, positive bowel sounds Extremities: No leg edema or induration time spent : more than 35 min Patient Condition at Discharge: Stable Plan - Discharge Summary New Discharge Prescriptions: New amLODIPine [Norvasc] 5 mg PO DAILY #30 tab Amoxic-Pot Clav 875-125Mg [Augmentin 875-125] 1 tab PO Q12HR #14 tablet Pantoprazole Sodium [Protonix] 40 mg PO DAILY #30 tablet.dr Powell sitaGLIPtin [Januvia] 100 mg PO DAILY Metoclopramide [Reglan] 10 mg PO TID #20 tab Promethazine [Phenergan] 25 mg PO QID PRN PRN Reason: Nausea HYDROcodone/APAP 7.5-325MG [[place] 7.5-325] 1 tab PO TID PRN PRN Reason: Pain Glimepiride [Amaryl] 2 mg PO AC-BRKFST Dicyclomine [Bentyl] 20 mg PO QID #12 tab Discharge Medication List sitaGLIPtin [Januvia] 100 mg PO DAILY 02/15/18 [History] Metoclopramide [Reglan] 10 mg PO TID #20 tab 02/17/18 [Rx] Glimepiride [Amaryl] 2 mg PO AC-BRKFST 03/17/18 [History] HYDROcodone/APAP 7.5-325MG [[place] 7.5-325] 1 tab PO TID PRN 03/17/18 [History] Promethazine [Phenergan] 25 mg PO QID PRN 03/17/18 [History] Amoxic-Pot Clav 875-125Mg [Augmentin 875-125] 1 tab PO Q12HR #14 tablet [Rx] Dicyclomine [Bentyl] 20 mg PO QID #12 tab 03/20/18 [Rx] Pantoprazole Sodium [Protonix] 40 mg PO DAILY #30 tablet. 03/20/18 [Rx] amLODIPine [Norvasc] 5 mg PO DAILY #30 tab 03/20/18 [Rx] Follow up Appointment(s)/Referral(s): Naz Oliva DO [Primary Care Provider] - 1-2 days Patient Instructions/Handouts: Acute Nausea and Vomiting (DC) Activity/Diet/Wound Care/Special Instructions: diabetic 1800 K juliano per day diet activity is limited till you see your doctor Discharge Disposition: HOME SELF-CARE
== END 2018-03-20 14:55 | disposition home or self-care (01) ==
LOC: EC 18:57 → 4MS4W 21:28
PROVIDERS: ADMIT Internal Medicine; ATTEND Internal Medicine
DX: E11.43 Type 2 diabetes mellitus with diabetic autonomic (poly)neuropathy (principal); K31.84 Gastroparesis; R19.7 Diarrhea, unspecified; K92.2 Gastrointestinal hemorrhage, unspecified; K92.0 Hematemesis; G89.29 Other chronic pain; R10.30 Lower abdominal pain, unspecified; R39.15 Urgency of urination; E86.0 Dehydration; F17.210 Nicotine dependence, cigarettes, uncomplicated; F12.90 Cannabis use, unspecified, uncomplicated; D72.829 Elevated white blood cell count, unspecified; R74.8 Abnormal levels of other serum enzymes; Z86.14 Personal history of Methicillin resistant Staphylococcus aureus infection; Z87.11 Personal history of peptic ulcer disease; Z82.49 Family history of ischemic heart disease and other diseases of the circulatory system; Z80.3 Family history of malignant neoplasm of breast; Z80.8 Family history of malignant neoplasm of other organs or systems; Z79.84 Long term (current) use of oral hypoglycemic drugs; Z79.899 Other long term (current) drug therapy; E66.9 Obesity, unspecified; Z68.26 Body mass index [BMI] 26.0-26.9, adult
CPT/HCPCS: 96376 ×4; 96361 ×4; 96365; 96366 ×3; 96367; 96375 ×2; 99285; 36415; 80053 ×4; 82150; 83605; 83690; 83735 ×2; 85025 ×3; 85610; 85730; 82271; 81003; 87324; 74177; 78226; G0378 ×4; A9537; S4990 ×3; J1100; J2765 ×4; J2405 ×3; J1170 ×4; J3475; J0295 ×3; C9113 ×4; Q9967; 84425

== ENCOUNTER 2018-04-18 19:02 | Emergency (ER) | payer OTHER ==
[2018-04-18] MEDS ORDERED: KETOROLAC 30 MG/ML 1 ML VIAL IVP STA (19:37)
[2018-04-18] MEDS ORDERED: SODIUM CHLORIDE 0.9% 500 ML 500 ML IV STA (19:37)
[2018-04-18] MEDS ORDERED: PROMETHAZINE INJ 25 MG in SODIUM CHLORIDE 0.9% 50 ML IVPB STA (19:37)
[2018-04-18] MEDS ORDERED: SODIUM CHLORIDE 0.9% 1,000 ML IV STA (19:37)
[2018-04-18] MEDS ORDERED: diphenhydrAMINE 50 MG/ML 1 ML VIAL IVP STA (19:37)
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
[2018-04-18 20:12] LABS: Glucose,Whole Blood 204 mg/dL (75-99)
[2018-04-18 20:36] LABS: Basophils % (A) 0 %; Eosinophils # (A) 0.2 k/uL (0-0.7); Eosinophils % (A) 1 %; HCT 46.3 % (39.0-53.0); HGB 15.1 gm/dL (13.0-17.5); Lymphocytes # (A) 0.9 k/uL (1.0-4.8); Lymphocytes % (A) 6 %; MCH 28.2 pg (25.0-35.0); MCHC 32.7 g/dL (31.0-37.0); MCV 86.2 fL (80.0-100.0); Mean Platelet Volume 7.8; Monocytes # (A) 0.3 k/uL (0-1.0); Monocytes % (A) 2 %; Neutrophils # (A) 13.8 k/uL (1.3-7.7); Neutrophils % (A) 90 %; Platelet Count 232 k/uL (150-450); RBC 5.37 m/uL (4.30-5.90); RDW 14.7 % (11.5-15.5); WBC 15.3 k/uL (3.8-10.6)
[2018-04-18 20:44] LABS: ALT 40 U/L (21-72); AST 22 U/L (17-59); Albumin 4.8 g/dL (3.5-5.0); Alkaline Phosphatase 151 U/L (38-126); Amylase 43 U/L (30-110); Anion Gap 11 mmol/L; Blood Urea Nitrogen 12 mg/dL (9-20); Calcium 9.8 mg/dL (8.4-10.2); Carbon Dioxide 25 mmol/L (22-30); Chloride 103 mmol/L (98-107); Glucose 214 mg/dL (74-99); Lipase 106 U/L (23-300); Potassium 4.3 mmol/L (3.5-5.1); Sodium 139 mmol/L (137-145); Total Bilirubin 1.1 mg/dL (0.2-1.3); Total Protein 8.1 g/dL (6.3-8.2)
--- NOTE | 2018-04-18 21:28 | XR ---
EXAMINATION TYPE: XR KUB DATE OF EXAM: 04/18/2018 9:11 PM CLINICAL HISTORY: Nausea and vomiting today. Abdominal pain per order. TECHNIQUE: Two Upright KUB images of the abdomen are obtained. COMPARISON: CT abdomen and pelvis March 17, 2018. FINDINGS: Scattered gas is seen in non-distended small bowel loops. Gas and fecal material is seen in non-distended colon and rectum. There is no visceromegaly, pneumoperitoneum, or abnormal calcificati on appreciated. The lung bases are clear and the osseous structures are intact. IMPRESSION: Overall nonobstructive bowel gas pattern.
[2018-04-18] MEDS ORDERED: METOCLOPRAMIDE 5 MG/ML 2 ML VIAL IVP STA (22:06)
[2018-04-18] MEDS ORDERED: HYDROmorphone 2 MG/ML 1 ML SYRINGE IVP STA (22:06)
[2018-04-18] MEDS ORDERED: PANTOPRAZOLE 40 MG/10 ML VIAL IVP STA (22:06)
[2018-04-18 22:47] LABS: Appearance,Urine Clear (Clear); Bilirubin,Urine Negative (Negative); Blood,Urine Negative (Negative); Color,Urine Yellow; Glucose,Urine (UA) 4+ (Negative); Leukocyte Esterase,Urine Negative (Negative); Nitrite,Urine Negative (Negative); PH, Urine 7.5 (5.0-8.0); Protein,Urine Trace (Negative); Specific Gravity,Urine 1.016 (1.001-1.035); Urobilinogen,Urine <2.0 mg/dL (<2.0)
[2018-04-18 22:48] LABS: Ketones,Urine 3+ (Negative)
[2018-04-18] MEDS ORDERED: HYDROmorphone 1 MG/ML 1 ML SYRINGE IVP STA (23:14)
[2018-04-19 00:29] VITALS: BP 128/76; PULSE 87; RESP 18; TEMP 99.1
== END 2018-04-19 00:28 | disposition home or self-care (01) ==
LOC: EC 19:02
DX: R11.2 Nausea with vomiting, unspecified (principal); R10.30 Lower abdominal pain, unspecified; E11.9 Type 2 diabetes mellitus without complications; F17.200 Nicotine dependence, unspecified, uncomplicated; Z86.14 Personal history of Methicillin resistant Staphylococcus aureus infection; Z79.84 Long term (current) use of oral hypoglycemic drugs; Z79.899 Other long term (current) drug therapy
CPT/HCPCS: 36415; 80053; 82150; 83690; 85025; 81003; 74018; 99284; 96374; 96375 ×5; 96376; 96361; J1170 ×2; J1200; J2550; J2765; J1885; C9113

== ENCOUNTER 2018-04-25 08:42 | Emergency (ER) | payer OTHER ==
[2018-04-25 08:48] VITALS: RESP 18
[2018-04-25] MEDS ORDERED: METOCLOPRAMIDE 5 MG/ML 2 ML VIAL IVP STA (09:44)
[2018-04-25] MEDS ORDERED: LORazepam 2 MG/ML INJ IV STA (09:44)
[2018-04-25] MEDS ORDERED: SODIUM CHLORIDE 0.9% 2,000 ML IV STA (09:44)
[2018-04-25] MEDS ORDERED: FAMOTIDINE 20 MG/2 ML VIAL IV STA (09:44)
[2018-04-25] MEDS ORDERED: diphenhydrAMINE 50 MG/ML 1 ML VIAL IVP STA (09:44)
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
[2018-04-25 10:28] LABS: Basophils % (A) 0 %; Eosinophils # (A) 0.1 k/uL (0-0.7); Eosinophils % (A) 1 %; HCT 45.5 % (39.0-53.0); HGB 15.2 gm/dL (13.0-17.5); Lymphocytes # (A) 1.1 k/uL (1.0-4.8); Lymphocytes % (A) 9 %; MCH 28.8 pg (25.0-35.0); MCHC 33.4 g/dL (31.0-37.0); MCV 86.3 fL (80.0-100.0); Mean Platelet Volume 6.6; Monocytes # (A) 0.3 k/uL (0-1.0); Monocytes % (A) 3 %; Neutrophils # (A) 10.6 k/uL (1.3-7.7); Neutrophils % (A) 87 %; Platelet Count 267 k/uL (150-450); RBC 5.27 m/uL (4.30-5.90); RDW 15.2 % (11.5-15.5); WBC 12.2 k/uL (3.8-10.6)
[2018-04-25 10:36] LABS: INR 1.1 (<1.2); Partial Thromboplastin Time 23.8 sec (22.0-30.0); Prothrombin Time 11.5 sec (9.0-12.0)
[2018-04-25 10:38] LABS: ALT 30 U/L (21-72); AST 18 U/L (17-59); Albumin 4.7 g/dL (3.5-5.0); Alkaline Phosphatase 112 U/L (38-126); Amylase 35 U/L (30-110); Anion Gap 13 mmol/L; Blood Urea Nitrogen 16 mg/dL (9-20); Calcium 9.8 mg/dL (8.4-10.2); Carbon Dioxide 25 mmol/L (22-30); Chloride 100 mmol/L (98-107); Glucose 231 mg/dL (74-99); Lipase 54 U/L (23-300); Sodium 138 mmol/L (137-145); Total Bilirubin 1.1 mg/dL (0.2-1.3); Total Protein 7.9 g/dL (6.3-8.2)
[2018-04-25 10:57] VITALS: TEMP 98.2
--- NOTE | 2018-04-25 11:09 | XR ---
EXAMINATION TYPE: XR KUB DATE OF EXAM: 04/25/2018 11:02 AM CLINICAL HISTORY: Abdominal pain with vomiting blood. Blood in stool. TECHNIQUE: Two Upright KUB images of the abdomen are obtained. COMPARISON: CT abdomen and pelvis March 17, 2018 and abdominal x-ray April 18, 2018. FINDINGS: There is some paucity of bowel gas. Visualized gas is noted in nondistended bowel loops sca ttered throughout the abdomen and pelvis. No pneumoperitoneum or suspicious calcification is seen. [place] ng bases are clear. IMPRESSION: Overall nonspecific but favor nonobstructive bowel gas pattern.
[2018-04-25 11:14] LABS: Appearance,Urine Clear (Clear); Bilirubin,Urine Negative (Negative); Blood,Urine Negative (Negative); Color,Urine Yellow; Glucose,Urine (UA) 4+ (Negative); Leukocyte Esterase,Urine Negative (Negative); Mucus,Urine Many /hpf; Nitrite,Urine Negative (Negative); Protein,Urine 1+ (Negative); RBC,Urine <1 /hpf (0-5); Specific Gravity,Urine 1.024 (1.001-1.035); Squamous Epithelial Cell,Urine <1 /hpf (0-4); Urobilinogen,Urine <2.0 mg/dL (<2.0); WBC,Urine 1 /hpf (0-5)
[2018-04-25 11:18] LABS: Ketones,Urine 3+ (Negative)
[2018-04-25 12:48] VITALS: BP 153/99; PULSE 85
== END 2018-04-25 12:48 | disposition home or self-care (01) ==
LOC: EC 08:42
DX: R11.2 Nausea with vomiting, unspecified (principal); R61 Generalized hyperhidrosis; K31.84 Gastroparesis; E11.43 Type 2 diabetes mellitus with diabetic autonomic (poly)neuropathy; K50.919 Crohn's disease, unspecified, with unspecified complications; F17.200 Nicotine dependence, unspecified, uncomplicated; Z79.52 Long term (current) use of systemic steroids; Z79.84 Long term (current) use of oral hypoglycemic drugs; Z86.14 Personal history of Methicillin resistant Staphylococcus aureus infection
CPT/HCPCS: 36415; 80053; 82150; 83690; 85025; 85610; 85730; 81001; 74018; 99284; 96374; 96375 ×3; 96361 ×3; J2060; J1200; J2765

== ENCOUNTER 2018-05-21 13:49 | Emergency (ER) | payer OTHER ==
[2018-05-21] MEDS ORDERED: SODIUM CHLORIDE 0.9% 1,000 ML IV STA (14:13)
[2018-05-21] MEDS ORDERED: SODIUM CHLORIDE 0.9% 500 ML 500 ML IV STA (14:13)
[2018-05-21] MEDS ORDERED: ONDANSETRON 4 MG/2 ML VIAL IVP STA ×2 (14:14→16:59)
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
[2018-05-21] MEDS ORDERED: PANTOPRAZOLE 40 MG/10 ML VIAL IVP STA (14:16)
[2018-05-21] MEDS ORDERED: LORazepam 2 MG/ML INJ IV STA ×2 (14:17→16:59)
[2018-05-21 14:44] LABS: Basophils % (A) 0 %; Eosinophils # (A) 0.1 k/uL (0-0.7); Eosinophils % (A) 1 %; HCT 42.6 % (39.0-53.0); HGB 14.9 gm/dL (13.0-17.5); Lymphocytes # (A) 1.6 k/uL (1.0-4.8); Lymphocytes % (A) 12 %; MCH 29.2 pg (25.0-35.0); MCHC 35.1 g/dL (31.0-37.0); MCV 83.3 fL (80.0-100.0); Monocytes # (A) 0.5 k/uL (0-1.0); Monocytes % (A) 4 %; Neutrophils # (A) 10.8 k/uL (1.3-7.7); Neutrophils % (A) 83 %; Platelet Count 242 k/uL (150-450); RBC 5.11 m/uL (4.30-5.90)
[2018-05-21 14:54] LABS: ALT 25 U/L (21-72); AST 20 U/L (17-59); Albumin 4.7 g/dL (3.5-5.0); Alkaline Phosphatase 129 U/L (38-126); Amylase 39 U/L (30-110); Anion Gap 14 mmol/L; Blood Urea Nitrogen 14 mg/dL (9-20); Calcium 10.1 mg/dL (8.4-10.2); Carbon Dioxide 24 mmol/L (22-30); Chloride 103 mmol/L (98-107); Glucose 208 mg/dL (74-99); Lipase 133 U/L (23-300); Potassium 3.8 mmol/L (3.5-5.1); Sodium 141 mmol/L (137-145); Total Bilirubin 1.1 mg/dL (0.2-1.3)
[2018-05-21] MEDS ORDERED: diphenhydrAMINE 50 MG/ML 1 ML VIAL IVP STA (15:51)
[2018-05-21] MEDS ORDERED: METOCLOPRAMIDE 5 MG/ML 2 ML VIAL IVP STA (15:52)
[2018-05-21 16:33] VITALS: RESP 20
[2018-05-21] MEDS ORDERED: KETOROLAC 60 MG/2 ML VIAL IVP STA (16:59)
[2018-05-21 17:14] LABS: Amphetamine Screen,Urine Not Detected (NotDetected); Barbiturate Screen,Urine Not Detected (NotDetected); Benzodiazepines Screen,Urine Detected (NotDetected); Cocaine Screen,Urine Not Detected (NotDetected); Methadone Screen, Urine Not Detected (NotDetected); Opiate Screen,Urine Detected (NotDetected); Oxycodone Screen, Urine Not Detected (NotDetected); Phencyclidine Screen,Urine Not Detected (NotDetected); Tricyclic Antidepressant,Urine Not Detected (NotDetected); Urn Cannabinoid Scrn Detected (NotDetected)
[2018-05-21 17:39] VITALS: BP 152/87; PULSE 82; TEMP 98.9
== END 2018-05-21 17:45 | disposition home or self-care (01) ==
LOC: EC 13:49
DX: G43.A0 Cyclical vomiting, in migraine, not intractable (principal); E11.43 Type 2 diabetes mellitus with diabetic autonomic (poly)neuropathy; K31.84 Gastroparesis; K50.90 Crohn's disease, unspecified, without complications; F17.200 Nicotine dependence, unspecified, uncomplicated; Z79.52 Long term (current) use of systemic steroids; Z79.84 Long term (current) use of oral hypoglycemic drugs; Z86.14 Personal history of Methicillin resistant Staphylococcus aureus infection
CPT/HCPCS: 36415; 80053; 82150; 83690; 85025; 80306; 99284; 96374; 96375 ×5; 96376 ×2; 96361 ×2; J2060; J1200; J2765; J2405; J1885; C9113

== ENCOUNTER 2018-05-22 21:28 | Observation (INO) | payer OTHER ==
[2018-05-22] MEDS ORDERED: HALOPERIDOL LACTATE 5 MG/ML 1 ML VIAL IVP STA ×2 (22:05→23:33)
[2018-05-22] MEDS ORDERED: SODIUM CHLORIDE 0.9% 1,000 ML IV STA (22:08)
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
[2018-05-22 22:33] LABS: Anisocytosis Slight; Basophils % (A) 0 %; Eosinophils # (A) 0.2 k/uL (0-0.7); Eosinophils % (A) 1 %; HCT 42.3 % (39.0-53.0); HGB 15.2 gm/dL (13.0-17.5); Hyperchromasia Slight; Lymphocytes # (A) 1.3 k/uL (1.0-4.8); Lymphocytes % (A) 9 %; MCH 28.7 pg (25.0-35.0); MCV 79.6 fL (80.0-100.0); Mean Platelet Volume 10.2; Monocytes # (A) 0.6 k/uL (0-1.0); Monocytes % (A) 4 %; Neutrophils % (A) 86 %; Platelet Count 252 k/uL (150-450); RBC 5.31 m/uL (4.30-5.90); RDW 16.9 % (11.5-15.5); WBC 15.1 k/uL (3.8-10.6)
--- NOTE | 2018-05-22 22:53 | XR ---
EXAM: XR Abdomen 2 Views With XR Chest CLINICAL HISTORY: Pain TECHNIQUE: Frontal view of the chest, frontal view of the abdomen/pelvis and upright or decubitus view of the abdomen. COMPARISON: No relevant prior studies available. FINDINGS: Lungs: Unremarkable. No consolidation. Pleural space: Unremarkable. No pneumothorax. Heart: Unremarkable. No cardiomegaly. Mediastinum: Unremarkable. Intraperitoneal space: No free air. Gastrointestinal tract: Unremarkable. No dilation. Bones/joints: Unremarkable. IMPRESSION: Normal chest, abdomen and pelvis x-rays.
[2018-05-22] MEDS ORDERED: ONDANSETRON 4 MG/2 ML VIAL IVP STA (22:56)
[2018-05-22] MEDS ORDERED: METOCLOPRAMIDE 5 MG/ML 2 ML VIAL IVP STA (23:00)
[2018-05-22 23:13] LABS: ALT 27 U/L (21-72); AST 22 U/L (17-59); Albumin 4.8 g/dL (3.5-5.0); Alcohol <10 mg/dL; Alkaline Phosphatase 124 U/L (38-126); Anion Gap 17 mmol/L; Blood Urea Nitrogen 15 mg/dL (9-20); Calcium 10.3 mg/dL (8.4-10.2); Carbon Dioxide 22 mmol/L (22-30); Chloride 100 mmol/L (98-107); Glucose 236 mg/dL (74-99); Magnesium 1.9 mg/dL (1.6-2.3); Potassium 3.6 mmol/L (3.5-5.1); Sodium 139 mmol/L (137-145); Total Bilirubin 1.3 mg/dL (0.2-1.3)
[2018-05-22] MEDS ORDERED: ONDANSETRON 4 MG/2 ML VIAL IVP PRN (23:35)
[2018-05-22] MEDS ORDERED: NALOXONE 0.4 MG/ML 1 ML VIAL IV PRN (23:35)
[2018-05-23 00:06] LABS: Amphetamine Screen,Urine Not Detected (NotDetected); Barbiturate Screen,Urine Not Detected (NotDetected); Benzodiazepines Screen,Urine Detected (NotDetected); Cocaine Screen,Urine Not Detected (NotDetected); Methadone Screen, Urine Not Detected (NotDetected); Opiate Screen,Urine Detected (NotDetected); Oxycodone Screen, Urine Not Detected (NotDetected); Phencyclidine Screen,Urine Not Detected (NotDetected); Tricyclic Antidepressant,Urine Not Detected (NotDetected); Urn Cannabinoid Scrn Detected (NotDetected)
[2018-05-23] MEDS: SODIUM CHLORIDE 0.9% 1,000 ML IV SCH ×3 (00:38→17:24)
[2018-05-23] MEDS ORDERED: HYDROmorphone 0.5 MG/0.5 ML SYRINGE IM PRN (05:56)
[2018-05-23] MEDS ORDERED: METOCLOPRAMIDE 5 MG/ML 2 ML VIAL IVP STA (05:57)
[2018-05-23] MEDS: PANTOPRAZOLE 40 MG/10 ML VIAL IV SCH (08:07)
[2018-05-23] MEDS: INSULIN ASPART (NovoLOG) 100 UNIT/ML VIAL SQ SCH ×4 (08:09→22:07)
[2018-05-23 08:14] LABS: Glucose,Whole Blood 217 mg/dL (75-99)
[2018-05-23] MEDS: HYDROmorphone 0.5 MG/0.5 ML SYRINGE IVP PRN ×2 (09:53→23:25)
[2018-05-23] MEDS: ONDANSETRON 4 MG/2 ML VIAL IVP PRN ×3 (09:53→22:06)
[2018-05-23] MEDS ORDERED: cloNIDine 0.2 MG/24HR PATCH TRANSDERM SCH (11:00)
[2018-05-23] MEDS: METOCLOPRAMIDE 5 MG/ML 2 ML VIAL IVP SCH ×3 (11:02→23:25)
[2018-05-23 11:51] LABS: Glucose,Whole Blood 180 mg/dL (75-99)
[2018-05-23] MEDS: cloNIDine HCL 0.1 MG TAB PO PRN ×2 (15:15→15:16)
[2018-05-23 16:52] LABS: Glucose,Whole Blood 174 mg/dL (75-99)
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
[2018-05-23 21:38] LABS: Glucose,Whole Blood 151 mg/dL (75-99)
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
[2018-05-24] MEDS: SODIUM CHLORIDE 0.9% 1,000 ML IV SCH ×3 (01:13→21:35)
[2018-05-24] MEDS: ONDANSETRON 4 MG/2 ML VIAL IVP PRN ×3 (03:38→21:35)
[2018-05-24] MEDS: HYDROmorphone 0.5 MG/0.5 ML SYRINGE IVP PRN ×3 (03:38→13:23)
[2018-05-24] MEDS: METOCLOPRAMIDE 5 MG/ML 2 ML VIAL IVP SCH ×3 (05:20→16:53)
[2018-05-24 07:20] LABS: Glucose,Whole Blood 170 mg/dL (75-99)
[2018-05-24] MEDS: cloNIDine HCL 0.1 MG TAB PO PRN ×2 (07:53→13:24)
[2018-05-24] MEDS: PANTOPRAZOLE 40 MG/10 ML VIAL IV SCH (07:53)
[2018-05-24] MEDS: HEPARIN SODIUM,PORCINE 5,000 UNIT/ML 1 ML VIAL SQ SCH ×2 (07:53→16:53)
[2018-05-24] MEDS: INSULIN ASPART (NovoLOG) 100 UNIT/ML VIAL SQ SCH ×4 (07:53→21:34)
[2018-05-24 08:59] LABS: Anion Gap 11 mmol/L; Blood Urea Nitrogen 10 mg/dL (9-20); Calcium 9.5 mg/dL (8.4-10.2); Carbon Dioxide 26 mmol/L (22-30); Chloride 99 mmol/L (98-107); Glucose 180 mg/dL (74-99); Potassium 3.4 mmol/L (3.5-5.1); Sodium 136 mmol/L (137-145)
--- NOTE | 2018-05-24 10:00 | P.PN ---
Subjective Progress Note Date: 05/24/18 Principal diagnosis: Nausea vomiting No episodes of nausea vomiting. Tolerating clears ice chips requesting diet advancement. Abdominal pain improved. Objective - Vital Signs Vital signs: Vital Signs Temp 98.8 F 05/24/18 07:00 Pulse 91 05/24/18 07:00 Resp 16 05/24/18 07:50 BP 197/102 05/24/18 07:00 Pulse Ox 100 05/24/18 07:00 Intake & Output 05/23/18 05/24/18 05/24/18 18:59 06:59 18:59 Intake Total 1500 Balance 1500 Intake: Intake, IV Titration 1500 Amount Sodium Chloride 0.9% 1, 1500 000 ml @ 120 mls/hr IV . Q8H20M [facility] Rx#:[id number] Other: Voiding Method Toilet Toilet Toilet # Voids 3 2 - Exam General appearance: The patient is alert, oriented, in no acute distress. HET: Head is normocephalic and atraumatic. Pupils are equal and reactive. Oropharynx is clear without lesions. Neck: Supple without lymphadenopathy. Trachea midline. Heart: S1 S2. Regular rate and rhythm. Lungs: No crackles or wheezes are heard. Abdomen: Soft, nontender, nondistended with bowel sounds. No peritoneal signs. No palpable organomegaly or masses. Extremities: Normal skin color and turgor. No cyanosis, rash, ulceration, clubbing, or edema. Radial and pedal pulses are 2/4 bilaterally. Neurological: No focal deficits. Strength and sensation are grossly intact. - Labs CBC & Chem 7: 05/22/18 22:15 05/24/18 08:18 Labs: Abnormal Lab Results - Last 24 Hours (Table) 05/23/18 05/23/18 05/23/18 Range/Units 11:27 16:30 21:37 Sodium (137-145) mmol/L Potassium (3.5-5.1) mmol/L Creatinine (0.66-1.25) mg/dL Glucose (74-99) mg/dL POC Glucose (mg/dL) 180 H 174 H 151 H (75-99) mg/dL 05/24/18 05/24/18 Range/Units 07:00 08:18 Sodium 136 L (137-145) mmol/L Potassium 3.4 L (3.5-5.1) mmol/L Creatinine 0.60 L (0.66-1.25) mg/dL Glucose 180 H (74-99) mg/dL POC Glucose (mg/dL) 170 H (75-99) mg/dL Assessment and Plan (1) Gastroparesis Current Visit: Yes Status: Acute Code(s): K31.84 - GASTROPARESIS SNOMED Code(s): 319142531 (2) Abdominal pain Current Visit: No Status: Acute Code(s): R10.9 - UNSPECIFIED ABDOMINAL PAIN SNOMED Code(s): 26696089 (3) Intractable nausea and vomiting Current Visit: No Status: Acute Code(s): R11.2 - NAUSEA WITH VOMITING, UNSPECIFIED SNOMED Code(s): 435260087 Plan: 1. Overall patient is improving requesting diet advancement. Consistent carbohydrate diet for lunch of tolerated discharge per medicine. Continue with Reglan Zofran and Protonix. Glycemic control. Outpatient tertiary referral discussed yesterday. Cannabinoid abstinence advised. Assessment and plan a care discussed with Dr. Alba
[2018-05-24 10:13] LABS: Basophils % (A) 0 %; Eosinophils % (A) 0 %; HCT 42.5 % (39.0-53.0); HGB 14.5 gm/dL (13.0-17.5); Lymphocytes # (A) 1.5 k/uL (1.0-4.8); Lymphocytes % (A) 13 %; MCH 28.6 pg (25.0-35.0); MCHC 34.3 g/dL (31.0-37.0); MCV 83.4 fL (80.0-100.0); Mean Platelet Volume 8.1; Monocytes # (A) 0.6 k/uL (0-1.0); Monocytes % (A) 5 %; Neutrophils # (A) 9.7 k/uL (1.3-7.7); Neutrophils % (A) 81 %; Platelet Count 216 k/uL (150-450); RBC 5.09 m/uL (4.30-5.90); RDW 14.3 % (11.5-15.5)
[2018-05-24] MEDS ORDERED: POTASSIUM CHLORIDE ER 20 MEQ TAB.ER PO STA (10:25)
[2018-05-24] MEDS ORDERED: POTASSIUM CHLORIDE 20 MEQ in WATER FOR INJECTION 1 100ML.BAG IVPB STA (10:26)
[2018-05-24 12:15] LABS: Glucose,Whole Blood 206 mg/dL (75-99)
[2018-05-24 16:43] LABS: Glucose,Whole Blood 210 mg/dL (75-99)
[2018-05-24] MEDS ORDERED: PROCHLORPERAZINE 10 MG TAB PO PRN (19:11)
[2018-05-24 21:12] LABS: Glucose,Whole Blood 181 mg/dL (75-99)
[2018-05-25] MEDS: HEPARIN SODIUM,PORCINE 5,000 UNIT/ML 1 ML VIAL SQ SCH ×2 (00:33→08:15)
[2018-05-25] MEDS: HYDROmorphone 0.5 MG/0.5 ML SYRINGE IVP PRN ×2 (00:34→06:22)
[2018-05-25] MEDS: METOCLOPRAMIDE 5 MG/ML 2 ML VIAL IVP SCH ×3 (00:34→12:42)
--- NOTE | 2018-05-25 01:35 | P.PN ---
Subjective Progress Note Date: 05/24/18 Principal diagnosis: Intractable nausea vomiting or abdominal pain due to gastroparesis Patient is a 38-year-old male with a known history of Crohn's disease, diabetes2 [id number], diabetic gastroparesis presents ER with complaints of intractable nausea and vomiting worsening for the past 2-3 days. He is also complaining of diffuse abdominal pain. Patient did have multiple episodes of vomiting on Wednesday night. Patient tried to take antibiotics at home without m uch improvement. Patient has been having worsening symptoms which made him come to the hospital. Acute abdominal series on admission showed normal chest abdomen and pelvis. WBC 14.1 Total bilirubin 1.3 UDS is positive for opiates make arrangements and marijuana 05/24/2018 Patient is still having nausea severe. Possible tried liquid diet and advance as tolerated. Blood pressure is still elevated. Continue with Catapres patch. Patient with IV hydration and antiemetics and follow closely. GI is on board. No complaints of chest pain or shortness of breath. No headache or dizziness or lightheadedness. No fever no chills. No diarrhea. Current medications reviewed. Objective - Vital Signs Vital signs: Vital Signs Temp 98.6 F 05/24/18 19:15 Pulse 81 05/24/18 19:15 Resp 16 05/24/18 19:15 BP 161/87 05/24/18 19:15 Pulse Ox 99 05/24/18 19:15 Intake & Output 05/24/18 05/24/18 05/25/18 06:59 18:59 06:59 Intake Total 1500 Balance 1500 Intake: Intake, IV Titration 1500 Amount Sodium Chloride 0.9% 1, 1500 000 ml @ 120 mls/hr IV . Q8H20M [facility] Rx#:[id number] Other: Voiding Method Toilet Toilet # Voids 2 3 - Exam PHYSICAL EXAMINATION: Patient is lying in the bed comfortably, no acute distress, awake alert and oriented.. HEENT: Normocephalic. Neck is supple. Pupils reactive. Nostrils clear. Oral cavity is moist. Ears reveal no drainage. Neck reveals no JVD, carotid bruits, or thyromegaly. CHEST EXAMINATION: Trachea is central. Symmetrical expansion. Lung brown clear to auscultation and percussion. CARDIAC: Normal S1, S2 with no gallops. No murmurs ABDOMEN: Soft. Bowel sounds normal. No organomegaly. No abdominal bruits. Mild tenderness. No guarding no rigidity. Extremities: reveal no edema. No clubbing or cyanosis Neurologically awake, alert, oriented x3 with well-coordinated movements. No focal deficits noted Skin: No rash or skin lesions. Psychiatric: Coperative. Nonsuicidal Musculoskeletal: No joint swelling or deformity. Normal range of motion. - Labs CBC & Chem 7: 05/24/18 08:18 05/24/18 08:18 Labs: Abnormal Lab Results - Last 24 Hours (Table) 05/24/18 05/24/18 05/24/18 Range/Units 07:00 08:18 08:18 WBC 12.0 H (3.8-10.6) k/uL Neutrophils # 9.7 H (1.3-7.7) k/uL Sodium 136 L (137-145) mmol/L Potassium 3.4 L (3.5-5.1) mmol/L Creatinine 0.60 L (0.66-1.25) mg/dL Glucose 180 H (74-99) mg/dL POC Glucose (mg/dL) 170 H (75-99) mg/dL 05/24/18 05/24/18 05/24/18 Range/Units 11:43 16:31 21:10 WBC (3.8-10.6) k/uL Neutrophils # (1.3-7.7) k/uL Sodium (137-145) mmol/L Potassium (3.5-5.1) mmol/L Creatinine (0.66-1.25) mg/dL Glucose (74-99) mg/dL POC Glucose (mg/dL) 206 H 210 H 181 H (75-99) mg/dL Assessment and Plan Assessment: Intractable nausea vomiting or abdominal pain secondary to diabetic gastroparesis Diabetes type 2 [id number] Uncontrolled hypertension Recent diagnosis of Crohn's disease Marijuana use History of gastric ulcers Nicotine addiction DVT prophylaxis Plan: Patient will be continued on IV hydration. Continue the pain management and symptomatic management for nausea vomiting and abdominal pain. Catapres patch was applied for uncontrolled blood pressure. Currently patient is nothing by mouth. Will follow closely. GI is on board. Further recommendations based on the clinical course. Prognosis is guarded. Patient was counseled for marijuana use. Time with Patient: Greater than 30
[2018-05-25] MEDS: cloNIDine HCL 0.1 MG TAB PO PRN (02:21)
[2018-05-25] MEDS: SODIUM CHLORIDE 0.9% 1,000 ML IV SCH ×2 (03:00→12:47)
[2018-05-25 03:35] VITALS: RESP 17
[2018-05-25 06:46] LABS: Glucose,Whole Blood 191 mg/dL (75-99)
[2018-05-25] MEDS: INSULIN ASPART (NovoLOG) 100 UNIT/ML VIAL SQ SCH ×2 (08:14→12:42)
[2018-05-25] MEDS: PANTOPRAZOLE 40 MG/10 ML VIAL IV SCH (08:15)
[2018-05-25 08:34] VITALS: BP 164/105; PULSE 83; TEMP 98.2
[2018-05-25 11:19] LABS: Glucose,Whole Blood 230 mg/dL (75-99)
== END 2018-05-25 13:58 | disposition left against medical advice (07) ==
LOC: EC 21:28 → 4SSUR 05-23
PROVIDERS: ADMIT Hospitalist; ATTEND Hospitalist
DX: E11.43 Type 2 diabetes mellitus with diabetic autonomic (poly)neuropathy (principal); E87.2 Acidosis; F17.200 Nicotine dependence, unspecified, uncomplicated; I10 Essential (primary) hypertension; K31.84 Gastroparesis; K50.90 Crohn's disease, unspecified, without complications; Z86.14 Personal history of Methicillin resistant Staphylococcus aureus infection; Z79.84 Long term (current) use of oral hypoglycemic drugs; Z79.899 Other long term (current) drug therapy; Z71.51 Drug abuse counseling and surveillance of drug abuser; Z87.11 Personal history of peptic ulcer disease
CPT/HCPCS: 96376 ×3; 96361 ×4; 96365; 96366; 96372 ×4; 96375 ×3; 99285; 36415; 93005; 80053; 80048; 83605 ×2; 83735; 85025 ×2; 80306; 74022; G0378 ×3; G0480; S0183; J1630 ×2; J1644 ×2; J2765 ×4; J3480; J2405 ×2; C9113 ×3; J1170 ×3; 80320

== ENCOUNTER 2018-06-25 08:58 | Observation (INO) | payer OTHER ==
[2018-06-25] MEDS ORDERED: ONDANSETRON 4 MG/2 ML VIAL IVP STA ×2 (09:19→13:57)
[2018-06-25] MEDS ORDERED: SODIUM CHLORIDE 0.9% 1,000 ML IV STA (09:19)
[2018-06-25] MEDS ORDERED: PANTOPRAZOLE 40 MG/10 ML VIAL IVP STA (09:19)
[2018-06-25] MEDS ORDERED: LORazepam 2 MG/ML INJ IV STA (09:26)
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
[2018-06-25 09:41] LABS: Basophils % (A) 0 %; Eosinophils # (A) 0.1 k/uL (0-0.7); Eosinophils % (A) 1 %; HCT 42.1 % (39.0-53.0); HGB 14.5 gm/dL (13.0-17.5); Lymphocytes # (A) 0.9 k/uL (1.0-4.8); Lymphocytes % (A) 6 %; MCH 29.6 pg (25.0-35.0); MCHC 34.4 g/dL (31.0-37.0); Mean Platelet Volume 7.2; Monocytes # (A) 0.3 k/uL (0-1.0); Monocytes % (A) 2 %; Neutrophils # (A) 13.4 k/uL (1.3-7.7); Neutrophils % (A) 91 %; Platelet Count 267 k/uL (150-450); WBC 14.8 k/uL (3.8-10.6)
[2018-06-25 09:52] LABS: ALT 35 U/L (21-72); AST 21 U/L (17-59); Albumin 4.8 g/dL (3.5-5.0); Alkaline Phosphatase 159 U/L (38-126); Anion Gap 14 mmol/L; Blood Urea Nitrogen 14 mg/dL (9-20); Calcium 10.1 mg/dL (8.4-10.2); Carbon Dioxide 24 mmol/L (22-30); Chloride 103 mmol/L (98-107); Glucose 243 mg/dL (74-99); Magnesium 1.6 mg/dL (1.6-2.3); Potassium 4.4 mmol/L (3.5-5.1); Sodium 141 mmol/L (137-145); Total Bilirubin 1.2 mg/dL (0.2-1.3); Total Protein 7.7 g/dL (6.3-8.2)
[2018-06-25 09:55] LABS: INR 1.1 (<1.2); Partial Thromboplastin Time 25.1 sec (22.0-30.0); Prothrombin Time 11.3 sec (9.0-12.0)
[2018-06-25] MEDS ORDERED: SODIUM CHLORIDE 0.9% 1,000 ML IV ONE (10:44)
[2018-06-25 16:53] LABS: Glucose,Whole Blood 169 mg/dL (75-99)
[2018-06-25] MEDS ORDERED: HYDROmorphone 0.5 MG/0.5 ML SYRINGE IVP PRN (16:55)
[2018-06-25] MEDS ORDERED: ALPRAZolam 0.25 MG TAB PO PRN (16:55)
[2018-06-25] MEDS ORDERED: TEMAZEPAM 15 MG CAP PO PRN (16:55)
[2018-06-25] MEDS: SODIUM CHLORIDE 0.9% 1,000 ML IV SCH (16:56)
[2018-06-25 20:22] LABS: Glucose,Whole Blood 172 mg/dL (75-99)
[2018-06-25] MEDS: ONDANSETRON 4 MG/2 ML VIAL IVP PRN (20:33)
[2018-06-25] MEDS ORDERED: ATORVASTATIN 40 MG TAB PO SCH (21:00)
[2018-06-25] MEDS: INSULIN ASPART (NovoLOG) 100 UNIT/ML VIAL SQ SCH (22:04)
[2018-06-25] MEDS: HEPARIN SODIUM,PORCINE 5,000 UNIT/ML 1 ML VIAL SQ SCH (22:04)
[2018-06-25] MEDS: METOCLOPRAMIDE 10 MG TAB PO SCH (22:04)
[2018-06-25] MEDS: PANTOPRAZOLE 40 MG/10 ML VIAL IVP SCH (22:04)
[2018-06-25] MEDS ORDERED: hydrALAZINE HCL 20 MG/ML 1 ML VIAL IVP PRN (22:17)
[2018-06-25 22:31] LABS: Appearance,Urine Clear (Clear); Bilirubin,Urine Negative (Negative); Blood,Urine Negative (Negative); Color,Urine Yellow; Glucose,Urine (UA) 4+ (Negative); Leukocyte Esterase,Urine Negative (Negative); Mucus,Urine Many /hpf; Nitrite,Urine Negative (Negative); PH, Urine 6.5 (5.0-8.0); Protein,Urine 1+ (Negative); RBC,Urine 2 /hpf (0-5); Urobilinogen,Urine <2.0 mg/dL (<2.0); WBC,Urine 4 /hpf (0-5)
[2018-06-25 22:34] LABS: Ketones,Urine 3+ (Negative)
[2018-06-26] MEDS: SODIUM CHLORIDE 0.9% 1,000 ML IV SCH ×2 (00:22→09:47)
[2018-06-26] MEDS ORDERED: cloNIDine HCL 0.1 MG TAB PO PRN (01:01)
[2018-06-26 06:57] LABS: Glucose,Whole Blood 186 mg/dL (75-99)
[2018-06-26] MEDS: ONDANSETRON 4 MG/2 ML VIAL IVP PRN ×2 (07:21→13:36)
[2018-06-26] MEDS ORDERED: GLIMEPIRIDE 2 MG TAB PO SCH (07:30)
--- NOTE | 2018-06-26 07:36 | HP ---
HISTORY AND PHYSICAL DATE OF SERVICE: 06/25/2018. CHIEF COMPLAINTS: Vomiting and gastrointestinal bleed. HISTORY OF PRESENT ILLNESS: This 38-year-old gentleman with a past medical history of multiple medical problems including history of diabetes mellitus, history of bleeding ulcer, gastritis, Crohn disease, MRSA being followed by Dr. Oliva in the outpatient setting, was complaining of vomiting. The patient is unable to keep anything down. Patient has history of smoking marijuana. The patient also had history of apparent GI bleeding and hematemesis. Also the patient came to [facility] and was admitted for further evaluation and treatment. The blood pressure is also elevated to 141/101. Otherwise, the labs were noted. WBC is 14.8. There is no history of fever, rigors, headache, loss of consciousness, chest pain, palpitations at this time. PAST MEDICAL HISTORY: History of diabetes mellitus, history of bleeding ulcer, gastritis, Crohn's, history of MRSA. MEDICATIONS: Prior to admission: 1. Januvia 100 mg p.o. daily. 2. Protonix 40 mg daily. 3. Zofran 4 mg q.6h p.r.n. 4. Reglan 10 mg p.o. t.i.d. 5. Zestril 2.5 mg daily. 6. Amaryl 2 mg before breakfast. 7. Lipitor 40 mg q.h.s. ALLERGIES: None. FAMILY HISTORY: History of skin, breast and uterine cancer. SOCIAL HISTORY: History of continued ongoing smoking. No history of alcohol. History of THC. REVIEW OF SYSTEMS: ENT: No diminished hearing or vision. CARDIOVASCULAR: No angina or palpitations. RESPIRATORY: As mentioned earlier. GI: Mentioned earlier. : No dysuria. NERVOUS SYSTEM: No numbness or weakness. ALLERGY/IMMUNOLOGY: No history of asthma. MUSCULOSKELETAL: As mentioned earlier. HEMATOLOGY/ONCOLOGY: No history of anemia. ENDOCRINE: As mentioned earlier. CONSTITUTIONAL: As mentioned earlier. DERMATOLOGY: Negative. RHEUMATOLOGY Negative. PSYCHIATRY: As mentioned earlier. PHYSICAL EXAMINATION: Alert and oriented x3. Pulse 83, blood pressure 168/92, respirations 16, temperature 97.2, pulse ox 99% on room air. HEENT: Conjunctivae normal. Oral mucosa dry. Neck is no jugular venous distention. No carotid bruit. No lymph node enlargement. CARDIOVASCULAR: S1, S2. No S3, no S4. RESPIRATORY: Breath sounds diminished in the bases. Scattered rhonchi and crackles. ABDOMEN: Soft. Nontender. No mass palpable. Mild diffuse discomfort. No guarding. No rigidity. Bowel sounds normal. No ascites. LEGS: No edema. No swelling. NERVOUS SYSTEM: Higher functions as mentioned earlier. Moves all 4 limbs. No focal motor sensory deficits. LYMPHATICS: No lymphadenopathy in the neck, axillae, groin. SKIN: No ulcers. JOINTS: No active deforming arthropathy. LAB STUDIES: WBC 14.8, hemoglobin 14.5, glucose 243, 169, 172. UA noted. ASSESSMENT: 1. Upper gastrointestinal bleeding and hematemesis for evaluation. 2. Vomiting possibly gastroparesis, acute gastritis acute exacerbation. 3. Hypertensive urgency. 4. Diabetes mellitus type 2. 5. History of bleeding ulcers. 6. History of Crohn disease. 7. History of MRSA. 8. History of left arm surgery and skin graft. 9. History of nicotine dependence. 10.History of THC. RECOMMENDATIONS AND DISCUSSION: This 38-year-old gentleman who presented with multiple complex medical issues, will monitor the patient closely. Continue the current management and symptomatic treatment. Otherwise at this time I recommend continue with symptomatic treatment. Proton pump inhibitors. Gastroenterology consultation. Otherwise patient had gastric emptying study in 2018 which showed only clearance of 2% with gastroparesis. Otherwise an abdominal pelvis CAT scan was also done, which recently showed no acute abnormality. Overall prognosis guarded because of multiple complex medical issues. Further recommendations to follow. See orders for details. A copy of dictation forwarded to Dr. Oliva who is the primary physician. MMODL / IJN: [id number] /
--- NOTE | 2018-06-26 07:47 | XR ---
EXAMINATION TYPE: XR chest 1V portable DATE OF EXAM: 06/26/2018 HISTORY: chf. REFERENCE: NONE. FINDINGS: The lungs are clear. Pleural space are clear. Heart is not enlarged. IMPRESSION: NO ACTIVE INTRATHORACIC DISEASE.
[2018-06-26 07:55] LABS: Anion Gap 10 mmol/L; Blood Urea Nitrogen 11 mg/dL (9-20); Calcium 9.3 mg/dL (8.4-10.2); Carbon Dioxide 26 mmol/L (22-30); Chloride 104 mmol/L (98-107); Glucose 187 mg/dL (74-99); Potassium 4.1 mmol/L (3.5-5.1); Sodium 140 mmol/L (137-145)
[2018-06-26 08:10] LABS: Basophils % (A) 0 %; Eosinophils % (A) 0 %; HCT 42.2 % (39.0-53.0); HGB 14.3 gm/dL (13.0-17.5); Lymphocytes # (A) 1.3 k/uL (1.0-4.8); Lymphocytes % (A) 12 %; MCH 29.4 pg (25.0-35.0); MCHC 33.9 g/dL (31.0-37.0); MCV 86.6 fL (80.0-100.0); Mean Platelet Volume 7.6; Monocytes # (A) 0.4 k/uL (0-1.0); Monocytes % (A) 4 %; Neutrophils # (A) 8.7 k/uL (1.3-7.7); Neutrophils % (A) 83 %; Platelet Count 224 k/uL (150-450); RBC 4.87 m/uL (4.30-5.90); RDW 14.5 % (11.5-15.5); WBC 10.5 k/uL (3.8-10.6)
[2018-06-26] MEDS: INSULIN ASPART (NovoLOG) 100 UNIT/ML VIAL SQ SCH ×2 (08:30→13:14)
[2018-06-26] MEDS ORDERED: LISINOPRIL 2.5 MG TAB PO SCH (09:00)
[2018-06-26] MEDS ORDERED: LINAGLIPTIN 5 MG TABLET PO SCH (09:00)
[2018-06-26] MEDS: HEPARIN SODIUM,PORCINE 5,000 UNIT/ML 1 ML VIAL SQ SCH (09:47)
[2018-06-26] MEDS: PANTOPRAZOLE 40 MG/10 ML VIAL IVP SCH (09:47)
[2018-06-26] MEDS: METOCLOPRAMIDE 10 MG TAB PO SCH (09:50)
[2018-06-26 11:41] LABS: Glucose,Whole Blood 179 mg/dL (75-99)
--- NOTE | 2018-06-26 13:45 | CONS ---
CONSULTATION DATE OF SERVICE: June 26, 2018 REQUESTING PHYSICIAN: Dr. Jamison. REASON FOR CONSULTATION: Nausea and vomiting, and coffee-grounds emesis. HISTORY OF PRESENT ILLNESS: The patient is a 38 -year-old pleasant white male with history of longstanding history of diabetes mellitus type 1, who was recently diagnosed with diabetic gastroparesis, was admitted to the hospital because of acute onset of severe intense nausea that started on Wednesday. Yesterday morning he had several episodes of emesis and towards the evening he had 2 episodes of initially coffee-ground and subsequently 1 episode of hematemesis. His became extremely concerned, brought him to the emergency room and subsequently admitted to the hospital for further evaluation. His initial hemoglobin was 14.5 and this morning it is 14.2 g/dL. He did not have any episodes of emesis in the last 12 hours. The patient had multiple hospitalizations over the last 2 years with diabetic gastroparesis. The last time was 2 weeks ago. In fact, he was recently sent to [facility] where in he is undergoing further evaluation. He has been maintained on Reglan as well as Protonix at home on an outpatient basis. He denies any abdominal pain. No rectal bleeding or melena. PAST MEDICAL HISTORY: Significant for diabetes mellitus diagnosed 12 years ago, hypertension, hyperlipidemia, diabetic gastroparesis. MEDICATIONS: At home Januvia, Protonix, Zofran, Reglan, Zestril, Lipitor, Amaryl. ALLERGIES: None. SOCIAL HISTORY: No smoking. No alcohol use. FAMILY HISTORY: Mom had breast cancer as well as uterine cancer. Father had skin cancer. REVIEW OF SYSTEMS: Cardiopulmonary: No chest pain, shortness of breath. : No dysuria or hematuria. MUSCULOSKELETAL: He complains of chronic low back pain. NEUROLOGY unremarkable. PSYCHIATRIC unremarkable. ENT/vision unremarkable. ENDOCRINE: Severe diabetes type 1 diabetes mellitus as mentioned above. CONSTITUTIONAL: No recent weight loss. No fever, chills, night sweats. PHYSICAL EXAMINATION: He appears comfortable. No apparent distress. Vital signs stable. Blood pressure is 175/101, pulse rate 94, temperature 98. HEENT examination unremarkable. Conjunctivae pink. Sclerae anicteric. Oral cavity no lesions. NECK: No JVD or lymph node enlargement. CHEST: Clear to auscultation. HEART: Regular rate and rhythm. ABDOMEN was soft, nontender, nondistended. Bowel sounds are positive. EXTREMITIES: No pedal edema. SKIN no rashes. NEUROLOGIC: Alert and oriented x3. No focal deficits. LAB: At the time of admission to the hospital yesterday: WBC 14.8 and today it is 10.5. Hemoglobin stable at 14.3 g/dL. BUN and creatinine are within normal limits. Blood sugar 243 yesterday and 187 today. AST, ALT, total bilirubin and alkaline phosphatase are normal. Occult blood in the emesis was positive. IMPRESSION: 1. This is a patient with longstanding history of diabetes mellitus and history of diabetic gastroparesis, admitted to the hospital with severe nausea, vomiting for the last 2 days duration. He had several episodes of bilious emesis followed by some coffee-grounds emesis and 1 episode of hematemesis yesterday most likely as a result of Morenita-Espinoza tear from intense nausea vomiting. His hemoglobin presently remained stable at 14.3 g/dL. Since being in the hospital, he did not have any further episodes of hematemesis. In fact, the nausea has significantly improved. 2. Longstanding history of diabetes mellitus. 3. History of hypertension and hypercholesteremia. RECOMMENDATIONS: 1. Continue with IV Protonix 40 mg q.12 hours. 2. Continue with IV Reglan and Zofran as needed. 3. Start him on a clear liquid diet and if he is able to tolerate it, he can be discharged home today. 4. No need for any endoscopy workup at the present time. Thank you for this consultation. MMODL / IJN: [id number] /
[2018-06-26 14:35] VITALS: BP 166/88; PULSE 88; RESP 16; TEMP 98.6
--- NOTE | 2018-06-27 05:54 | DS ---
DISCHARGE SUMMARY FINAL DIAGNOSES: 1. Upper gastrointestinal bleeding with hematemesis, possibly secondary to gastroparesis and acute gastritis, acute exacerbation. 2. Hypertensive urgency. 3. Diabetes mellitus type 2. 4. History of bleeding ulcers. 5. History of Crohn disease. 6. History of methicillin-resistant Staphylococcus aureus. 7. History of left arm surgery and skin graft. 8. History of nicotine dependence. 9. History of THC. DISCHARGE DISPOSITION: The patient will be discharged in stable condition with guarded prognosis. The patient is extremely keen on going home and Dr. Rosales cleared the patient for discharge. HISTORY OF PRESENT ILLNESS: This 38-year-old gentleman with a past medical history of multiple medical problems as mentioned being followed by Dr. Oliva in the outpatient setting admitted with, hematemesis and multiple other symptomatology. The patient was treated symptomatically. The hemoglobin was stable around 14.3. On exam, vitals are stable. CARDIOVASCULAR: S1 and S2 muffled. ABDOMEN: Soft, nontender. NERVOUS SYSTEM: No focal deficits. The patient is extremely keen on going home. The patient discharged home in stable condition with guarded prognosis. The patient also has plans to follow up with [facility] GI DISCHARGE ADVICE: 1. Diet is full liquids, advance to soft bland if tolerated. 2. Amaryl 2 mg a.c. breakfast. 3. Januvia 100 mg p.o. daily. 4. Lipitor 40 mg q.h.s. 5. Protonix 40 mg p.o. daily. 6. Zestril 2.5 mg daily. 7. Catapres 0.1 p.o. b.i.d. 8. Reglan 10 mg p.o. t.i.d. p.r.n. 9. Zofran 4 mg q.6 p.r.n. Follow up with Dr. Rosales as advised. Once again, the patient discharged in a stable condition with guarded prognosis. MMODL / IJN: [id number] / MTDD
== END 2018-06-26 16:45 | disposition home or self-care (01) ==
LOC: EC 08:58 → 4SSUR 10:49 → 4MS4W 06-26 15:30 → 4SSUR 06-26 15:32
PROVIDERS: ADMIT Hospitalist; ATTEND Hospitalist
DX: K92.2 Gastrointestinal hemorrhage, unspecified (principal); K92.0 Hematemesis; I16.0 Hypertensive urgency; E11.43 Type 2 diabetes mellitus with diabetic autonomic (poly)neuropathy; K29.01 Acute gastritis with bleeding; I10 Essential (primary) hypertension; E78.5 Hyperlipidemia, unspecified; K31.84 Gastroparesis; Z86.14 Personal history of Methicillin resistant Staphylococcus aureus infection; Z87.891 Personal history of nicotine dependence; Z79.84 Long term (current) use of oral hypoglycemic drugs; Z79.899 Other long term (current) drug therapy; Z80.8 Family history of malignant neoplasm of other organs or systems; Z80.3 Family history of malignant neoplasm of breast; Z82.49 Family history of ischemic heart disease and other diseases of the circulatory system
CPT/HCPCS: 96376 ×3; 96372 ×2; 96361; 96374; 96375; 99285; 36415; 86900; 86901; 80053; 80048; 83735; 84484; 85025 ×2; 85610; 85730; 86850; 82271; 81001; 71045; G0378 ×2; J2060; J1644 ×2; J2405 ×2; C9113 ×2

== ENCOUNTER 2018-09-30 21:39 | Observation (INO) | payer OTHER ==
[2018-09-30] MEDS ORDERED: SODIUM CHLORIDE 0.9% 500 ML 500 ML IV STA (21:58)
[2018-09-30] MEDS ORDERED: MORPHINE SULFATE 2 MG/ML SYRINGE IVP STA (21:58)
[2018-09-30] MEDS ORDERED: SODIUM CHLORIDE 0.9% 1,000 ML IV STA (21:58)
[2018-09-30] MEDS ORDERED: ONDANSETRON 4 MG/2 ML VIAL IVP STA ×2 (21:58→23:49)
[2018-09-30 22:44] LABS: Basophils % (A) 0 %; Eosinophils % (A) 0 %; HCT 39.8 % (39.0-53.0); HGB 13.6 gm/dL (13.0-17.5); Lymphocytes # (A) 0.9 k/uL (1.0-4.8); Lymphocytes % (A) 6 %; MCH 29.2 pg (25.0-35.0); MCHC 34.3 g/dL (31.0-37.0); MCV 85.2 fL (80.0-100.0); Mean Platelet Volume 8.5; Monocytes # (A) 0.6 k/uL (0-1.0); Monocytes % (A) 4 %; Neutrophils # (A) 14.1 k/uL (1.3-7.7); Neutrophils % (A) 90 %; Platelet Count 211 k/uL (150-450); RBC 4.67 m/uL (4.30-5.90); RDW 14.6 % (11.5-15.5); WBC 15.8 k/uL (3.8-10.6)
[2018-09-30] MEDS ORDERED: HYDROmorphone 0.5 MG/0.5 ML SYRINGE IVP STA ×2 (22:53→23:49)
[2018-09-30 22:54] LABS: ALT 32 U/L (21-72); AST 24 U/L (17-59); African American GFR (CKD) >90 (>60 ml/min/1.73 sqM); Albumin 4.4 g/dL (3.5-5.0); Alkaline Phosphatase 192 U/L (38-126); Amylase 40 U/L (30-110); Anion Gap 14 mmol/L; Blood Urea Nitrogen 13 mg/dL (9-20); Calcium 9.6 mg/dL (8.4-10.2); Carbon Dioxide 23 mmol/L (22-30); Chloride 104 mmol/L (98-107); Glucose 203 mg/dL (74-99); Non-African American GFR(CKD) >90 (>60 ml/min/1.73 sqM); Potassium 3.5 mmol/L (3.5-5.1); Sodium 141 mmol/L (137-145); Total Bilirubin 1.2 mg/dL (0.2-1.3); Total Protein 7.4 g/dL (6.3-8.2)
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
[2018-09-30] MEDS: SODIUM CHLORIDE 0.9% 1,000 ML IV SCH (23:58)
[2018-10-01] MEDS ORDERED: METOCLOPRAMIDE 5 MG/ML 2 ML VIAL IVP STA (00:23)
[2018-10-01] MEDS ORDERED: PROCHLORPERAZINE 5 MG TAB PO PRN (00:24)
[2018-10-01] MEDS ORDERED: NALOXONE 0.4 MG/ML 1 ML VIAL IV PRN (00:24)
[2018-10-01] MEDS ORDERED: ONDANSETRON 4 MG/2 ML VIAL IVP PRN (00:24)
[2018-10-01 01:49] VITALS: BMI 26.5
[2018-10-01] MEDS: HYDROmorphone 0.5 MG/0.5 ML SYRINGE IVP PRN ×5 (02:03→19:29)
[2018-10-01 02:05] LABS: Appearance,Urine Clear (Clear); Bilirubin,Urine Negative (Negative); Blood,Urine Negative (Negative); Color,Urine Yellow; Glucose,Urine (UA) 4+ (Negative); Leukocyte Esterase,Urine Negative (Negative); Nitrite,Urine Negative (Negative); PH, Urine 7.5 (5.0-8.0); Protein,Urine Negative (Negative); Specific Gravity,Urine 1.018 (1.001-1.035); Urobilinogen,Urine <2.0 mg/dL (<2.0)
[2018-10-01 02:12] LABS: Ketones,Urine 3+ (Negative)
[2018-10-01 02:19] LABS: Glucose,Whole Blood 206 mg/dL (75-99)
[2018-10-01] MEDS: ONDANSETRON 4 MG/2 ML VIAL IVP PRN ×2 (06:17→12:29)
[2018-10-01 07:19] LABS: Glucose,Whole Blood 203 mg/dL (75-99)
[2018-10-01] MEDS: INSULIN ASPART (NovoLOG) 100 UNIT/ML VIAL SQ SCH ×4 (07:31→21:36)
[2018-10-01] MEDS: METOCLOPRAMIDE 10 MG TAB PO SCH ×2 (07:31→16:15)
[2018-10-01] MEDS: cloNIDine HCL 0.1 MG TAB PO SCH ×2 (07:32→20:20)
[2018-10-01] MEDS: LISINOPRIL 2.5 MG TAB PO SCH (07:32)
[2018-10-01] MEDS: PANTOPRAZOLE 40 MG TABLET PO SCH (07:32)
[2018-10-01] MEDS: GLIMEPIRIDE 2 MG TAB PO SCH (07:32)
[2018-10-01 12:11] LABS: Glucose,Whole Blood 195 mg/dL (75-99)
[2018-10-01] MEDS: SODIUM CHLORIDE 0.9% 1,000 ML IV SCH (12:29)
[2018-10-01] MEDS: LINAGLIPTIN 5 MG TABLET PO SCH (14:04)
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
[2018-10-01 17:07] LABS: Glucose,Whole Blood 210 mg/dL (75-99)
[2018-10-01] MEDS: ENOXAPARIN 40 MG/0.4 ML SYRINGE SQ SCH (17:16)
[2018-10-01] MEDS: METOCLOPRAMIDE 5 MG/ML 2 ML VIAL IVP PRN (19:28)
[2018-10-01] MEDS: ATORVASTATIN 40 MG TAB PO SCH (20:21)
[2018-10-01 21:15] LABS: Glucose,Whole Blood 178 mg/dL (75-99)
[2018-10-02] MEDS: METOCLOPRAMIDE 5 MG/ML 2 ML VIAL IVP PRN ×4 (02:15→20:40)
[2018-10-02] MEDS: HYDROmorphone 0.5 MG/0.5 ML SYRINGE IVP PRN (02:16)
[2018-10-02] MEDS: SODIUM CHLORIDE 0.9% 1,000 ML IV SCH ×2 (02:23→14:45)
[2018-10-02] MEDS: ONDANSETRON 4 MG/2 ML VIAL IVP PRN ×4 (05:33→23:41)
[2018-10-02 07:14] LABS: Glucose,Whole Blood 212 mg/dL (75-99)
[2018-10-02] MEDS: LINAGLIPTIN 5 MG TABLET PO SCH (07:26)
[2018-10-02] MEDS: cloNIDine HCL 0.1 MG TAB PO SCH ×2 (07:26→20:40)
[2018-10-02] MEDS: LISINOPRIL 2.5 MG TAB PO SCH (07:26)
[2018-10-02] MEDS: PANTOPRAZOLE 40 MG TABLET PO SCH (07:26)
[2018-10-02] MEDS: INSULIN ASPART (NovoLOG) 100 UNIT/ML VIAL SQ SCH ×4 (07:26→20:41)
[2018-10-02] MEDS: GLIMEPIRIDE 2 MG TAB PO SCH (07:29)
[2018-10-02] MEDS: ENOXAPARIN 40 MG/0.4 ML SYRINGE SQ SCH (07:35)
[2018-10-02 08:13] LABS: Basophils % (A) 0 %; Eosinophils % (A) 0 %; HCT 39.4 % (39.0-53.0); HGB 13.6 gm/dL (13.0-17.5); Lymphocytes # (A) 1.2 k/uL (1.0-4.8); Lymphocytes % (A) 9 %; MCH 29.3 pg (25.0-35.0); MCHC 34.6 g/dL (31.0-37.0); MCV 84.8 fL (80.0-100.0); Monocytes # (A) 0.6 k/uL (0-1.0); Monocytes % (A) 5 %; Neutrophils # (A) 10.8 k/uL (1.3-7.7); Neutrophils % (A) 85 %; Platelet Count 222 k/uL (150-450); RBC 4.64 m/uL (4.30-5.90); RDW 14.3 % (11.5-15.5); WBC 12.7 k/uL (3.8-10.6)
[2018-10-02 08:42] LABS: African American GFR (CKD) >90 (>60 ml/min/1.73 sqM); Anion Gap 11 mmol/L; Blood Urea Nitrogen 12 mg/dL (9-20); Calcium 9.3 mg/dL (8.4-10.2); Carbon Dioxide 26 mmol/L (22-30); Chloride 101 mmol/L (98-107); Glucose 185 mg/dL (74-99); Non-African American GFR(CKD) >90 (>60 ml/min/1.73 sqM); Potassium 3.8 mmol/L (3.5-5.1); Sodium 138 mmol/L (137-145)
[2018-10-02 12:00] LABS: Glucose,Whole Blood 181 mg/dL (75-99)
--- NOTE | 2018-10-02 14:08 | P.PN ---
Subjective Progress Note Date: 10/02/18 Principal diagnosis: Intractable nausea and vomiting Mr. Morton is a 38-year-old male with a past medical history of diabetes mellitus, recent diagnosis of Crohn's disease, gastroparesis admitted to the hospital with a chief complaint of intractable nausea and vomiting. The patient states that he has on and off episodes of this intractable nausea and vomiting. At home he takes Zofran and Reglan and Protonix and promethazine on when necessary basis. In spite of taking all these medications he states that he has been throwing up for the past 1-2 days. He is not able to keep anything down. Patient has history of diabetes mellitus which is under good control with the last hemoglobin A1c around 6-7. Patient had gastric emptying studies done showing gastroparesis. He states that he was recently diagnosed with Crohn's disease but does not have her GI doctor that he follows with. He follows with his PCP Dr. Oliva. On 10/02/2018-as per nursing staff report patient has been requiring Reglan and Zofran pretty much around the clock. He is still nauseous and is throwing up. Patient complains of mild lower abdominal pain. He denies having any diarrhea or constipation. Patient denies having any fevers chills or rigors. No dysuria or hematuria. No chest pain or palpitations. As the patient's blood pressure is high, he was given his by mouth blood pressure medications that he was able to keep them down. He wants to try clear liquids today and see. Objective - Vital Signs Vital signs: Vital Signs Temp 98.2 F 10/02/18 05:22 Pulse 79 10/02/18 05:22 Resp 16 10/02/18 05:22 BP 160/96 10/02/18 05:22 Pulse Ox 98 10/02/18 05:22 Intake & Output 10/01/18 10/02/18 10/02/18 18:59 06:59 18:59 Intake Total 200 Output Total 3 Balance 197 Intake: Oral 200 Output: Emesis 3 Other: # Voids 1 2 - Exam On physical examination, patient appears comfortable in no apparent distress. HEAD: Normocephalic, atraumatic. EYES: No scleral icterus. No conjunctival injection. MOUTH: No lesions, tongue midline. NECK: Trachea midline, no gross abnormalities. CHEST: Clear to auscultation with no wheezing or rhonchi appreciated. HEART: Regular rate and rhythm. ABDOMEN: Soft, diffusely tender to palpation. Bowel sounds are normal. No organomegaly. No guarding or rigidity. EXTREMITIES: No pedal edema. SKIN: No rashes, no jaundice. NEUROLOGIC: Alert and oriented x3. No focal deficits. - Labs CBC & Chem 7: 10/02/18 07:24 10/02/18 07:24 Labs: Abnormal Lab Results - Last 24 Hours (Table) 10/01/18 10/01/18 10/02/18 Range/Units 16:41 21:12 07:11 WBC (3.8-10.6) k/uL Neutrophils # (1.3-7.7) k/uL Glucose (74-99) mg/dL POC Glucose (mg/dL) 210 H 178 H 212 H (75-99) mg/dL 10/02/18 10/02/18 10/02/18 Range/Units 07:24 07:24 11:47 WBC 12.7 H (3.8-10.6) k/uL Neutrophils # 10.8 H (1.3-7.7) k/uL Glucose 185 H (74-99) mg/dL POC Glucose (mg/dL) 181 H (75-99) mg/dL Assessment and Plan Assessment: Assessment: Intractable nausea vomiting or abdominal pain secondary to diabetic gastroparesis Leukocytosis - probably reactive - trending down Diabetes type 2 [id number] Uncontrolled hypertension Recent diagnosis of Crohn's disease Marijuana use History of gastric ulcers Nicotine addiction DVT prophylaxis Plan: We will continue with IV hydration. Symptomatic management for nausea and vomiting with Zofran and Reglan. As the patient thinks he is ready to try clear liquids, will give him a trial of clear liquids. Further recommendations depending on the progress of the patient.
[2018-10-02 16:28] LABS: Glucose,Whole Blood 150 mg/dL (75-99)
[2018-10-02 20:12] LABS: Glucose,Whole Blood 151 mg/dL (75-99)
[2018-10-02] MEDS: ATORVASTATIN 40 MG TAB PO SCH (20:40)
[2018-10-03] MEDS: METOCLOPRAMIDE 5 MG/ML 2 ML VIAL IVP PRN (03:09)
[2018-10-03] MEDS: SODIUM CHLORIDE 0.9% 1,000 ML IV SCH (06:09)
[2018-10-03] MEDS: ONDANSETRON 4 MG/2 ML VIAL IVP PRN (06:12)
[2018-10-03 07:01] LABS: Glucose,Whole Blood 168 mg/dL (75-99)
[2018-10-03] MEDS: cloNIDine HCL 0.1 MG TAB PO SCH (07:55)
[2018-10-03] MEDS: LISINOPRIL 2.5 MG TAB PO SCH (07:55)
[2018-10-03] MEDS: INSULIN ASPART (NovoLOG) 100 UNIT/ML VIAL SQ SCH ×2 (07:55→12:56)
[2018-10-03] MEDS: PANTOPRAZOLE 40 MG TABLET PO SCH (07:55)
[2018-10-03] MEDS: ENOXAPARIN 40 MG/0.4 ML SYRINGE SQ SCH (07:56)
[2018-10-03] MEDS: LINAGLIPTIN 5 MG TABLET PO SCH (07:56)
[2018-10-03] MEDS: GLIMEPIRIDE 2 MG TAB PO SCH (07:59)
[2018-10-03 11:07] LABS: Basophils % (A) 0 %; Eosinophils % (A) 0 %; HCT 39.8 % (39.0-53.0); HGB 13.5 gm/dL (13.0-17.5); Lymphocytes # (A) 1.4 k/uL (1.0-4.8); Lymphocytes % (A) 11 %; MCH 28.6 pg (25.0-35.0); MCHC 33.9 g/dL (31.0-37.0); MCV 84.3 fL (80.0-100.0); Mean Platelet Volume 7.8; Monocytes # (A) 0.7 k/uL (0-1.0); Monocytes % (A) 6 %; Neutrophils # (A) 10.2 k/uL (1.3-7.7); Neutrophils % (A) 81 %; Platelet Count 230 k/uL (150-450); RBC 4.72 m/uL (4.30-5.90); WBC 12.5 k/uL (3.8-10.6)
[2018-10-03 11:25] LABS: African American GFR (CKD) >90 (>60 ml/min/1.73 sqM); Anion Gap 10 mmol/L; Blood Urea Nitrogen 11 mg/dL (9-20); Carbon Dioxide 29 mmol/L (22-30); Chloride 97 mmol/L (98-107); Glucose 173 mg/dL (74-99); Non-African American GFR(CKD) >90 (>60 ml/min/1.73 sqM); Potassium 3.6 mmol/L (3.5-5.1); Sodium 136 mmol/L (137-145)
--- NOTE | 2018-10-03 11:54 | P.DS ---
Providers Date of admission: 10/01/18 00:49 Expected date of discharge: 10/03/18 Attending physician: Iban Jamison Primary care physician: Naz Oliva [facility] Course: Mr. Morton is a 38-year-old male with a past medical history of diabetes mellitus, recent diagnosis of Crohn's disease, gastroparesis admitted to the hospital with a chief complaint of intractable nausea and vomiting. The patient states that he has on and off episodes of this intractable nausea and vomiting. At home he takes Zofran and Reglan and Protonix and promethazine on when necessary basis. In spite of taking all these medications he states that he has been throwing up for the past 1-2 days. He is not able to keep anything down. Patient has history of diabetes mellitus which is under good control with the last hemoglobin A1c around 6-7. Patient had gastric emptying studies done showing gastroparesis. He states that he was recently diagnosed with Crohn's disease but does not have her GI doctor that he follows with. He follows with his PCP Dr. Oliva. During the hospital stay, he was treated symptomatically with Zofran and Reglan [id number] after which his symptoms of nausea and vomiting improved. This morning patient was able to tolerate clear liquids. He states that history to go home and back to his baseline. Patient's vital signs and labs have been reviewed. On physical examination, patient appears comfortable in no apparent distress. HEAD: Normocephalic, atraumatic. EYES: No scleral icterus. No conjunctival injection. MOUTH: No lesions, tongue midline. NECK: Trachea midline, no gross abnormalities. CHEST: Clear to auscultation with no wheezing or rhonchi appreciated. HEART: Regular rate and rhythm. ABDOMEN: Soft, diffusely tender to palpation. Bowel sounds are positive. No organomegaly. No guarding or rigidity. EXTREMITIES: No pedal edema. SKIN: No rashes, no jaundice. NEUROLOGIC: Alert and oriented x3. No focal deficits. DISCHARGE DIAGNOSIS Intractable nausea vomiting or abdominal pain secondary to diabetic gastroparesis Leukocytosis - probably reactive Diabetes type 2 [id number] Uncontrolled hypertension Recent diagnosis of Crohn's disease Marijuana use History of gastric ulcers Nicotine addiction DVT prophylaxis PLAN: As the patient is tolerating oral diet. His being discharged home in a stable condition. Advised to follow-up with his primary care physician Dr. Carlos corey in 2-3 days. Patient Condition at Discharge: Stable Plan - Discharge Summary Discharge Rx Participant: No New Discharge Prescriptions: Continue sitaGLIPtin [Januvia] 100 mg PO DAILY Metoclopramide [Reglan] 10 mg PO TID #20 tab Glimepiride [Amaryl] 2 mg PO AC-BRKFST Pantoprazole Sodium [Protonix] 40 mg PO DAILY Atorvastatin [Lipitor] 40 mg PO HS Lisinopril [Zestril] 2.5 mg PO DAILY cloNIDine HCL [Catapres] 0.1 mg PO BID #60 tab Ondansetron Odt [Zofran ODT] 4 mg PO Q6H PRN #30 PRN Reason: Nausea Discharge Medication List sitaGLIPtin [Januvia] 100 mg PO DAILY 02/15/18 [History] Metoclopramide [Reglan] 10 mg PO TID #20 tab 02/17/18 [Rx] Glimepiride [Amaryl] 2 mg PO AC-BRKFST 03/17/18 [History] Pantoprazole Sodium [Protonix] 40 mg PO DAILY 05/23/18 [History] Atorvastatin [Lipitor] 40 mg PO HS 06/25/18 [History] Lisinopril [Zestril] 2.5 mg PO DAILY 06/25/18 [History] Ondansetron Odt [Zofran ODT] 4 mg PO Q6H PRN #30 06/26/18 [Rx] cloNIDine HCL [Catapres] 0.1 mg PO BID #60 tab 06/26/18 [Rx] Follow up Appointment(s)/Referral(s): Naz Oliva DO [Primary Care Provider] - 1-2 days Patient Instructions/Handouts: Type 2 Diabetes in Adults: New Diagnosis (DC) Discharge Disposition: HOME SELF-CARE
[2018-10-03 12:48] LABS: Glucose,Whole Blood 146 mg/dL (75-99)
[2018-10-03 13:16] VITALS: BP 135/82; PULSE 84; RESP 16; TEMP 98.8
== END 2018-10-03 14:08 | disposition home or self-care (01) ==
LOC: EC 21:39 → 4MS4W 10-01 00:49
PROVIDERS: ADMIT Hospitalist; ATTEND Hospitalist
DX: E11.43 Type 2 diabetes mellitus with diabetic autonomic (poly)neuropathy (principal); K31.84 Gastroparesis; E86.0 Dehydration; G43.A0 Cyclical vomiting, in migraine, not intractable; E11.65 Type 2 diabetes mellitus with hyperglycemia; K50.90 Crohn's disease, unspecified, without complications; D72.829 Elevated white blood cell count, unspecified; I10 Essential (primary) hypertension; F12.90 Cannabis use, unspecified, uncomplicated; F17.200 Nicotine dependence, unspecified, uncomplicated; Z79.84 Long term (current) use of oral hypoglycemic drugs; Z86.14 Personal history of Methicillin resistant Staphylococcus aureus infection; Z79.899 Other long term (current) drug therapy; Z87.11 Personal history of peptic ulcer disease; Z82.49 Family history of ischemic heart disease and other diseases of the circulatory system; Z80.3 Family history of malignant neoplasm of breast; Z80.49 Family history of malignant neoplasm of other genital organs; Z80.8 Family history of malignant neoplasm of other organs or systems
CPT/HCPCS: 96376 ×4; 96361 ×5; 96374; 96375 ×2; 99284; 36415; 80053; 80048 ×2; 82150; 82009; 83690; 85025 ×3; 81003; 87040; G0378 ×3; J2765 ×3; J2405 ×4; J2270; J1170 ×3

== ENCOUNTER 2018-11-09 20:49 | Observation (INO) | payer OTHER ==
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
[2018-11-09] MEDS ORDERED: ONDANSETRON 4 MG/2 ML VIAL IVP STA (21:11)
[2018-11-09] MEDS ORDERED: SODIUM CHLORIDE 0.9% 1,000 ML IV STA (21:11)
[2018-11-09 21:37] LABS: Basophils % (A) 0 %; Eosinophils % (A) 0 %; HCT 40.4 % (39.0-53.0); Lymphocytes # (A) 1.2 k/uL (1.0-4.8); Lymphocytes % (A) 9 %; MCH 27.2 pg (25.0-35.0); MCHC 32.1 g/dL (31.0-37.0); MCV 84.6 fL (80.0-100.0); Monocytes # (A) 0.3 k/uL (0-1.0); Monocytes % (A) 2 %; Neutrophils # (A) 11.8 k/uL (1.3-7.7); Neutrophils % (A) 88 %; Platelet Count 251 k/uL (150-450); RBC 4.77 m/uL (4.30-5.90); RDW 13.5 % (11.5-15.5); WBC 13.4 k/uL (3.8-10.6)
[2018-11-09 21:44] LABS: ALT 27 U/L (21-72); AST 26 U/L (17-59); African American GFR (CKD) >90 (>60 ml/min/1.73 sqM); Albumin 4.5 g/dL (3.5-5.0); Alkaline Phosphatase 141 U/L (38-126); Anion Gap 12 mmol/L; Blood Urea Nitrogen 16 mg/dL (9-20); Calcium 9.7 mg/dL (8.4-10.2); Carbon Dioxide 25 mmol/L (22-30); Chloride 104 mmol/L (98-107); Glucose 218 mg/dL (74-99); Potassium 4.3 mmol/L (3.5-5.1); Sodium 141 mmol/L (137-145); Total Bilirubin 0.9 mg/dL (0.2-1.3); Total Protein 7.7 g/dL (6.3-8.2)
[2018-11-09] MEDS ORDERED: diphenhydrAMINE 50 MG/ML 1 ML VIAL IVP STA (22:03)
[2018-11-09] MEDS ORDERED: FAMOTIDINE 20 MG/2 ML VIAL IV STA (22:52)
[2018-11-09] MEDS ORDERED: METOCLOPRAMIDE 5 MG/ML 2 ML VIAL IVP STA (23:54)
[2018-11-10] MEDS ORDERED: NALOXONE 0.4 MG/ML 1 ML VIAL IV PRN (02:09)
[2018-11-10] MEDS ORDERED: diphenhydrAMINE 50 MG/ML 1 ML VIAL IVP PRN (02:10)
[2018-11-10] MEDS: SODIUM CHLORIDE 0.9% 1,000 ML IV SCH ×3 (02:32→18:30)
[2018-11-10 03:07] LABS: Glucose,Whole Blood 238 mg/dL (75-99)
[2018-11-10] MEDS: ONDANSETRON 4 MG/2 ML VIAL IVP PRN ×3 (05:53→22:17)
[2018-11-10 07:24] LABS: Glucose,Whole Blood 193 mg/dL (75-99)
[2018-11-10] MEDS: METOCLOPRAMIDE 5 MG/ML 2 ML VIAL IVP PRN ×2 (09:53→19:14)
[2018-11-10 11:10] LABS: Glucose,Whole Blood 195 mg/dL (75-99)
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
[2018-11-10] MEDS: INSULIN ASPART (NovoLOG) 100 UNIT/ML VIAL SQ SCH ×3 (12:28→20:22)
[2018-11-10 17:10] LABS: Glucose,Whole Blood 162 mg/dL (75-99)
[2018-11-10] MEDS ORDERED: PANTOPRAZOLE 40 MG TABLET PO SCH (17:30)
[2018-11-10 20:14] LABS: Glucose,Whole Blood 173 mg/dL (75-99)
[2018-11-10] MEDS: PANTOPRAZOLE 40 MG/10 ML VIAL IVP SCH (20:20)
[2018-11-11] MEDS: METOCLOPRAMIDE 5 MG/ML 2 ML VIAL IVP PRN ×4 (01:14→19:48)
[2018-11-11] MEDS: SODIUM CHLORIDE 0.9% 1,000 ML IV SCH ×3 (01:55→21:11)
[2018-11-11] MEDS: ONDANSETRON 4 MG/2 ML VIAL IVP PRN ×3 (04:29→17:17)
[2018-11-11 07:06] LABS: Glucose,Whole Blood 183 mg/dL (75-99)
[2018-11-11 08:25] LABS: Glucose,Whole Blood 215 mg/dL (75-99)
[2018-11-11] MEDS: PANTOPRAZOLE 40 MG/10 ML VIAL IVP SCH ×2 (08:40→21:06)
[2018-11-11] MEDS: INSULIN ASPART (NovoLOG) 100 UNIT/ML VIAL SQ SCH ×4 (08:40→21:06)
[2018-11-11] MEDS: ATORVASTATIN 10 MG TAB PO SCH (08:40)
[2018-11-11] MEDS ORDERED: hydrALAZINE HCL 20 MG/ML 1 ML VIAL IVP STA (10:19)
[2018-11-11] MEDS ORDERED: hydrALAZINE HCL 20 MG/ML 1 ML VIAL IVP PRN (10:25)
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
[2018-11-11 11:54] LABS: Glucose,Whole Blood 186 mg/dL (75-99)
--- NOTE | 2018-11-11 14:59 | P.PN ---
Subjective Progress Note Date: 11/11/18 Principal diagnosis: 38-year-old pleasant male with history of for [id number] diabetes mellitus and recently diagnosed gastroparesis in with multiple episodes of nausea vomiting. Patient is still dry heaving at this time. Patient was prescribed Reglan patient is presently on symptomatically treatment with IV Protonix at this time. Patient denied any fever chills patient denied any abdominal pain significant. Patient does have leukocytosis reactive seconded to nausea vomiting intractable. 11/11/2018 Patient is lying in bed on his stomach in mild acute distress trying to control his nausea. Patient states that he hasn't vomited since this morning and denies any diarrhea but is severely nauseated. Patient is also hypertensive today as he states this usually happens with his exacerbation of gastroparesis. A one- time dose of hydralazine IV push was given. Patient tolerated well. Blood pressure has come down some. Patient denies any chest pains, palpitations, or shortness of breath at this time. Patient is afebrile. GI was consulted and recommends no interventions at this time. Patient is scheduled to have a colonoscopy in 2-3 weeks at [facility]. Patient diet was decreased clear liquids as patient is not wanting to eat at this time. Patient states he is only taking sips of water. Will continue to monitor. Objective - Vital Signs Vital signs: Vital Signs Temp 98.3 F 11/11/18 07:00 Pulse 82 11/11/18 14:24 Resp 18 11/11/18 07:00 BP 155/92 11/11/18 14:24 Pulse Ox 100 11/11/18 07:00 Intake & Output 11/10/18 11/11/18 11/11/18 18:59 06:59 18:59 Intake Total 250 Balance 250 Intake: Intake, IV Titration 250 Amount Sodium Chloride 0.9% 1, 250 000 ml @ 125 mls/hr IV . Q8H [facility] Rx#:[id number] Other: Voiding Method Toilet Urinal # Voids 3 # Emeses 1 - Exam GENERAL: The patient is alert and oriented x3, in acute distress lying on his stomach backwards in the bed. Well developed, well nourished. Patient is in distress because of nausea and states it has subsided for the moment as he was just given an anti-emetic 10 minutes ago. Vital signs are stable. Blood pressure rechecked and was 155/92 with a heart rate of 82. HEENT: Pupils are round and equally reacting to light. EOMI. No scleral icterus. No conjunctival pallor. Normocephalic, atraumatic. No pharyngeal erythema. No thyromegaly. CARDIOVASCULAR: S1 and S2 present. No murmurs, rubs, or gallops. PULMONARY: Chest is clear to auscultation, no wheezing or crackles. ABDOMEN: Soft, mild tenderness upon palpation, nondistended, normoactive bowel sounds. No palpable organomegaly. MUSCULOSKELETAL: No joint swelling or deformity. EXTREMITIES: No cyanosis, clubbing, or pedal edema. NEUROLOGICAL: Gross neurological examination did not reveal any focal deficits. SKIN: No rashes. - Labs CBC & Chem 7: 11/09/18 21:12 11/09/18 21:12 Labs: Abnormal Lab Results - Last 24 Hours (Table) 11/10/18 11/10/18 11/11/18 Range/Units 16:59 20:02 07:01 POC Glucose (mg/dL) 162 H 173 H 183 H (75-99) mg/dL 11/11/18 11/11/18 Range/Units 08:22 11:53 POC Glucose (mg/dL) 215 H 186 H (75-99) mg/dL Assessment and Plan Assessment: -Nausea vomiting: Secondary to diabetic gastroparesis symptomatically treatment with Zofran and Reglan IV, continue with Protonix and IV form. Patient will be discharged after symptomatic improvement. -Leukocytosis reactive in nature -Type 2 diabetes mellitus as patient is not eating anything I'll start him on sliding scale insulin and hold off on by mouth oral hypoglycemic agents. -Nicotine use: Counseling was provided -Marijuana use -DVT prophylaxis early ambulation Recommendations and discussion: Recommend continue current medications, management, and symptomatic treatment. GI saw the patient today with no further recommendations as the patient is scheduled to have a colonoscopy at his normal gastric Dr. at [facility] in 2-3 weeks. Patient is continuing to have nausea at this time and is currently on clear liquids. Will continue to monitor closely. Guarded pr ognosis. Further recommendations to follow. Possible discharge in 24 hours once symptoms improve.
[2018-11-11 17:01] LABS: Glucose,Whole Blood 178 mg/dL (75-99)
[2018-11-11 20:33] LABS: Glucose,Whole Blood 189 mg/dL (75-99)
[2018-11-12] MEDS: ONDANSETRON 4 MG/2 ML VIAL IVP PRN ×2 (00:16→12:54)
[2018-11-12] MEDS: METOCLOPRAMIDE 5 MG/ML 2 ML VIAL IVP PRN ×3 (03:07→17:28)
[2018-11-12] MEDS: SODIUM CHLORIDE 0.9% 1,000 ML IV SCH ×2 (06:27→12:35)
[2018-11-12 07:09] LABS: Glucose,Whole Blood 212 mg/dL (75-99)
[2018-11-12] MEDS: INSULIN ASPART (NovoLOG) 100 UNIT/ML VIAL SQ SCH ×3 (08:31→17:30)
[2018-11-12] MEDS: PANTOPRAZOLE 40 MG/10 ML VIAL IVP SCH (08:31)
[2018-11-12] MEDS: ATORVASTATIN 10 MG TAB PO SCH (08:31)
--- NOTE | 2018-11-12 10:58 | PN ---
PROGRESS NOTE DATE OF DICTATION: 11/12/2018 The patient is a 38-year-old pleasant white male with longstanding history of diabetes mellitus, type 1, and diabetic gastroparesis, admitted to the hospital with intractable nausea and vomiting. He is currently maintained on Protonix, Reglan and Zofran and is feeling a little bit better this morning. He had no episodes of emesis today. He has not had any breakfast so far because of the nausea. He reports no abdominal pain. PHYSICAL EXAMINATION: He appears comfortable. No apparent distress. VITAL SIGNS: Stable. Blood pressure is 167/95, pulse rate 96, temperature 99. HEENT examination unremarkable. Conjunctivae pink. Sclerae anicteric. Oral cavity no lesions. NECK: No JVD or lymph node enlargement. CHEST: Clear to auscultation. HEART: Regular rate and rhythm. ABDOMEN: Soft. Bowel sounds are positive. No organomegaly. EXTREMITIES: No pedal edema. SKIN: No rashes. NEUROLOGIC: Alert and oriented x2. No focal deficits. LABS DONE TODAY: Blood sugar is 212. IMPRESSION: 1. Intractable nausea and vomiting secondary to diabetic gastric paresis, which is gradually improving, presently maintained on Protonix, Reglan and Zofran. 2. Type 1 diabetes mellitus. RECOMMENDATIONS: 1. Start off with small frequent meals today. 2. Continue with Zofran and Reglan alternating with each other. 3. He was advised to follow up with his GI at [facility] following discharge from the hospital. 4. Continue with PPIs. 5. We will follow with you. No plans for any endoscopic intervention at the present time. Thank you for this consultation. MMODL / IJN: [id number] /
--- NOTE | 2018-11-12 11:15 | P.DS ---
Providers Date of admission: 11/10/18 02:11 Attending physician: Iban Jamison Consults: 11/11/18 10:20 Consult Physician Routine Consulting Provider: Mehdi Alba Consult Reason/Comments: intractable vomiting Do you want consulting provider notified?: Yes Primary care physician: Naz Oliva [facility] Course: 38-year-old pleasant male with history of for [id number]-ezeftftbq diabetes mellitus and recently diagnosed gastroparesis in with multiple episodes of nausea vomiting. Patient is still dry heaving at this time. Patient was prescribed Reglan patient is presently on symptomatically treatment with IV Protonix at this time. Patient denied any fever chills patient denied any abdominal pain significant. Patient does have leukocytosis reactive seconded to nausea vomiting intractable. 11/11/2018 Patient is lying in bed on his stomach in mild acute distress trying to control his nausea. Patient states that he hasn't vomited since this morning and denies any diarrhea but is severely nauseated. Patient is also hypertensive today as he states this usually happens with his exacerbation of gastroparesis. A one- time dose of hydralazine IV push was given. Patient tolerated well. Blood pressure has come down some. Patient denies any chest pains, palpitations, or shortness of breath at this time. Patient is afebrile. GI was consulted and recommends no interventions at this time. Patient is scheduled to have a colonoscopy in 2-3 weeks at [facility]. Patient diet was decreased clear liquids as patient is not wanting to eat at this time. Patient states he is only taking sips of water. Will continue to monitor. 11/12/2018 Patient is not nauseous today we will try to start her on start him on diet and advance it to soft diet and if he is able to tolerate patient will be discharged today. PHYSICAL EXAMINATION: GENERAL: The patient is alert and oriented x3, not in any acute distress. Well developed, well nourished. HEENT: Pupils are round and equally reacting to light. EOMI. No scleral icterus. No conjunctival pallor. Normocephalic, atraumatic. No pharyngeal erythema. No thyromegaly. CARDIOVASCULAR: S1 and S2 present. No murmurs, rubs, or gallops. PULMONARY: Chest is clear to auscultation, no wheezing or crackles. ABDOMEN: Soft, nontender, nondistended, normoactive bowel sounds. No palpable organomegaly. MUSCULOSKELETAL: No joint swelling or deformity. EXTREMITIES: No cyanosis, clubbing, or pedal edema. NEUROLOGICAL: Gross neurological examination did not reveal any focal deficits. SKIN: No rashes. Assessment and Plan Assessment: -Nausea vomiting: Secondary to diabetic gastroparesis -Leukocytosis reactive in nature -Type 2 diabetes mellitus, patient will be resumed on his home medications -Nicotine use: Counseling was provided -Marijuana use Patient Condition at Discharge: Stable Plan - Discharge Summary Discharge Rx Participant: No New Discharge Prescriptions: No Action sitaGLIPtin [Januvia] 100 mg PO DAILY Metoclopramide [Reglan] 10 mg PO TID #20 tab Glimepiride [Amaryl] 2 mg PO AC-BRKFST Pantoprazole Sodium [Protonix] 40 mg PO BID Atorvastatin [Lipitor] 10 mg PO DAILY Discharge Medication List sitaGLIPtin [Januvia] 100 mg PO DAILY 02/15/18 [History] Metoclopramide [Reglan] 10 mg PO TID #20 tab 02/17/18 [Rx] Glimepiride [Amaryl] 2 mg PO AC-BRKFST 03/17/18 [History] Pantoprazole Sodium [Protonix] 40 mg PO BID 05/23/18 [History] Atorvastatin [Lipitor] 10 mg PO DAILY 11/10/18 [History] Follow up Appointment(s)/Referral(s): Naz Oliva DO [Primary Care Provider] - 3 Days Patient Instructions/Handouts: Acute Nausea and Vomiting (ED) Discharge Disposition: HOME SELF-CARE
[2018-11-12 12:16] LABS: Glucose,Whole Blood 212 mg/dL (75-99)
[2018-11-12 15:01] VITALS: BP 162/89; PULSE 97; RESP 20; TEMP 98.8
[2018-11-12 16:57] LABS: Glucose,Whole Blood 191 mg/dL (75-99)
== END 2018-11-12 18:55 | disposition home or self-care (01) ==
LOC: EC 20:49 → 4SSUR 11-10 02:11
PROVIDERS: ADMIT Hospitalist; ATTEND Hospitalist
DX: E11.43 Type 2 diabetes mellitus with diabetic autonomic (poly)neuropathy (principal); K31.84 Gastroparesis; Z79.84 Long term (current) use of oral hypoglycemic drugs; F17.200 Nicotine dependence, unspecified, uncomplicated; F12.90 Cannabis use, unspecified, uncomplicated; I10 Essential (primary) hypertension; Z86.14 Personal history of Methicillin resistant Staphylococcus aureus infection; Z87.19 Personal history of other diseases of the digestive system; Z84.89 Family history of other specified conditions; Z82.49 Family history of ischemic heart disease and other diseases of the circulatory system; Z80.3 Family history of malignant neoplasm of breast; Z80.8 Family history of malignant neoplasm of other organs or systems; Z80.49 Family history of malignant neoplasm of other genital organs; Z79.899 Other long term (current) drug therapy
CPT/HCPCS: 96376 ×3; 96375 ×2; 96361; 96374; 99284; 36415; 80053; 83690; 85025; G0378 ×3; J1200; J2765 ×4; J2405 ×4; C9113 ×3

== ENCOUNTER 2020-09-09 07:33 | Day surgery (SDC) | payer OTHER ==
[~2020-09-09 07:33] MED LIST: LACTATED RINGERS 1,000 ML IV SCH; LIDOCAINE 1% (10MG/ML) FOR IV START INTRADERMA PRN
[2020-09-09 08:10] LABS: Glucose,Whole Blood 146 mg/dL (75-99)
[2020-09-09] MEDS ORDERED: PROPOFOL 10 MG/ML 20 ML VIAL IV ONE (09:46)
[2020-09-09] MEDS ORDERED: IV FLUID CONTINUATION 1,000 ML IV ONE (10:16)
[2020-09-09 10:22] VITALS: RESP 16
--- NOTE | 2020-09-09 10:29 | P.PCN ---
Date of Procedure: 09/09/20 Description of Procedure: BRIEF HISTORY: Patient is a 40-year-old male presenting for outpatient colonoscopy for evaluation of occult blood in stool. Patient was seen in the office reporting Hemoccult positive stool. He reports long-standing history of intermittent diarrhea. Generally bowel movements to 3 times daily occasionally he'll have up to 6 bowel movements in a day. He attributed symptoms to IBS. No family history of colon cancer. PROCEDURE PERFORMED: Colonoscopy with biopsy. PREOPERATIVE DIAGNOSIS: Occult blood in stool, altered bowel function. ESTIMATED BLOOD LOSS: Minimal. IV sedation per Anesthesia. PROCEDURE: After informed consent was obtained, the patient, was brought into the endoscopy unit. IV sedation was administered by Anesthesia under continuous monitoring. Digital rectal examination was normal. Initially the Olympus CF-190 flexible video colonoscope was then inserted in the rectum, gradually advanced into the cecum without any difficulty. Careful examination was performed as the scope was gradually being withdrawn. Ileocecal valve and the appendiceal orifice were visualized and appeared normal. Prep was excellent. Mucosa of the cecum, ascending colon, transverse colon, descending colon, sigmoid colon, and rectum appeared were significant for granularity, erythema and numerous superficial ulcerations with biopsies taken of the right colon, transverse colon, left colon and rectum. The terminal ileum was also intubated and significant for erythema and superficial ulcerations. Retroflexion was performed in the rectum and no lesions were seen. The patient tolerated the procedure well. IMPRESSION: Moderate to severe pancolitis with granularity, erythema, and ulcerations noted throughout the colon and into the terminal ileum with suspicion for Crohn's colitis. RECOMMENDATIONS: Findings of this examination were discussed with the patient and his family. Okay to resume diet. Okay to resume medications. Patient given a follow-up in the GI clinic for Wednesday at 9 AM with Jil Barreto. If biopsies are consistent with inflammatory bowel disease would recommend steroid taper and transition to biologic therapy which was discussed with the patient.
[2020-09-09 11:03] VITALS: BP 114/76; PULSE 71
== END 2020-09-09 11:12 | disposition home or self-care (01) ==
LOC: ORWHC2ENDO 07:33
PROVIDERS: ATTEND Internal Medicine
DX: K51.00 Ulcerative (chronic) pancolitis without complications (principal); F17.210 Nicotine dependence, cigarettes, uncomplicated; E11.43 Type 2 diabetes mellitus with diabetic autonomic (poly)neuropathy; K31.84 Gastroparesis; Z79.899 Other long term (current) drug therapy; Z79.84 Long term (current) use of oral hypoglycemic drugs; Z88.5 Allergy status to narcotic agent
CPT/HCPCS: 45380; J2704; 88305; 88312

== ENCOUNTER 2021-01-12 21:53 | Inpatient (IN) | payer OTHER ==
[2021-01-13 01:44] LABS: Glucose,Whole Blood 237 mg/dL (75-99)
[2021-01-13 02:02] LABS: Basophils % (A) 0 %; Eosinophils % (A) 1 %; HCT 41.8 % (39.0-53.0); HGB 15.3 gm/dL (13.0-17.5); Hyperchromasia Marked; Lymphocytes # (A) 1.2 k/uL (1.0-4.8); Lymphocytes % (A) 16 %; MCH 30.1 pg (25.0-35.0); MCHC 36.6 g/dL (31.0-37.0); MCV 82.2 fL (80.0-100.0); Mean Platelet Volume 9.4; Monocytes # (A) 0.6 k/uL (0-1.0); Monocytes % (A) 8 %; Neutrophils # (A) 5.7 k/uL (1.3-7.7); Neutrophils % (A) 75 %; Platelet Count 158 k/uL (150-450); RBC 5.09 m/uL (4.30-5.90); RDW 13.1 % (11.5-15.5); WBC 7.7 k/uL (3.8-10.6)
[2021-01-13 02:38] LABS: ALT 19 U/L (4-49); AST 26 U/L (17-59); African American GFR (CKD) >90 (>60 ml/min/1.73 sqM); Albumin 4.6 g/dL (3.5-5.0); Alkaline Phosphatase 79 U/L (38-126); Anion Gap 14 mmol/L; Blood Urea Nitrogen 24 mg/dL (9-20); Calcium 9.5 mg/dL (8.4-10.2); Carbon Dioxide 22 mmol/L (22-30); Chloride 101 mmol/L (98-107); Glucose 239 mg/dL (74-99); Lipase 49 U/L (23-300); Non-African American GFR(CKD) >90 (>60 ml/min/1.73 sqM); Potassium 3.7 mmol/L (3.5-5.1); Sodium 137 mmol/L (137-145); Total Bilirubin 1.9 mg/dL (0.2-1.3); Total Protein 7.5 g/dL (6.3-8.2)
[2021-01-13] MEDS ORDERED: KETOROLAC 30 MG/ML 1 ML VIAL IVP STA (03:11)
[2021-01-13] MEDS ORDERED: SODIUM CHLORIDE 0.9% 1,000 ML IV STA ×2 (03:11)
[2021-01-13] MEDS ORDERED: ONDANSETRON 4 MG/2 ML VIAL IVP STA (03:11)
[2021-01-13] MEDS ORDERED: SODIUM CHLORIDE 0.9% 500 ML 500 ML IV STA (03:11)
[2021-01-13] MEDS ORDERED: DEXAMETHASONE SOD PHOSPHATE 10 MG/ML 1 ML VIAL IVP STA (03:11)
--- NOTE | 2021-01-13 03:48 | XR ---
EXAMINATION TYPE: XR chest 1V portable DATE OF EXAM: 01/13/2021 COMPARISON: 06/26/2018 HISTORY: Cough TECHNIQUE: Single view FINDINGS: Heart and mediastinum are normal. Lungs are clear of consolidation. There are no hilar mass es. Bony thorax is intact. There is right-sided nipple shadow noted. IMPRESSION: No active cardiopulmonary disease. No change.
[2021-01-13] MEDS ORDERED: SODIUM CHLORIDE 0.9% 50 ML IVPB ONE (04:15)
[2021-01-13] MEDS ORDERED: CASIRIVIMAB (REGN10933) (EUA) 600 MG, IMDEVIMAB (REGN10987) (EUA) 600 MG in SODIUM CHLO... IVPB ONE (04:15)
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
[2021-01-13] MEDS ORDERED: LORazepam 2 MG/ML INJ IV PRN (05:40)
[2021-01-13] MEDS ORDERED: MORPHINE SULFATE 4 MG/ML SYRINGE IV PRN (05:40)
[2021-01-13] MEDS ORDERED: NALOXONE 0.4 MG/ML 1 ML VIAL IV PRN (05:40)
[2021-01-13] MEDS ORDERED: HYDROmorphone 1 MG/ML 1 ML SYRINGE IVP STA (05:41)
[2021-01-13] MEDS: ONDANSETRON 4 MG/2 ML VIAL IVP PRN ×3 (05:47→21:09)
[2021-01-13] MEDS: SODIUM CHLORIDE 0.9% 1,000 ML IV SCH ×2 (09:42→10:00)
[2021-01-13] MEDS ORDERED: cloNIDine 0.1 MG/24HR PATCH TRANSDERM SCH (10:00)
[2021-01-13] MEDS: LACTATED RINGERS 1,000 ML IV SCH ×2 (10:38→19:03)
[2021-01-13] MEDS ORDERED: SUMAtriptan succinate 50 MG TAB PO PRN (11:10)
[2021-01-13] MEDS ORDERED: PANTOPRAZOLE 40 MG TABLET PO SCH (11:30)
[2021-01-13] MEDS: predniSONE 10 MG TAB PO SCH (13:44)
[2021-01-13] MEDS ORDERED: MAG HYDROX/AL HYDROX/SIMETH 30 ML, HYOSCYAMINE ELIXIR 10 ML, LIDOCAINE VISCOUS 2% 10 ML PO PRN ×3 (15:04)
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
[2021-01-13] MEDS: PANTOPRAZOLE 40 MG/10 ML VIAL IVP SCH (15:22)
[2021-01-13] MEDS: HYDROmorphone 1 MG/ML 1 ML SYRINGE IVP PRN ×2 (15:25→23:56)
[2021-01-13] MEDS: METOCLOPRAMIDE 5 MG/ML 2 ML VIAL IVP SCH ×2 (15:25→23:42)
[2021-01-13 16:44] LABS: Glucose,Whole Blood 259 mg/dL (75-99)
[2021-01-13] MEDS: INSULIN ASPART (NovoLOG) 100 UNIT/ML VIAL SQ SCH ×2 (16:46→21:12)
[2021-01-13] MEDS ORDERED: diphenhydrAMINE 50 MG/ML 1 ML VIAL IVP STA ×2 (19:34→21:10)
[2021-01-13 21:05] LABS: Glucose,Whole Blood 106 mg/dL (75-99)
[2021-01-13] MEDS: HEPARIN SODIUM,PORCINE/PF 5,000 UNIT/0.5 ML SYRINGE SQ SCH (21:12)
[2021-01-13 22:33] LABS: LDH 506 U/L (313-618)
[2021-01-13 22:38] LABS: C Reactive Protein <0.5 mg/dL (<1.0)
[2021-01-14] MEDS: LACTATED RINGERS 1,000 ML IV SCH ×3 (02:49→17:01)
[2021-01-14] MEDS: HYDROmorphone 1 MG/ML 1 ML SYRINGE IVP PRN (03:53)
[2021-01-14 05:00] LABS: Basophils % (A) 0 %; Eosinophils % (A) 0 %; HCT 39.6 % (39.0-53.0); HGB 14.5 gm/dL (13.0-17.5); Hyperchromasia Moderate; Lymphocytes # (A) 1.7 k/uL (1.0-4.8); Lymphocytes % (A) 24 %; MCH 30.4 pg (25.0-35.0); MCHC 36.7 g/dL (31.0-37.0); MCV 82.9 fL (80.0-100.0); Mean Platelet Volume 9.4; Monocytes # (A) 0.6 k/uL (0-1.0); Monocytes % (A) 8 %; Neutrophils # (A) 4.6 k/uL (1.3-7.7); Neutrophils % (A) 66 %; Platelet Count 155 k/uL (150-450); RBC 4.78 m/uL (4.30-5.90); RDW 13.1 % (11.5-15.5); WBC 6.9 k/uL (3.8-10.6)
[2021-01-14 05:31] LABS: ALT 19 U/L (4-49); AST 28 U/L (17-59); African American GFR (CKD) >90 (>60 ml/min/1.73 sqM); Albumin 4.1 g/dL (3.5-5.0); Alkaline Phosphatase 68 U/L (38-126); Anion Gap 11 mmol/L; Blood Urea Nitrogen 12 mg/dL (9-20); Calcium 9.1 mg/dL (8.4-10.2); Carbon Dioxide 26 mmol/L (22-30); Chloride 98 mmol/L (98-107); Glucose 167 mg/dL (74-99); Magnesium 1.7 mg/dL (1.6-2.3); Non-African American GFR(CKD) >90 (>60 ml/min/1.73 sqM); Potassium 3.3 mmol/L (3.5-5.1); Sodium 135 mmol/L (137-145); Total Bilirubin 1.8 mg/dL (0.2-1.3); Total Protein 6.9 g/dL (6.3-8.2)
[2021-01-14] MEDS: ONDANSETRON 4 MG/2 ML VIAL IVP PRN (06:05)
[2021-01-14 07:13] LABS: Glucose,Whole Blood 157 mg/dL (75-99)
[2021-01-14] MEDS: METOCLOPRAMIDE 5 MG/ML 2 ML VIAL IVP SCH (08:39)
[2021-01-14] MEDS: PANTOPRAZOLE 40 MG/10 ML VIAL IVP SCH (08:39)
[2021-01-14] MEDS: INSULIN ASPART (NovoLOG) 100 UNIT/ML VIAL SQ SCH ×4 (08:39→20:59)
[2021-01-14] MEDS: predniSONE 10 MG TAB PO SCH ×2 (08:40)
[2021-01-14] MEDS: HEPARIN SODIUM,PORCINE/PF 5,000 UNIT/0.5 ML SYRINGE SQ SCH ×2 (08:40→20:59)
[2021-01-14] MEDS: ATORVASTATIN 10 MG TAB PO SCH (08:40)
[2021-01-14] MEDS ORDERED: Potassium Replacement Protocol 1 EACH MISC MISCELLANE PRN (10:05)
[2021-01-14] MEDS ORDERED: POTASSIUM CHLORIDE ER 20 MEQ TAB.ER PO STA (10:08)
[2021-01-14] MEDS ORDERED: TRIMETHOBENZAMIDE 100 MG/ML 2 ML VIAL IM PRN (10:13)
[2021-01-14] MEDS ORDERED: METOCLOPRAMIDE 5 MG/ML 2 ML VIAL IVP PRN (10:30)
[2021-01-14] MEDS: MAGNESIUM SULFATE-D5W PMX 1 GM in DEXTROSE/WATER 1 100ML.BAG IVPB SCH ×2 (10:32→11:42)
[2021-01-14 11:26] LABS: Erythrocyte Sedimentation Rate 2 mm/hr (0-15)
[2021-01-14 11:34] LABS: Glucose,Whole Blood 194 mg/dL (75-99)
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
[2021-01-14 16:49] LABS: Glucose,Whole Blood 192 mg/dL (75-99)
[2021-01-14] MEDS: ONDANSETRON 4 MG/2 ML VIAL IVP SCH (17:08)
[2021-01-14 20:50] LABS: Glucose,Whole Blood 208 mg/dL (75-99)
[2021-01-15] MEDS: ONDANSETRON 4 MG/2 ML VIAL IVP SCH ×2 (00:03→07:03)
[2021-01-15] MEDS: LACTATED RINGERS 1,000 ML IV SCH (04:43)
[2021-01-15 05:28] LABS: ALT 20 U/L (4-49); AST 30 U/L (17-59); African American GFR (CKD) >90 (>60 ml/min/1.73 sqM); Albumin 3.7 g/dL (3.5-5.0); Alkaline Phosphatase 63 U/L (38-126); Anion Gap 7 mmol/L; Blood Urea Nitrogen 10 mg/dL (9-20); Calcium 8.6 mg/dL (8.4-10.2); Carbon Dioxide 29 mmol/L (22-30); Chloride 97 mmol/L (98-107); Glucose 180 mg/dL (74-99); Non-African American GFR(CKD) >90 (>60 ml/min/1.73 sqM); Potassium 3.2 mmol/L (3.5-5.1); Sodium 133 mmol/L (137-145); Total Bilirubin 2.1 mg/dL (0.2-1.3); Total Protein 6.4 g/dL (6.3-8.2)
[2021-01-15] MEDS ORDERED: POTASSIUM CHLORIDE ER 20 MEQ TAB.ER PO STA ×2 (08:32→09:20)
[2021-01-15 09:31] LABS: Glucose,Whole Blood 253 mg/dL (75-99)
--- NOTE | 2021-01-15 10:02 | P.PN ---
Subjective Progress Note Date: 01/14/21 Principal diagnosis: Intractable nausea and vomiting Acute covid 19 infection This is a pleasant 40 years old male with past medical history of Diabetes Mellitus, GERD/Reflux, GI Bleed, Hyperlipidemia, Hypertension, history of Crohn's who was recently diagnosed per his GI [facility] [place]. She presents because of abdominal pain, nausea vomiting since 2 days ago. Patient states that is been vomiting all day yesterday and he could not keep anything down. No bowel movement for the last 34 days Was complaining of from lower abdominal pain for about 2 months that comes and goes, usually lasts for 2 hours, yesterday it was more severe, when he came in was 8/10 now is better luck 2-3 Will with pain medication. Nonspecific nonradiating. No urinary complaints. No chest pain or dyspnea. No headache or weakness or numbness. He denies taking prednisone, he used to take it for his used, but this stopped it about one month ago since his been diagnosed with Crohn's he was started with Humira Patient currently kept on clear liquid diet Vitas looks stable. Labs including CBC, BMP and liver enzymes are unremarkable except for mildly high bilirubin 1.9 and elevated glucose 239 At home he takes Amaryl 4 mg, trulicity, but also he is on prednisone 25 mg daily and Humira In the emergency room he received Decadron, normal saline, Toradol and Zofran. Continued with Ringer lactate 01/14/2021 Patient is currently resting in the bed. Still having intractable nausea and episodes of vomiting. Continued on symptomatic management. Potassium is being replaced. Patient was seen by GI. Patient was recently diagnosed with Crohn's colitis in August 2020. He was started on Humira about a month ago. CRP and ESR within normal limits. No complains of chest pain or shortness of breath. No cough or sputum production. Patient has been afebrile. No headache or dizziness or lightheadedness. Laboratory data showed sodium 135 potassium 3.3 chloride 98 BUN: Creatinine 0.65 and magnesium 1.7, liver enzymes are not elevated. Current medications reviewed. Objective - Vital Signs Vital signs: Vital Signs Temp 98.0 F 01/14/21 13:24 Pulse 85 01/14/21 13:24 Resp 18 01/14/21 13:24 BP 181/103 01/14/21 13:24 Pulse Ox 100 01/14/21 13:24 Intake & Output 01/13/21 01/14/21 01/14/21 18:59 06:59 18:59 Intake Total 1000 1979 Output Total 30 Balance 999 1949 Weight 81.647 kg Intake: Intake, IV Titration 1000 1500 Amount Lactated Ringers 1,000 ml 1000 1500 @ 125 mls/hr IV .Q8H THERON Rx#:[id number] Oral 480 Output: Emesis 30 Other: # Voids 2 - Exam GENERAL: The patient is alert and oriented x3, not in any acute distress. Well developed, well nourished. HEENT: Pupils are round and equally reacting to light. EOMI. No scleral icterus. No conjunctival pallor. Normocephalic, atraumatic. No pharyngeal erythema. No thyromegaly. CARDIOVASCULAR: S1 and S2 present. No murmurs, rubs, or gallops. PULMONARY: Chest is clear to auscultation, no wheezing or crackles. -ABDOMEN: Soft, mild suprapubic tenderness nondistended, normoactive bowel sounds. No palpable organomegaly. MUSCULOSKELETAL: No joint swelling or deformity. EXTREMITIES: No cyanosis, clubbing, or pedal edema. NEUROLOGICAL: Gross neurological examination did not reveal any focal deficits. SKIN: No rashes. No petechiae - Labs CBC & Chem 7: 01/14/21 04:10 01/15/21 05:01 Labs: Abnormal Lab Results - Last 24 Hours (Table) 01/13/21 01/13/21 01/14/21 Range/Units 16:41 21:03 04:10 Sodium 135 L (137-145) mmol/L Potassium 3.3 L (3.5-5.1) mmol/L Creatinine 0.65 L (0.66-1.25) mg/dL Glucose 167 H (74-99) mg/dL POC Glucose (mg/dL) 259 H 106 H (75-99) mg/dL Total Bilirubin 1.8 H (0.2-1.3) mg/dL 01/14/21 01/14/21 Range/Units 07:12 11:32 Sodium (137-145) mmol/L Potassium (3.5-5.1) mmol/L Creatinine (0.66-1.25) mg/dL Glucose (74-99) mg/dL POC Glucose (mg/dL) 157 H 194 H (75-99) mg/dL Total Bilirubin (0.2-1.3) mg/dL Assessment and Plan Assessment: Acute gastroenteritis likely due to COVID-19 infection Crohn's disease diagnosed in August 2020. On Humira started about a month ago. Diabetes mellitus Hypertension Hyperlipidemia History of GERD History of GI bleed secondary to gastric ulcer Gastroparesis History of Crohn's Plan: This is a pleasant 40 years old male who presents with intractable nausea vomiting and lower abdominal pain Continue with antiemetic medication and symptomatic treatment. GI recommends no intervention at this time. IV hydration Clear liquid diet Continue with insulin sliding scale GI consult Check ESR and C-reactive protein Discontinue prednisone Labs and medication were reviewed. Monitor lytes and vitals. DVT and GI prophylaxis. Further recommendations depends on the clinical course of the patient DVT prophylaxis: Subcutaneous heparin GI Prophylaxis: Ppi Prognosis is guarded Time with Patient: Greater than 30
[2021-01-15] MEDS: PANTOPRAZOLE 40 MG/10 ML VIAL IVP SCH (10:11)
[2021-01-15] MEDS: INSULIN ASPART (NovoLOG) 100 UNIT/ML VIAL SQ SCH ×2 (10:11→12:52)
[2021-01-15] MEDS: ATORVASTATIN 10 MG TAB PO SCH (10:12)
[2021-01-15] MEDS: HEPARIN SODIUM,PORCINE/PF 5,000 UNIT/0.5 ML SYRINGE SQ SCH (10:12)
[2021-01-15] MEDS: predniSONE 10 MG TAB PO SCH (10:12)
--- NOTE | 2021-01-15 10:37 | P.PN ---
Subjective Progress Note Date: 01/15/21 Principal diagnosis: Nausea and vomiting, COVID-19 40-year-old male with a recent diagnosis of COVID-19 pneumonia presented to the emergency department with complaints of nausea and vomiting. Patient also has a recent diagnosis of Crohn's colitis who is currently being treated by tracie pritchard and is recently put on Humira for the last 1 month duration. Inflammatory markers have been negative. Symptoms related to COVID-19 virus. He states that his nausea vomiting have improved. He denies any abdominal pain. Denies any diarrhea. He is tolerating a clear liquid diet. He has been afebrile. Repeat potassium today 3.2. Objective - Vital Signs Vital signs: Vital Signs Temp 97.8 F 01/15/21 05:43 Pulse 63 01/15/21 05:43 Resp 14 01/15/21 05:43 BP 150/93 01/15/21 05:43 Pulse Ox 100 01/15/21 05:43 Intake & Output 01/14/21 01/15/21 01/15/21 18:59 06:59 18:59 Intake Total 1200 1200 Balance 1200 1200 Intake: IV 1200 1200 Lactated Ringers 1,000 ml 1000 1200 @ 100 mls/hr IV .Q10H THERON Rx#:[id number] Magnesium Sulfate-D5w Pmx 200 1 gm In Dextrose/Water 1 100ml.bag @ 100 mls/hr IVPB Q1H THERON Rx#: [id number] Other: Voiding Method Toilet - Exam General appearance: The patient is alert, oriented, appears in no acute distress. HET: Head is normocephalic and atraumatic. Conjunctiva pink. Sclera anicteric. Neck: Supple without lymphadenopathy. Abdomen: Soft, nontender, nondistended with bowel sounds. No guarding or rigidity. Extremities: Normal skin color and turgor. No pedal edema Skin: No rashes, no jaundice Neurological: No focal deficits. Alert and oriented -3. - Labs CBC & Chem 7: 01/14/21 04:10 01/15/21 05:01 Labs: Abnormal Lab Results - Last 24 Hours (Table) 01/14/21 01/14/21 01/14/21 Range/Units 11:32 16:48 20:48 Sodium (137-145) mmol/L Potassium (3.5-5.1) mmol/L Chloride (98-107) mmol/L Glucose (74-99) mg/dL POC Glucose (mg/dL) 194 H 192 H 208 H (75-99) mg/dL Total Bilirubin (0.2-1.3) mg/dL 01/15/21 01/15/21 Range/Units 05:01 09:28 Sodium 133 L (137-145) mmol/L Potassium 3.2 L (3.5-5.1) mmol/L Chloride 97 L (98-107) mmol/L Glucose 180 H (74-99) mg/dL POC Glucose (mg/dL) 253 H (75-99) mg/dL Total Bilirubin 2.1 H (0.2-1.3) mg/dL Assessment and Plan (1) Nausea and vomiting Narrative/Plan: History 40-year-old male who was recently diagnosed with COVID-19 on 1123 from an outside facility. He presented to the emergency department after having intractable nausea and vomiting for 1-2 days duration. He is seen and evaluated with much improvement in his nausea and vomiting with antiemetics. He denies any diarrhea. Actually states he's not had a bowel movement 3-4 days. The prior to that he had 3 loose bowels but denies any blood in his stool. Patient was also recently diagnosed in August of this year with Crohn's colitis. He was started on Humira approximately one month ago. He states he has been well- controlled but thought that this was a possible flare. CRP and sed rate within normal limits. Likely nausea and vomiting related to virus. Continue with antiemetics. No plans on endoscopic evaluation. Medications adjusted. Patient symptoms improved. No plans on endoscopic evaluation. Patient is cleared for discharge from gastroenterology once potassium corrected. Current Visit: Yes Status: Acute Code(s): R11.2 - NAUSEA WITH VOMITING, UNSPECIFIED SNOMED Code(s): 53820869 (2) Hypokalemia Current Visit: Yes Status: Acute Code(s): E87.6 - HYPOKALEMIA SNOMED Code(s): 39277299 (3) Crohn's disease Narrative/Plan: Follow up with gastroenterology as previously scheduled. Current Visit: Yes Status: Acute Code(s): K50.90 - CROHN'S DISEASE, UNSPECIFIED, WITHOUT COMPLICATIONS SNOMED Code(s): 13419519 Plan: 1. Continue symptomatic and supportive care 2. Antiemetics as needed 3. Continue Zofran as needed 4. Increase to consistent carbohydrate diet 5. No planned endoscopic evaluation 6. Replace potassium per protocol Thank you for this consultation, patient is cleared for discharge from gastroenterology was otherwise medically cleared. Dr. Pam Rosales I agree with the dictator's note, documented as a scribe by Marisol Benjamin.
[2021-01-15 12:06] LABS: Glucose,Whole Blood 173 mg/dL (75-99)
[2021-01-15 12:37] VITALS: BP 134/89; PULSE 93; RESP 17; TEMP 98.3
== END 2021-01-15 14:24 | disposition home or self-care (01) | DRG 177 ==
LOC: EC 21:53 → 1SOBS 01-13 05:40
PROVIDERS: ADMIT Hospitalist; ATTEND Hospitalist
DX: U07.1 COVID-19 (principal); J12.82 Pneumonia due to coronavirus disease 2019; A08.39 Other viral enteritis; K50.10 Crohn's disease of large intestine without complications; K92.0 Hematemesis; E11.43 Type 2 diabetes mellitus with diabetic autonomic (poly)neuropathy; E11.65 Type 2 diabetes mellitus with hyperglycemia; E87.6 Hypokalemia; K44.9 Diaphragmatic hernia without obstruction or gangrene; K29.70 Gastritis, unspecified, without bleeding; E78.5 Hyperlipidemia, unspecified; E86.0 Dehydration; F17.210 Nicotine dependence, cigarettes, uncomplicated; I10 Essential (primary) hypertension; K31.84 Gastroparesis; Z79.899 Other long term (current) drug therapy; Z79.84 Long term (current) use of oral hypoglycemic drugs; Z88.5 Allergy status to narcotic agent; Z87.11 Personal history of peptic ulcer disease; Z86.14 Personal history of Methicillin resistant Staphylococcus aureus infection; Z80.3 Family history of malignant neoplasm of breast; Z80.59 Family history of malignant neoplasm of other urinary tract organ
CPT/HCPCS: 36415; 71045; 80053; 83605; 83615; 83690; 83735; 85025; 85652; 86140; 96361; 96375; 99284

== ENCOUNTER 2021-02-20 09:16 | Observation (INO) | payer OTHER ==
[2021-02-20] MEDS ORDERED: ONDANSETRON 4 MG/2 ML VIAL IVP STA (10:07)
[2021-02-20] MEDS ORDERED: SODIUM CHLORIDE 0.9% 1,000 ML IV STA ×2 (10:07)
[2021-02-20] MEDS ORDERED: fentaNYL (PF) 50 MCG/ML 2 ML AMP IV STA (10:08)
[2021-02-20 10:24] LABS: Basophils % (A) 0 %; Eosinophils # (A) 0.1 k/uL (0-0.7); Eosinophils % (A) 1 %; HCT 44.4 % (39.0-53.0); HGB 15.1 gm/dL (13.0-17.5); Lymphocytes # (A) 1.2 k/uL (1.0-4.8); Lymphocytes % (A) 9 %; MCH 30.9 pg (25.0-35.0); MCHC 34.1 g/dL (31.0-37.0); Mean Platelet Volume 8.1; Monocytes # (A) 0.5 k/uL (0-1.0); Monocytes % (A) 3 %; Neutrophils # (A) 11.7 k/uL (1.3-7.7); Neutrophils % (A) 86 %; Platelet Count 216 k/uL (150-450); RDW 13.3 % (11.5-15.5); WBC 13.5 k/uL (3.8-10.6)
[2021-02-20 10:34] LABS: MCV 90.5 fL (80.0-100.0)
[2021-02-20 10:38] LABS: ALT 27 U/L (4-49); AST 26 U/L (17-59); African American GFR (CKD) >90 (>60 ml/min/1.73 sqM); Albumin 4.7 g/dL (3.5-5.0); Alkaline Phosphatase 82 U/L (38-126); Anion Gap 11 mmol/L; Blood Urea Nitrogen 18 mg/dL (9-20); Calcium 9.6 mg/dL (8.4-10.2); Carbon Dioxide 26 mmol/L (22-30); Chloride 101 mmol/L (98-107); Glucose 226 mg/dL (74-99); Lipase 54 U/L (23-300); Non-African American GFR(CKD) >90 (>60 ml/min/1.73 sqM); Potassium 3.7 mmol/L (3.5-5.1); Sodium 138 mmol/L (137-145); Total Bilirubin 1.5 mg/dL (0.2-1.3); Total Protein 7.7 g/dL (6.3-8.2)
--- NOTE | 2021-02-20 12:06 | CT ---
EXAMINATION TYPE: CT abdomen pelvis w con DATE OF EXAM: 02/20/2021 COMPARISON: CT abdomen and pelvis March 17, 2018 HISTORY: Abdominal pain and blood in emesis. CT DLP: 834 mGycm, Automated Exposure Control for Dose Reduction was Utilized. CONTRAST: CT scan of the abdomen and pelvis is performed without oral but with IV Contrast, patient injected wi th 100ml mL of Isovue 370. FINDINGS: LUNG BASES: No significant abnormality is appreciated. LIVER/GB: No significant abnormality is appreciated. PANCREAS: No significant abnormality is seen. SPLEEN: No significant abnormality is seen. ADRENALS: No significant abnormality is seen. KIDNEYS: Symmetric cortical medullary uptake and excretion without hydronephrosis seen bilaterally. BOWEL: Suboptimal evaluation of bowel without enteric contrast in a patient having little intra-abdom inal fat. No suspicious small or large bowel dilatation is present. Appendix remains mildly dilated a t up to 8 mm coronal image 30 from base of cecum but there is no surrounding fat stranding to suggest acute appendicitis. Slightly prominent low density suspected fluid-filled small bowel loop anterior upper pelvis in the midline which 62 of uncertain significance as there is no proximal dilatation. PROSTATE/SEMINAL VESICLES: No gross abnormality seen. LYMPH NODES: No greater than 1cm abdominal or pelvic lymph nodes are appreciated. OSSEOUS STRUCTURES: There are 6 lumbar type vertebra redemonstrated. OTHER: Mild to moderate mixed plaque of the infrarenal abdominal aorta extends into iliac branch vess els. IMPRESSION: No bowel obstruction is present. No significant new or acute finding is seen to account for patient's clinical symptoms.
[2021-02-20] MEDS ORDERED: PROCHLORPERAZINE INJ 10 MG/2 ML VIAL IVP STA (12:22)
[2021-02-20] MEDS ORDERED: hydrALAZINE HCL 20 MG/ML 1 ML VIAL IVP PRN (13:00)
[2021-02-20 13:39] LABS: Appearance,Urine Clear (Clear); Bilirubin,Urine Negative (Negative); Blood,Urine Negative (Negative); Color,Urine Yellow; Glucose,Urine (UA) 4+ (Negative); Hyaline Casts,Urine 1 /lpf (0-2); Leukocyte Esterase,Urine Negative (Negative); Mucus,Urine Many /hpf; Nitrite,Urine Negative (Negative); Protein,Urine 1+ (Negative); RBC,Urine <1 /hpf (0-5); Specific Gravity,Urine 1.033 (1.001-1.035); Squamous Epithelial Cell,Urine <1 /hpf (0-4); Urobilinogen,Urine <2.0 mg/dL (<2.0); WBC,Urine 2 /hpf (0-5)
[2021-02-20 13:41] LABS: Ketones,Urine 3+ (Negative)
--- NOTE | 2021-02-20 14:33 | HP ---
HISTORY AND PHYSICAL DATE OF SERVICE: 02/20/2021 CHIEF COMPLAINTS: Nausea, vomiting, hematemesis. HISTORY OF PRESENT ILLNESS: This 40-year-old gentleman with a past medical history of diabetes mellitus, GERD, hypertension being followed by Dr. Oliva in the outpatient setting was recently admitted with COVID-19 infection to [facility]. Patient improved significantly but currently the patient complains of some vomiting and subsequently, patient noted coffee-ground and bloody vomitus. The patient came to [facility] and admitted to the hospital further evaluation and treatment. The patient also complaining of diffuse abdominal pain. There is history of guarding. No history of chest pain, palpitations at this time. PAST MEDICAL HISTORY: Recent Covid 19 infection, history of GERD, hypertension, history of diabetes mellitus type 2. MEDICATIONS: Home medications are: Sumatriptan, Motrin, Zestril, Protonix, Zofran, Amaryl, Lipitor, Humira pen. ALLERGIES: DILAUDID AND MORPHINE. FAMILY HISTORY: History of cancer, skin, breast and uterine cancer in the family. SOCIAL HISTORY: History of smoking, history of THC. REVIEW OF SYSTEMS: ENT: No diminished vision. No diminished hearing. CARDIOVASCULAR: No angina or palpitations. RESPIRATORY: As mentioned earlier. GI: As mentioned earlier. : No dysuria. NERVOUS SYSTEM: No numbness or weakness. ALLERGY/IMMUNOLOGY: No asthma or hayfever. MUSCULOSKELETAL: As mentioned earlier. HEMATOLOGY/ONCOLOGY: NO history of anemia. ENDOCRINE: As mentioned earlier. CONSTITUTIONAL: As mentioned earlier. DERMATOLOGY: Negative. RHEUMATOLOGY: Negative. PSYCHIATRIC: As mentioned earlier. PHYSICAL EXAMINATION: Alert and oriented times three. Pulse 113, blood pressure 192/107, respiration 20, temperature 97 degrees, pulse ox 100% on room air. HEENT: Conjunctivae normal. NECK: No JVD. CARDIOVASCULAR: S1, S2. RESPIRATORY: Breath sounds diminished in the bases. A few scattered rhonchi. ABDOMEN: Soft, nontender. No mass palpable. LEGS: No edema. No swelling. NERVOUS SYSTEM: No focal motor or sensory deficits. LYMPHATICS: No lymph nodes palpable in the neck, axillae or groin. SKIN: No ulcer, no rash, no bleeding. JOINTS: No active deforming arthropathy. LAB STUDIES: WBC 13.2, hemoglobin 15.1, sodium 130, potassium 3.2. ASSESSMENT: 1. Acute upper bleeding, rule out peptic ulcer disease or Morenita-Espinoza syndrome. 2. Possible acute gastritis. 3. Accelerated hypertension with hypertensive urgency. 4. Increased WBC. 5. History of recent Covid 19 infection. 6. Diabetes mellitus, type 2. 7. Elevated total bilirubin. 8. History of gastroesophageal reflux disease. 9. Hypertension. 10.MRSA. 11.History of nicotine dependence. RECOMMENDATIONS AND DISCUSSION: This 40-year-old gentleman presents with multiple complex medical issues, we will monitor the patient closely, continue the current medications, management and symptomatic treatment. Otherwise, at this time, I recommend symptomatic treatment. Control the blood pressure. Gastroenterology evaluation. Monitor hemoglobin closely. Possible endoscope. Resume the home medications. Guarded prognosis. Further recommendations to follow. We will recheck for Covid 19 also. MMODL / IJN: [id number] /
[2021-02-20] MEDS ORDERED: NALOXONE 0.4 MG/ML 1 ML VIAL IV PRN (15:08)
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
[2021-02-20] MEDS ORDERED: SUMAtriptan succinate 50 MG TAB PO PRN (16:33)
[2021-02-20] MEDS: PANTOPRAZOLE 40 MG/10 ML VIAL IVP SCH ×2 (18:21→20:26)
[2021-02-20 18:46] LABS: Glucose,Whole Blood 156 mg/dL (75-99)
[2021-02-20] MEDS: INSULIN ASPART (NovoLOG) 100 UNIT/ML VIAL SQ SCH ×2 (19:02→20:26)
[2021-02-20 20:25] LABS: Glucose,Whole Blood 187 mg/dL (75-99)
[2021-02-20] MEDS: ONDANSETRON 4 MG/2 ML VIAL IVP PRN (23:24)
[2021-02-21] MEDS: SODIUM CHLORIDE 0.9% 1,000 ML IV SCH ×5 (02:26→21:22)
[2021-02-21] MEDS ORDERED: LORazepam 2 MG/ML INJ IV PRN (04:23)
[2021-02-21] MEDS: LORazepam 2 MG/ML INJ IV STA ×2 (05:27→05:37)
[2021-02-21 07:42] LABS: Glucose,Whole Blood 174 mg/dL (75-99)
[2021-02-21 09:13] LABS: Basophils # (A) 0.01 X 10*3/uL (0.00-0.10); Basophils % (A) 0.1 %; Eosinophils # (A) 0 X 10*3/uL (0.04-0.35); Eosinophils % (A) 0 %; HGB 13.5 g/dL (13.0-17.0); Lymphocytes % (A) 17.4 %; MCH 30.8 pg (27.0-32.0); MCHC 34.6 g/dL (32.0-37.0); Mean Platelet Volume 11.2 fL (9.5-12.2); Monocytes # (A) 0.56 X 10*3/uL (0.20-1.00); Monocytes % (A) 6.1 %; Neutrophils # (A) 7.02 X 10*3/uL (1.80-7.70); Neutrophils % (A) 76.2 %; Platelet Count 189 X 10*3/uL (140-440); RBC 4.38 X 10*6/uL (4.40-5.60); RDW 13.3 % (11.5-14.5); WBC 9.21 X 10*3/uL (4.50-10.00)
[2021-02-21 09:54] LABS: African American GFR (CKD) 136.8 (60.0-200.0); Albumin 4.1 g/dL (3.8-4.9); Albumin/Globulin Ratio 1.95 (1.60-3.17); Anion Gap 11.2 mmol/L (10.00-18.00); BUN/Creat Ratio 18.14 Ratio (12.00-20.00); Blood Urea Nitrogen 12.7 mg/dL (9.0-27.0); Calcium 8.7 mg/dL (8.7-10.3); Carbon Dioxide 23.8 mmol/L (20.0-27.5); Globulin 2.1 g/dL (1.6-3.3); Potassium 3.5 mmol/L (3.5-5.5); Total Bilirubin 1.1 mg/dL (0.30-1.20); Total Protein 6.2 g/dL (6.2-8.2)
[2021-02-21] MEDS: INSULIN ASPART (NovoLOG) 100 UNIT/ML VIAL SQ SCH ×4 (11:01→20:38)
[2021-02-21] MEDS: ONDANSETRON 4 MG/2 ML VIAL IVP PRN ×2 (11:06→18:25)
[2021-02-21] MEDS: PANTOPRAZOLE 40 MG/10 ML VIAL IVP SCH ×2 (11:07→20:39)
[2021-02-21] MEDS: ATORVASTATIN 10 MG TAB PO SCH (11:25)
[2021-02-21 12:08] LABS: Glucose,Whole Blood 149 mg/dL (75-99)
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
--- NOTE | 2021-02-21 15:22 | PN ---
PROGRESS NOTE DATE OF SERVICE: 02/21/2021 This 40-year-old gentleman who was admitted with acute upper GI bleeding was evaluated for possible Morenita-Espinoza syndrome or peptic ulcer disease. Dr. Rosales has recommended outpatient followup. No chest pain. No palpitation. Hemoglobin is 13.5. PHYSICAL EXAMINATION: Alert and oriented x3. Pulse is 91, blood pressure 138/79, respiration 15, temperature 98.7, pulse ox 99% on room air. HEENT: Conjunctivae normal. NECK: No jugular venous distention. CARDIOVASCULAR: S1, S2 muffled. RESPIRATION: Breath sounds diminished at the bases. No rhonchi. No crackles. ABDOMEN: Soft, nontender. No mass palpable. NERVOUS SYSTEM: No focal deficit. LABS: WBC 9.2, hemoglobin 13.5. ASSESSMENT: 1. 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 2. Possible acute gastritis; unable to keep anything down. 3. Accelerated hypertension with hypertensive urgency. 4. Increased white count. 5. History of recent COVID-19 infection. 6. Diabetes mellitus, type 2. 7. Elevated total bilirubin. 8. History of gastroesophageal reflux disease. 9. Hypertension. 10.History of MRSA. 11.History of nicotine dependence. RECOMMENDATIONS AND DISCUSSION: I recommend to continue current medications, continue with the monitoring, symptomatic treatment. Otherwise, advance diet if tolerated. Closely with GI. Guarded prognosis. Further recommendations to follow. MMGUYL / JULI: [id number] /
[2021-02-21 17:22] LABS: Glucose,Whole Blood 164 mg/dL (75-99)
[2021-02-21 20:20] LABS: Glucose,Whole Blood 192 mg/dL (75-99)
[2021-02-21] MEDS ORDERED: ACETAMINOPHEN TAB 325 MG TAB PO PRN (20:52)
[2021-02-22] MEDS: SODIUM CHLORIDE 0.9% 1,000 ML IV SCH (01:09)
[2021-02-22 07:40] VITALS: BP 183/97; PULSE 83; RESP 18; TEMP 98
[2021-02-22 07:44] LABS: Glucose,Whole Blood 193 mg/dL (75-99)
[2021-02-22] MEDS: INSULIN ASPART (NovoLOG) 100 UNIT/ML VIAL SQ SCH ×2 (08:38→12:46)
[2021-02-22] MEDS: ATORVASTATIN 10 MG TAB PO SCH (08:38)
[2021-02-22] MEDS: PANTOPRAZOLE 40 MG/10 ML VIAL IVP SCH (08:38)
[2021-02-22 11:35] LABS: Basophils # (A) 0.02 X 10*3/uL (0.00-0.10); Basophils % (A) 0.2 %; Eosinophils # (A) 0 X 10*3/uL (0.04-0.35); Eosinophils % (A) 0 %; HGB 15.1 g/dL (13.0-17.0); Lymphocytes # (A) 2.91 X 10*3/uL (0.90-5.00); MCH 30.2 pg (27.0-32.0); MCHC 34.3 g/dL (32.0-37.0); Mean Platelet Volume 10.9 fL (9.5-12.2); Monocytes # (A) 0.69 X 10*3/uL (0.20-1.00); Monocytes % (A) 6.9 %; Neutrophils # (A) 6.37 X 10*3/uL (1.80-7.70); Neutrophils % (A) 63.6 %; Platelet Count 232 X 10*3/uL (140-440); RDW 13.2 % (11.5-14.5); WBC 10.02 X 10*3/uL (4.50-10.00)
[2021-02-22 12:01] LABS: Glucose,Whole Blood 197 mg/dL (75-99)
--- NOTE | 2021-02-23 00:33 | P.DS ---
Providers Date of admission: 02/20/21 15:15 Attending physician: Iban Jamison Consults: 02/20/21 15:09 Consult Physician Routine Consulting Provider: Zakiya Rosales Consult Reason/Comments: Upper GI bleed, gastritis Do you want consulting provider notified?: Yes Primary care physician: Naz Oliva Hospital Course: Please note that patient was not discharged but he left AGAINST MEDICAL ADVICE Diagnoses: Hematemesis secondary to recurrent nausea vomiting with suspected annetta nelsy tear and gastritis Abdominal pain, secondary to above History of Crohn's disease Diabetes mellitus Hospital course: This is a pleasant 40 years old male who presents with hematemesis and recurrent nausea vomiting, his been evaluated by GI service was suspected to have annetta nelsy tear and gastritis, he was treated with IV Protonix 40 mg 2 times a day, he started diet but he did not eat much over the last today, this morning he only ate part of dyspnea and he was still have some mild left-sided abdominal pain, however no more vomiting or hematemesis noted. No diarrhea. No other significant symptoms. Patient however does not want to stay in the hospital, his father and mother were at bedside upon his request they tried to convince him to state but he refused. I explained the risks and benefits including but not limited to worsening bleeding or vomiting, organ dysfunction and or , who verbalized un derstanding but he was adamant to leave AMA. Patient has capacity to make medical decision based upon my evaluation. Patient was instructed to follow up with PCP and GI service as soon as possible and to come to emergency room if he changes his mind or develop any further or more symptoms or signs and he agrees. Physical exam Gen: patient is a AAOx3, no distress CVS: S1-S2, RRR, no murmur Lungs: B/L CTA, no wheezing -Abdomen: soft, no distention,mild left sided upper abdominal tenderness, positive bowel sounds Extremity: no leg edema or induration Time spent more than 35 minutes Patient Condition at Discharge: Fair Plan - Discharge Summary New Discharge Prescriptions: No Action Glimepiride [Amaryl] 4 mg PO AC-BRKFST Pantoprazole Sodium [Protonix] 40 mg PO BID Atorvastatin [Lipitor] 10 mg PO QAM SUMAtriptan succinate 100 mg PO BID PRN PRN Reason: MIGRAINES lisinopriL [Zestril] 2.5 mg PO DAILY Adalimumab [Humira(Cf) Pen] 40 mg SQ Q14D Ibuprofen [Motrin] 800 mg PO Q8H PRN PRN Reason: Pain Ondansetron Odt [Zofran ODT] 4 mg PO BID PRN PRN Reason: Nausea Discharge Medication List Glimepiride [Amaryl] 4 mg PO AC-BRKFST 03/17/18 [History] Pantoprazole Sodium [Protonix] 40 mg PO BID 05/23/18 [History] Atorvastatin [Lipitor] 10 mg PO QAM 11/10/18 [History] SUMAtriptan succinate 100 mg PO BID PRN 09/05/20 [History] Adalimumab [Humira(Cf) Pen] 40 mg SQ Q14D 01/13/21 [History] Ibuprofen [Motrin] 800 mg PO Q8H PRN 01/13/21 [History] Ondansetron Odt [Zofran ODT] 4 mg PO BID PRN 01/13/21 [History] lisinopriL [Zestril] 2.5 mg PO DAILY 01/13/21 [History] Follow up Appointment(s)/Referral(s): Naz Oliva DO [Primary Care Provider] - 1-2 days Discharge Disposition: Left Against Medical Advice
== END 2021-02-22 12:46 | disposition left against medical advice (07) ==
LOC: EC 09:16 → 6NMEDSUR 15:15
PROVIDERS: ADMIT Hospitalist; ATTEND Hospitalist
DX: K92.0 Hematemesis (principal); K50.10 Crohn's disease of large intestine without complications; E11.9 Type 2 diabetes mellitus without complications; K21.9 Gastro-esophageal reflux disease without esophagitis; D72.829 Elevated white blood cell count, unspecified; R74.8 Abnormal levels of other serum enzymes; R42 Dizziness and giddiness; I10 Essential (primary) hypertension; I16.0 Hypertensive urgency; F17.200 Nicotine dependence, unspecified, uncomplicated; Z86.16 Personal history of COVID-19; Z20.822 Contact with and (suspected) exposure to COVID-19; Z53.29 Procedure and treatment not carried out because of patient's decision for other reasons; Z86.14 Personal history of Methicillin resistant Staphylococcus aureus infection; Z79.84 Long term (current) use of oral hypoglycemic drugs; Z79.899 Other long term (current) drug therapy; Z71.9 Counseling, unspecified; Z88.5 Allergy status to narcotic agent; Z80.8 Family history of malignant neoplasm of other organs or systems; Z80.3 Family history of malignant neoplasm of breast; Z80.49 Family history of malignant neoplasm of other genital organs; Z82.49 Family history of ischemic heart disease and other diseases of the circulatory system
CPT/HCPCS: 96376 ×3; 96361 ×2; 96375 ×3; 96374; 99285; 36415; 80053 ×2; 83690; 85025 ×3; 81001; 87635; 74177; G0378 ×3; J2060; J0360; J0780; J2405 ×2; J3010; C9113 ×3; Q9967; J1790

== ENCOUNTER 2021-10-28 02:14 | Emergency (ER) | payer OTHER ==
[2021-10-28 02:45] VITALS: TEMP 98
[2021-10-28] MEDS ORDERED: SODIUM CHLORIDE 0.9% 2,000 ML IV STA (03:36)
[2021-10-28] MEDS ORDERED: PANTOPRAZOLE 40 MG/10 ML VIAL IVP STA (03:36)
[2021-10-28] MEDS ORDERED: ONDANSETRON 4 MG/2 ML VIAL IVP STA (03:36)
[2021-10-28] MEDS ORDERED: LORazepam 2 MG/ML INJ IV STA (03:44)
[2021-10-28 03:53] LABS: Basophils % (A) 0 %; Eosinophils # (A) 0.2 k/uL (0-0.7); Eosinophils % (A) 2 %; HCT 46.2 % (39.0-53.0); HGB 16.4 gm/dL (13.0-17.5); Lymphocytes # (A) 1.2 k/uL (1.0-4.8); Lymphocytes % (A) 11 %; MCH 31.9 pg (25.0-35.0); MCHC 35.5 g/dL (31.0-37.0); MCV 89.7 fL (80.0-100.0); Mean Platelet Volume 9.2; Monocytes # (A) 0.7 k/uL (0-1.0); Monocytes % (A) 6 %; Neutrophils # (A) 8.8 k/uL (1.3-7.7); Neutrophils % (A) 80 %; Platelet Count 177 k/uL (150-450); RBC 5.15 m/uL (4.30-5.90); RDW 13.1 % (11.5-15.5); WBC 11.1 k/uL (3.8-10.6)
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
[2021-10-28 05:46] LABS: ALT 22 U/L (4-49); AST 29 U/L (17-59); African American GFR (CKD) >90 (>60 ml/min/1.73 sqM); Albumin 4.2 g/dL (3.5-5.0); Alkaline Phosphatase 61 U/L (38-126); Amylase 41 U/L (30-110); Anion Gap 11 mmol/L; Blood Urea Nitrogen 16 mg/dL (9-20); Calcium 8.6 mg/dL (8.4-10.2); Carbon Dioxide 24 mmol/L (22-30); Chloride 99 mmol/L (98-107); Glucose 225 mg/dL (74-99); Lipase 217 U/L (23-300); Non-African American GFR(CKD) >90 (>60 ml/min/1.73 sqM); Potassium 3.4 mmol/L (3.5-5.1); Sodium 134 mmol/L (137-145); Total Bilirubin 2.2 mg/dL (0.2-1.3); Total Protein 6.5 g/dL (6.3-8.2)
[2021-10-28 07:34] VITALS: BP 154/104; PULSE 92; RESP 18
== END 2021-10-28 07:34 | disposition home or self-care (01) ==
LOC: EC 02:14
DX: E86.0 Dehydration (principal); R11.2 Nausea with vomiting, unspecified; E11.9 Type 2 diabetes mellitus without complications; K21.9 Gastro-esophageal reflux disease without esophagitis; Z79.83 Long term (current) use of bisphosphonates; F17.200 Nicotine dependence, unspecified, uncomplicated; Z88.8 Allergy status to other drugs, medicaments and biological substances; Z88.6 Allergy status to analgesic agent
CPT/HCPCS: 36415; 80053; 82150; 83605; 83690; 85025; 99284; 96374; 96375; 96361; J2060; J2405; C9113

== ENCOUNTER 2021-11-29 09:52 | Emergency (ER) | payer OTHER ==
[2021-11-29 10:10] VITALS: RESP 16; TEMP 97.5
[2021-11-29] MEDS ORDERED: SODIUM CHLORIDE 0.9% 1,000 ML IV STA (11:18)
[2021-11-29] MEDS ORDERED: ONDANSETRON 4 MG/2 ML VIAL IVP STA (11:18)
[2021-11-29 12:25] LABS: Basophils % (A) 0 %; Eosinophils % (A) 0 %; HCT 45.6 % (39.0-53.0); HGB 16.3 gm/dL (13.0-17.5); Lymphocytes # (A) 1.1 k/uL (1.0-4.8); Lymphocytes % (A) 10 %; MCH 31.2 pg (25.0-35.0); MCHC 35.8 g/dL (31.0-37.0); Mean Platelet Volume 9.2; Monocytes # (A) 0.3 k/uL (0-1.0); Monocytes % (A) 2 %; Neutrophils # (A) 9.4 k/uL (1.3-7.7); Neutrophils % (A) 87 %; Platelet Count 166 k/uL (150-450); RBC 5.24 m/uL (4.30-5.90); RDW 13.2 % (11.5-15.5); WBC 10.8 k/uL (3.8-10.6)
[2021-11-29 12:35] LABS: ALT 25 U/L (4-49); AST 25 U/L (17-59); African American GFR (CKD) >90 (>60 ml/min/1.73 sqM); Albumin 5.3 g/dL (3.5-5.0); Alkaline Phosphatase 105 U/L (38-126); Amylase 46 U/L (30-110); Anion Gap 17 mmol/L; Blood Urea Nitrogen 20 mg/dL (9-20); Calcium 9.7 mg/dL (8.4-10.2); Carbon Dioxide 22 mmol/L (22-30); Chloride 101 mmol/L (98-107); Glucose 224 mg/dL (74-99); Lipase 98 U/L (23-300); Non-African American GFR(CKD) >90 (>60 ml/min/1.73 sqM); Potassium 4.1 mmol/L (3.5-5.1); Sodium 140 mmol/L (137-145); Total Bilirubin 1.8 mg/dL (0.2-1.3); Total Protein 8.2 g/dL (6.3-8.2)
[2021-11-29 12:45] LABS: Amphetamine Screen,Urine Not Detected (NotDetected); Barbiturate Screen,Urine Not Detected (NotDetected); Benzodiazepines Screen,Urine Not Detected (NotDetected); Cocaine Screen,Urine Not Detected (NotDetected); Methadone Screen, Urine Not Detected (NotDetected); Opiate Screen,Urine Not Detected (NotDetected); Oxycodone Screen, Urine Not Detected (NotDetected); Phencyclidine Screen,Urine Not Detected (NotDetected); Tricyclic Antidepressant,Urine Not Detected (NotDetected); Urn Cannabinoid Scrn Detected (NotDetected)
[2021-11-29] MEDS ORDERED: HALOPERIDOL LACTATE 5 MG/ML 1 ML VIAL IVP ONE (13:02)
[2021-11-29 13:07] LABS: Appearance,Urine Clear (Clear); Bilirubin,Urine Negative (Negative); Blood,Urine Trace (Negative); Color,Urine Yellow; Glucose,Urine (UA) 4+ (Negative); Leukocyte Esterase,Urine Negative (Negative); Mucus,Urine Few /hpf; Nitrite,Urine Negative (Negative); Protein,Urine 1+ (Negative); RBC,Urine <1 /hpf (0-5); Specific Gravity,Urine 1.027 (1.001-1.035); WBC,Urine 1 /hpf (0-5)
[2021-11-29] MEDS ORDERED: KETOROLAC 15 MG/ML 1 ML VIAL IVP STA (13:08)
[2021-11-29 13:11] LABS: Ketones,Urine 3+ (Negative)
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
--- NOTE | 2021-11-29 14:48 | CT ---
EXAMINATION TYPE: CT abdomen pelvis w con CT DLP: 681.9 mGycm, Automated exposure control for dose reduction was used. DATE OF EXAM: 11/29/2021 2:25 PM COMPARISON: CT abdomen pelvis 02/20/2021 CLINICAL INDICATION:Male, 41 years old with history of Abdominal pain, acute, nonlocalized; Abdominal pain. Hx gastroparesis, Crohn's disease TECHNIQUE: Axial CT of the abdomen and pelvis. Sagittal and coronal reformats were created on a [employer] workstation. Contrast used:100 mL of Isovue 300 with IV Contrast, Oral contrast used: without Oral Contrast FINDINGS: LOWER CHEST: Unremarkable ABDOMEN LIVER: Unremarkable GALLBLADDER AND BILE DUCTS: Unremarkable. PANCREAS: Unremarkable. SPLEEN: Unremarkable. ADRENAL GLANDS: Unremarkable. KIDNEYS AND URETERS: Punctate nonobstructing right upper pole and mid renal calculi. No evidence of h ydronephrosis. The ureters are unremarkable. PELVIS BLADDER: Unremarkable REPRODUCTIVE: Unremarkable. ABDOMEN & PELVIS STOMACH AND BOWEL: Stomach and duodenum are unremarkable No evidence of bowel obstruction. Appendix i s normal. PERITONEUM: No evidence of pneumoperitoneum or free fluid. VASCULATURE: No evidence of aortic aneurysm. Calcified atherosclerosis. MUSCULOSKELETAL: No aggressive osseous lesions. Symmetric degenerative changes of the sacroiliac join ts bilaterally. LYMPH NODES: No gross evidence for lymphadenopathy. SOFT TISSUE/ABDOMINAL WALL: Unremarkable IMPRESSION: 1. No acute abdominopelvic process. 2. Non-obstructing right renal calculi.
[2021-11-29 15:54] VITALS: BP 167/98; PULSE 89
== END 2021-11-29 15:54 | disposition home or self-care (01) ==
LOC: EC 09:52
DX: R10.9 Unspecified abdominal pain (principal); R11.2 Nausea with vomiting, unspecified; E11.9 Type 2 diabetes mellitus without complications; K21.9 Gastro-esophageal reflux disease without esophagitis; F17.200 Nicotine dependence, unspecified, uncomplicated; Z79.84 Long term (current) use of oral hypoglycemic drugs; Z79.899 Other long term (current) drug therapy
CPT/HCPCS: 96361; 96374; 96375; 99284; 36415; 80053; 82150; 82009; 83690; 85025; 81001; 80306; 87635; 74177; J1630; J2405; J1885; Q9967; 96372

== ENCOUNTER 2021-11-30 20:38 | Observation (INO) | payer OTHER ==
[2021-11-30 20:51] VITALS: TEMP 97.6
[2021-11-30] MEDS ORDERED: METOCLOPRAMIDE 5 MG/ML 2 ML VIAL IVP STA (21:27)
[2021-11-30] MEDS ORDERED: diphenhydrAMINE 50 MG/ML 1 ML VIAL IVP STA (21:27)
[2021-11-30] MEDS ORDERED: FAMOTIDINE 20 MG/2 ML VIAL IV STA (21:27)
[2021-11-30] MEDS ORDERED: ACETAMINOPHEN IV (For NPO) 1,000 MG in SALINE 100 100ML.BAG IVPB ONE (21:30)
[2021-11-30 21:33] LABS: Basophils % (A) 0 %; Eosinophils # (A) 0.1 k/uL (0-0.7); Eosinophils % (A) 1 %; HCT 45.9 % (39.0-53.0); HGB 16.9 gm/dL (13.0-17.5); Lymphocytes # (A) 1.5 k/uL (1.0-4.8); Lymphocytes % (A) 13 %; MCHC 36.7 g/dL (31.0-37.0); MCV 87.2 fL (80.0-100.0); Mean Platelet Volume 8.6; Monocytes # (A) 0.6 k/uL (0-1.0); Monocytes % (A) 5 %; Neutrophils # (A) 9.3 k/uL (1.3-7.7); Neutrophils % (A) 80 %; Platelet Count 181 k/uL (150-450); RBC 5.27 m/uL (4.30-5.90); RDW 12.6 % (11.5-15.5); WBC 11.6 k/uL (3.8-10.6)
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
[2021-11-30 21:58] LABS: ALT 23 U/L (4-49); African American GFR (CKD) >90 (>60 ml/min/1.73 sqM); Albumin 5.2 g/dL (3.5-5.0); Amylase 40 U/L (30-110); Anion Gap 17 mmol/L; Blood Urea Nitrogen 18 mg/dL (9-20); Calcium 10.1 mg/dL (8.4-10.2); Carbon Dioxide 22 mmol/L (22-30); Chloride 96 mmol/L (98-107); Glucose 215 mg/dL (74-99); Lipase 107 U/L (23-300); Non-African American GFR(CKD) >90 (>60 ml/min/1.73 sqM); Sodium 135 mmol/L (137-145); Total Bilirubin 1.9 mg/dL (0.2-1.3)
--- NOTE | 2021-11-30 22:11 | XR ---
EXAMINATION TYPE: XR abdomen acute w cxr DATE OF EXAM: 11/30/2021 COMPARISON: 05/22/2018 chest HISTORY: Abdominal pain TECHNIQUE: 3 view FINDINGS: Heart and mediastinum are normal. Lungs are clear. Diaphragm is normal. Bony thorax is inta ct. Pulmonary vascularity is normal. Bowel gas pattern is normal. No sign of intestinal obstruction o r pneumoperitoneum. Fecal pattern is normal. IMPRESSION: Nonacute abdomen. Normal chest. No change.
[2021-11-30 22:22] LABS: AST 31 U/L (17-59); Alkaline Phosphatase 100 U/L (38-126); Potassium 4.1 mmol/L (3.5-5.1)
[2021-11-30] MEDS ORDERED: HALOPERIDOL LACTATE 5 MG/ML 1 ML VIAL IVP STA (23:54)
--- NOTE | 2021-11-30 23:58 | US ---
EXAMINATION TYPE: US scrotum with doppler. Grayscale and color Doppler Duplex imaging performed of funmilayo barron scrotum. DATE OF EXAM: 11/30/2021 COMPARISON: NONE CLINICAL HISTORY: Testicular pain. Pt states testicle pain that has recently subsided EXAM MEASUREMENTS: TESTICLES: Right Testicle: 4.5 x 2.3 x 3.2 cm Left Testicle: 4.0 x 2.1 x 3.3 cm EPIDIDYMIS HEAD: Right Epididymis: 0.8 cm Left Epididymis: 0.9 cm Doppler performed to assess for testicular vascularity; good bilateral color flow and waveforms are s een. There is no evidence of testicular torsion. Presence of hydroceles: No Presence of varicoceles: No No abnormality visualized at this time IMPRESSION: No testicular torsion or mass. No free fluid. Normal exam.
[2021-12-01] MEDS ORDERED: hydrALAZINE HCL 20 MG/ML 1 ML VIAL IVP STA (00:46)
[2021-12-01 01:44] LABS: Appearance,Urine Clear (Clear); Bilirubin,Urine Negative (Negative); Blood,Urine Negative (Negative); Color,Urine Yellow; Glucose,Urine (UA) 4+ (Negative); Ketones,Urine 1+ (Negative); Leukocyte Esterase,Urine Negative (Negative); Nitrite,Urine Negative (Negative); PH, Urine 6.5 (5.0-8.0); Protein,Urine Trace (Negative); Specific Gravity,Urine 1.021 (1.001-1.035)
[2021-12-01 01:54] LABS: Amphetamine Screen,Urine Not Detected (NotDetected); Barbiturate Screen,Urine Not Detected (NotDetected); Benzodiazepines Screen,Urine Not Detected (NotDetected); Cocaine Screen,Urine Not Detected (NotDetected); Methadone Screen, Urine Not Detected (NotDetected); Opiate Screen,Urine Not Detected (NotDetected); Oxycodone Screen, Urine Not Detected (NotDetected); Phencyclidine Screen,Urine Not Detected (NotDetected); Tricyclic Antidepressant,Urine Not Detected (NotDetected); Urn Cannabinoid Scrn Detected (NotDetected)
[2021-12-01] MEDS ORDERED: ASPIRIN 81 MG PO STA (02:32)
[2021-12-01] MEDS ORDERED: ACETAMINOPHEN TAB 325 MG TAB PO PRN (03:14)
[2021-12-01] MEDS ORDERED: ONDANSETRON 4 MG/2 ML VIAL IVP PRN (03:14)
[2021-12-01] MEDS ORDERED: NALOXONE 0.4 MG/ML 1 ML VIAL IV PRN (03:14)
[2021-12-01] MEDS ORDERED: DEXTROSE 50% SYRINGE 50 ML IVP PRN ×2 (03:18)
[2021-12-01] MEDS ORDERED: METOCLOPRAMIDE 10 MG TAB PO PRN (03:19)
[2021-12-01] MEDS ORDERED: hydrALAZINE HCL 20 MG/ML 1 ML VIAL IVP PRN (03:20)
[2021-12-01] MEDS: SODIUM CHLORIDE 0.9% 1,000 ML IV SCH ×2 (03:32→11:08)
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
[2021-12-01] MEDS ORDERED: INSULIN ASPART (NovoLOG) 100 UNIT/ML VIAL SQ SCH (07:30)
[2021-12-01 07:56] VITALS: PULSE 84; RESP 18
[2021-12-01] MEDS ORDERED: PANTOPRAZOLE 40 MG/10 ML VIAL IV SCH (09:00)
[2021-12-01] MEDS ORDERED: lisinopriL 5 MG TAB PO SCH (09:00)
[2021-12-01] MEDS ORDERED: PANTOPRAZOLE 40 MG TABLET PO SCH (09:00)
[2021-12-01] MEDS ORDERED: ATORVASTATIN 10 MG TAB PO SCH (09:00)
[2021-12-01 12:19] VITALS: BP 165/95
--- NOTE | 2021-12-01 13:10 | P.DS ---
Providers Date of admission: 12/01/21 03:02 Expected date of discharge: 12/01/21 Attending physician: Evelia Perales MD Primary care physician: Naz Oliva Hospital Course: Discharge Diagnosis: Intractable cyclic vomiting, cannot rule out cannabinoid induced hyperemesis syndrome Gastroparesis History of Crohn's disease Diabetes mellitus Hypertensive urgency, BP 150/87 at time of discharge. Patient instructed to continue daily medication regimen with lisinopril and monitor blood pressures twice daily and document findings in a daily log/sternal to bring with him to next PCP appointment as he may need dose changes and/or additional medications. Hospital Course: Patient is a very pleasant 41-year-old male with a past medical history of rec urrent episodes of cyclic vomiting, gastroparesis, diabetes mellitus and Crohn's disease. He presented to the emergency department for intractable nausea, vomiting, and diffuse abdominal pain. He underwent full evaluation. CBC revealed mild leukocytosis with WBC count of 11.6, CMP unremarkable. Lactic acid 1.9. Troponin negative at less than 0.0123 draws. Urinalysis negative for infection. Urine drug screen positive for marijuana. Acute abdominal series negative showing nonacute abdomen. Scrotal ultrasound negative showing no testicular torsion or mass, no free fluid, revealing a normal exam. EKG revealing normal sinus rhythm at 65 bpm with no noted T wave or ST abnormality showing no signs of acute ischemia. Patient was medicated with antibiotics and pain medications, placed on clear liquid diet, and admitted to observation under our services. Since arrival to our facility patient had full resolution of previously reported abdominal pain and denies any further episodes of nausea or vomiting. Clear liquid diet slowly advanced and patient tolerated well. Patient denied having any complaints or concerns, reports feeling back to baseline health. Patient was educated on importance of cessation of cannabis use as this may be cause of cyclic vomiting and was recommended to follow up outpatient with senior center manager secondary to history of Crohn's and gastroparesis. Patient is medically stable for discharge home at this time. Physical exam: Patient seen and examined at bedside. Vital signs reviewed and stable. General: Nontoxic, no distress and appears stated age. Derm: Skin warm and dry, normal coloration for ethnicity. Head: Atraumatic, normocephalic and symmetric. Eyes: EOMs intact, no lid lag, and anicteric sclera Mouth: no lip lesions, mucus membranes moist Cardiovascular: regular rate and rhythm with normal S1S2, no murmur, positive posterior tibial pulses bilaterally, and cap refill < 2 seconds. Lungs: Respirations even, regular, and unlabored on room air. Lungs CTA bilaterally, no rhonchi, no rales, no wheezing, and no accessory muscle usage. Abdominal: soft, nontender to palpation, no guarding, no appreciable organomegaly Ext: ROM intact. No gross muscle atrophy, no edema, no contractures Neuro: Speech clear, face symmetrical and CN II-XII grossly intact with no noted focal neuro deficits Psych: Alert and oriented to person, place, time, and situation. Appropriate and pleasant affect. A total of 35 minutes of time were spent preparing this complex discharge summary. Pt was discharged on 12/02/19 20 1:07 PM Patient Condition at Discharge: Stable Plan - Discharge Summary New Discharge Prescriptions: Continue Glimepiride [Amaryl] 4 mg PO AC-BRKFST Pantoprazole Sodium [Protonix] 40 mg PO BID Atorvastatin [Lipitor] 10 mg PO QAM lisinopriL [Zestril] 2.5 mg PO DAILY Adalimumab [Humira(Cf) Pen] 40 mg SQ Q14D sitaGLIPtin [Januvia] 100 mg PO DAILY Dicyclomine [Bentyl] 10 mg PO TID Ibuprofen [Motrin] 600 mg PO Q8HR PRN #24 tab PRN Reason: Pain Ondansetron Odt [Zofran ODT] 4 mg PO Q8HR PRN #20 tab PRN Reason: Nausea And Vomiting Discharge Medication List Glimepiride [Amaryl] 4 mg PO AC-BRKFST 03/17/18 [History] Pantoprazole Sodium [Protonix] 40 mg PO BID 05/23/18 [History] Atorvastatin [Lipitor] 10 mg PO QAM 11/10/18 [History] Adalimumab [Humira(Cf) Pen] 40 mg SQ Q14D 01/13/21 [History] lisinopriL [Zestril] 2.5 mg PO DAILY 01/13/21 [History] Ibuprofen [Motrin] 600 mg PO Q8HR PRN #24 tab 10/28/21 [Rx] Ondansetron Odt [Zofran ODT] 4 mg PO Q8HR PRN #20 tab 11/29/21 [Rx] Dicyclomine [Bentyl] 10 mg PO TID 12/01/21 [History] sitaGLIPtin [Januvia] 100 mg PO DAILY 12/01/21 [History] Follow up Appointment(s)/Referral(s): Naz Oliva DO [Primary Care Provider] - 1-2 days Zakiya Rosales MD [STAFF PHYSICIAN] - 1 Week Patient Instructions/Handouts: Cannabis Abuse (DC), Hypertensive Crisis (DC), Hypertension (DC), Gastroparesis (DC), Cyclic Vomiting Syndrome (DC) Activity/Diet/Wound Care/Special Instructions: Activity: As tolerated. Take breaks as needed. Diet: Heart healthy and carb consistent diet. Avoid salts, or foods with hidden salts such as canned or boxed foods and frozen dinners. Extra salt makes your heart work harder and traps the fluid in your body for longer. Special Instructions: Take all of your medications as directed and remember to keep all of your doctor's appointments and follow-up as needed. As discussed, recommend cessation of cannabis use. Recommend monitoring your blood pressure at home, twice daily and documenting these findings in a daily log/Journal to bring with you to your next doctor's appointment. No adjustments were made in your medications during this stay, however if you continue to have episodes of elevated pressures you may need additional antihypertensive medication management and/or changes in your current dosage. To ensure adequate changes are made, this may be best managed/monitored through a daily log/Journal as suggested. Thank you for allowing us to participate in your care, it was truly a pleasure having you for our patient!!! Discharge Disposition: HOME SELF-CARE
== END 2021-12-01 14:00 | disposition home or self-care (01) ==
LOC: EC 20:38 → 6NMEDSUR 12-01 03:02
PROVIDERS: ADMIT Internal Medicine; ATTEND Internal Medicine
DX: R11.15 Cyclical vomiting syndrome unrelated to migraine (principal); E11.43 Type 2 diabetes mellitus with diabetic autonomic (poly)neuropathy; K31.84 Gastroparesis; I16.0 Hypertensive urgency; K50.90 Crohn's disease, unspecified, without complications; K29.60 Other gastritis without bleeding; K21.9 Gastro-esophageal reflux disease without esophagitis; F17.200 Nicotine dependence, unspecified, uncomplicated; N50.819 Testicular pain, unspecified; F12.90 Cannabis use, unspecified, uncomplicated; Z88.6 Allergy status to analgesic agent; Z79.84 Long term (current) use of oral hypoglycemic drugs; Z79.899 Other long term (current) drug therapy; Z80.3 Family history of malignant neoplasm of breast; Z80.8 Family history of malignant neoplasm of other organs or systems; Z84.89 Family history of other specified conditions
CPT/HCPCS: 96365; 96375 ×2; 99285; 36415 ×2; 93005; 80053; 82150; 83605; 83690; 84484; 85025; 86140; 81003; 80306; 83036; 74022; 93975; 76870; G0378; J0360; J1200; J1630; J2765; J2405; J0131

== ENCOUNTER → 2022-05-13 | Day surgery (SDC) | payer OTHER ==
[~2022-05-13] MED LIST changes: +GLUCAGON 1 MG/ML VIAL IM STA; -LACTATED RINGERS 1,000 ML IV SCH; -LIDOCAINE 1% (10MG/ML) FOR IV START INTRADERMA PRN
[2022-05-13 08:29] LABS: Glucose,Whole Blood 146 mg/dL (70-110)
[2022-05-13 08:41] VITALS: BP 115/75; PULSE 81; RESP 16; TEMP 97.8
--- NOTE | 2022-05-14 13:32 | MR ---
EXAMINATION TYPE: MR Enterography DATE OF EXAM: 05/13/2022 10:11 AM COMPARISON: CT abdomen pelvis 11/29/2021 CLINICAL INDICATION: Male 42 years old with a history of K50.819 CROHN'S DISEASE OF BOTH SMALL AND LG . Abdomen pain, Crohn's disease, T2D TECHNIQUE: Standard multiplanar, multisequence imaging of the abdomen is performed without and with I V contrast, patient is injected with 1200 mL intravenous Gadavist gadolinium contrast. Oral NeuLumEX was given as per enterography protocol. FINDINGS: LOWER CHEST: No significant findings. ABDOMEN Bowel: The small bowel distention is inadequate proximally. There is mucosal hyperenhancement predomi nantly involving the sigmoid colon extending to the rectum. Wall thickening in this area is present. There is engorgement of the vasculature. Rodriguez measuring up to 8 mm. There is small bowel feces withi n the terminal ileum. Terminal ileum is somewhat dilated measuring 3.3 cm. There may be mild enhancem ent near the terminal ileum evaluation is limited due to motion. Obvious fistulous tract identified. Peritoneum: No evidence of pneumoperitoneum, free fluid, or adenopathy. Liver: Unremarkable. Gallbladder and Bile ducts: Partially distended Pancreas: Unremarkable. Spleen: Unremarkable. Adrenal glands: Unremarkable. Kidneys: Subcentimeter high T2 signal probable cysts. Bladder: Unremarkable. Reproductive: Unremarkable. Lymph Nodes: Vasculature: Unremarkable. No aortic aneurysm. Musculoskeletal: The osseous structures appear intact. Abdominal wall: Unremarkable. IMPRESSION: Motion limited exam. 1. Active Crohn's disease involving the sigmoid colon extending from the descending colon to the rec gerard. 2. Small bowel feces at the terminal ileum suspicious for underlying skip lesion and some degree of obstruction at the ileocecal valve. There may be mild enhancement in the terminal ileum evaluation is limited due to movement. 3. No obvious fistulous tract identified.
== END ==
LOC: RADMRIMAIN 08:09
PROVIDERS: ATTEND Physician Assistant
DX: K50.819 Crohn's disease of both small and large intestine with unspecified complications (principal)
CPT/HCPCS: 96372; 72197; 74183; J1610; A9585